=== PATIENT | male | born 1965 | race Caucasian/White ===

== ENCOUNTER 2016-10-04 10:08 | Inpatient (IN) | payer OTHER ==
[2016-10-09] MEDS ORDERED: methylPREDNISolone SOD SUCCI 125 MG/2 ML VIAL IVP ONE (09:00)
[2016-10-09] MEDS ORDERED: diphenhydrAMINE 50 MG/ML 1 ML VIAL IVP ONE (09:00)
[2016-10-09] MEDS ORDERED: riTUXimab 660 MG in SODIUM CHLORIDE 0.9% 500 ML IV ONE (10:00)
[2016-10-09 10:07] LABS: Anisocytosis Slight; Basophils # (A) 0.1 k/uL (0-0.2); Basophils % (A) 1 %; CH 29.9; CHCM 33.5; Eosinophils # (A) 0.2 k/uL (0-0.7); Eosinophils % (A) 3 %; HCT 33.1 % (39.0-53.0); HDW 3.66; HGB 10.9 gm/dL (13.0-17.5); Luc # (Auto) 0.17; Luc % (Auto) 2; Lymphocytes # (A) 0.4 k/uL (1.0-4.8); Lymphocytes % (A) 5 %; MCH 29.6 pg (25.0-35.0); MCHC 32.9 g/dL (31.0-37.0); MCV 89.9 fL (80.0-100.0); Mean Platelet Volume 6.2; Monocytes # (A) 0.5 k/uL (0-1.0); Monocytes % (A) 7 %; Neutrophils # (A) 5.8 k/uL (1.3-7.7); Neutrophils % (A) 82 %; Poikilocytosis Slight; RBC 3.69 m/uL (4.30-5.90); RDW 16.5 % (11.5-15.5); WBC 7.1 k/uL (3.8-10.6); WBC (Perox) 7.65
[2016-10-09] MEDS: ONDANSETRON 16 MG in SODIUM CHLORIDE 0.9% 50 ML IVPB SCH (10:12)
[2016-10-09 10:19] LABS: INR 1.2 (<1.1); Prothrombin Time 11.5 sec (9.0-12.0)
[2016-10-09] MEDS: HYDROmorphone 1 MG/ML 1 ML SYRINGE IVP PRN ×4 (10:19→23:03)
[2016-10-09 10:24] LABS: ALT 26 U/L (21-72); AST 20 U/L (17-59); Alkaline Phosphatase 113 U/L (38-126); Anion Gap 11 mmol/L; Blood Urea Nitrogen 7 mg/dL (9-20); Calcium 9.5 mg/dL (8.4-10.2); Carbon Dioxide 31 mmol/L (22-30); Chloride 99 mmol/L (98-107); Glucose 134 mg/dL (74-99); Non-African American GFR(MDRD) >60 (>60 ml/min/1.73 sqM); Potassium 3.6 mmol/L (3.5-5.1); Sodium 141 mmol/L (137-145); Total Bilirubin 1.4 mg/dL (0.2-1.3); Total Protein 5.9 g/dL (6.3-8.2)
[2016-10-09] MEDS: predniSONE 50 MG TAB PO SCH ×2 (11:18→21:27)
[2016-10-09] MEDS: FAMOTIDINE 20 MG/2 ML VIAL IVP SCH (11:18)
--- NOTE | 2016-10-09 15:15 | P.HPIM ---
History of Present Illness H&P Date: 10/09/16 Chief Complaint: CIVI for recurrent lymphoma Gopal is a very pleasant 51-year-old male patient of Dr. Stacy who is very well-known known to our service. He was initially diagnosed in September 2014 when he presented with multiple enlarged lymph nodes in the right neck, right groin and bilateral axillary area. He had axillary node biopsy on 2013 revealing a low grade B-cell non-Hodgkin's lymphoma, felt to be consistent with follicular lymphoma. PET scan for staging showed stage III disease at that time. Patient was placed in observation. In 2015 he started having increasing back pain and was found to have progressive virgie enlargement with right hydronephrosis. Patient was started on Rituxan and Bendeka and completed 5 cycles in June 2016. After 3 cycles imaging showed he had an excellent response, cycle #6 was omitted to due to treatment toxicities. Less than a month and a half later patient presented with increased pain and swelling in the right groin. Computed tomography scan showed a new large mass occupying the entire right half of the abdomen extending from the groin to the pancreas. 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 Patient was started on systemic treatment with REPOCH. He has had 2 cycles and is admitted for cycle #3. When seen today the patient explained to me that he had been in the ER 2 days ago for significant groin pain. The pain was so bad that it was doubling him over. Pain was in the bilateral groin areas as well as the suprapubic area, persistent, pain meds were not helping, no associated constipation, dysuria, hematuria, diarrhea. Patient was subsequently sent home and he presents today for treatment with similar complaints in the groin area. The right groin has a lump that is warm and tender to the touch. He has a left anterior cervical lymph node swelling that he states also started 2 days ago. He did have a fever over 101 Fahrenheit, no fevers since the weekend. Patient has left shoulder pain that occurs with rotation of the left arm. There is no numbness or tingling in hands, no loss of muscle strength. Patient feels pretty tired, denies oral irritation, difficulty in swallowing, appetite is fair, no current nausea or vomiting, no shortness of breath or cough, he does have some epigastric discomfort if he presses on his abdomen, patient is independently ambulatory. Review of Systems All systems: negative Constitutional: Reports as per HPI Past Medical History Past Medical History: Cancer, Hypertension, Osteoarthritis (OA) Additional Past Medical History / Comment(s): Lymphoma-dx . USING MOUTH RINSE W / SALT & SODA PRN D/T CHEMO SE. CHEMO Q3 WEEKS FOR 6 DAYS. History of Any Multi-Drug Resistant Organisms: None Reported Past Surgical History: Orthopedic Surgery Additional Past Surgical History / Comment(s): SHATTERED RT HEEL-SX TO REPAIR- HAS PLATE, TEETH EXTRACTED , laparoscopy w/ bx. LYMPH NODE BX. Additional Past Anesthesia/Blood Transfusion Reaction / Comment(s): HAS OCC BECOME COMBATIVE AFTER SX, AND YELLING AND SCREAMING Past Psychological History: No Psychological Hx Reported Smoking Status: Former smoker Past Alcohol Use History: None Reported Additional Past Alcohol Use History / Comment(s): SMOKED OFF AND ON WHEN IN 3RD -4TH AND 5TH GRADE THEN MOVED UP [place] AND DID'NT SMOKE AGAIN UNTIL HE WAS 18- SMOKED 1PPD.quit 08-01-16. Past Drug Use History: None Reported - Past Family History Father Family Medical History: Diabetes Mellitus, Myocardial Infarction ([place]) Additional Family Medical History / Comment(s): ORGANIC BRAIN DISEASE Mother Family Medical History: No Reported History Additional Family Medical History / Comment(s): HERNIA SX. MOM IS 83 AND VERY ACTIVE LIVES IN [place] AND STILL MOWS HER OWN GRASS. Medications and Allergies Home Medications Medication Instructions Recorded Confirmed Type Lactose-Reduced Food [Boost] 237 ml PO TID 09/19/16 10/09/16 History Prochlorperazine [Compazine] 10 mg PO Q6H PRN 10/09/16 10/09/16 History Allergies Allergy/AdvReac Type Severity Reaction Status Date / Time No Known Allergies Allergy Verified 10/09/16 09:42 Physical Exam Vitals: Vital Signs Temp Pulse Resp BP Pulse Ox 10/09/16 14:07 72 137/77 10/09/16 13:18 98.0 F 77 18 147/83 10/09/16 12:26 78 152/91 10/09/16 11:46 74 158/89 10/09/16 11:37 74 162/95 10/09/16 09:30 98.2 F 80 23 156/93 96 Intake and Output 10/08/16 10/09/16 10/09/16 22:59 06:59 14:59 Intake Total 120 Balance 120 Intake: Oral 120 Other: Voiding Method Toilet Weight 61.689 kg Patient Weight 10/10/16 06:59 Weight 61.689 kg - Constitutional General appearance: average body habitus, cooperative, mild distress - EENT right upper lip pea sized mass, hard, purple hue of color to it, no drainage or blisters. Eyes: anicteric sclerae, edentulous, EOMI, normal apperance ENT: hearing grossly normal, normal oropharynx - Neck [place] sized hard, fixed LN in the left anterior cervical chain Neck: lymphadenopathy - Respiratory Respiratory: bilateral: CTA - Cardiovascular Heart sounds: normal: S1, S2 Abnormal Heart Sounds: no systolic murmur, no diastolic murmur, no rub, no S3 Gallop, no S4 Gallop, no click, no other leg Peripheral Edema: bilateral: None - Gastrointestinal General gastrointestinal: no absent bowel sounds, no decreased bowel sounds, no distended, no hepatomegaly, no hyperactive bowel sounds, normal bowel sounds, no organomegaly, no rigid, no scaphoid, soft, no splenomegaly, tenderness, no umbilical hernia, no ventral hernia Localized gastrointestinal: tender: epigastric periumbilical - Genitourinary right groin incision is hard and red, left groin irregular 5cm, red, tender mass , soft, superior to this there feels like an egg size mass. Male genitourinary: left inguinal lymphadenopathy - Integumentary Integumentary: pale - Neurologic Neurologic: CNII-XII intact - Musculoskeletal Musculoskeletal: strength equal bilaterally - Psychiatric Psychiatric: A&O x's 3, appropriate affect, intact judgment & insight Results CBC & Chem 7: 10/09/16 09:40 10/09/16 09:40 Labs: Abnormal Lab Results - Last 24 Hours (Table) 10/09/16 10/09/16 Range/Units 09:40 09:40 RBC 3.69 L (4.30-5.90) m/uL Hgb 10.9 L (13.0-17.5) gm/dL Hct 33.1 L (39.0-53.0) % RDW 16.5 H (11.5-15.5) % Lymphocytes # 0.4 L (1.0-4.8) k/uL Carbon Dioxide 31 H (22-30) mmol/L BUN 7 L (9-20) mg/dL Glucose 134 H (74-99) mg/dL Total Bilirubin 1.4 H (0.2-1.3) mg/dL Total Protein 5.9 L (6.3-8.2) g/dL CT scan - abdomen: report reviewed CT scan - chest: report reviewed CT scan - pelvis: report reviewed Thrombosis Risk Factor Assmnt - DVT/VTE Prophylaxis DVT/VTE Prophylaxis: Mechanical Prophylaxis ordered - Choose All That Apply Any of the Below Risk Factors Present?: Yes Each Factor Represents 1 point: Age 41-60 years Other Risk Factors: No Other congenital or acquired thrombophilia - If yes, enter type in comment: No Thrombosis Risk Factor Assessment Total Risk Factor Score: 1 Thrombosis Risk Factor Assessment Level: Low Risk Assessment and Plan (1) Diffuse large B-cell lymphoma of extranodal site Narrative/Plan: Admit for CIVI chemotherapy, orders were reviewed, labs daily, supportive meds available Status: Chronic (2) Testicular/scrotal pain Narrative/Plan: Case discussed with IM, US ordered for evaluation. Status: Acute (3) Left cervical lymphadenopathy Narrative/Plan: Will reevaluate in AM Status: Acute Plan: Case discussed at length with IM. Empiric abx have been ordered and consult to ID. Will await evaluation and recommendations.
--- NOTE | 2016-10-09 15:28 | P.CONS ---
History of Present Illness - Reason for Consult Consult date: 10/09/16 Medical management Requesting physician: Jerrod Stacy - History of Present Illness 51-year-old gentleman who was recently diagnosed with Hodgkin's lymphoma after a biopsy of a right inguinal mass. Is admitted to the hospital for third cycle of his chemotherapy with rituximab and vincristine prednisone, cyclophosphamide and etoposide. Patient was evaluated on the day of chemotherapy. Patient was noted to have a new lump in his neck that is 2 days old. Patient also has a hardened lesion on his upper lip. Patient is complaining of some pain in his groin associated with urinary urgency. Patient noted some tenderness around his urethra and bilaterally around his groin area. He apparently also had a fever 101 prior to admission. Denies having any history of STDs in the past. Patient also started notes a pain in his left shoulder. Patient is unable to move it due to severe pain especially above his shoulder. Review of Systems All systems: negative (Noted in hpi) Past Medical History Past Medical History: Cancer, Hypertension, Osteoarthritis (OA) Additional Past Medical History / Comment(s): Lymphoma-dx . USING MOUTH RINSE W / SALT & SODA PRN D/T CHEMO SE. CHEMO Q3 WEEKS FOR 6 DAYS. History of Any Multi-Drug Resistant Organisms: None Reported Past Surgical History: Orthopedic Surgery Additional Past Surgical History / Comment(s): SHATTERED RT HEEL-SX TO REPAIR- HAS PLATE, TEETH EXTRACTED , laparoscopy w/ bx. LYMPH NODE BX. Additional Past Anesthesia/Blood Transfusion Reaction / Comm: HAS OCC BECOME COMBATIVE AFTER SX, AND YELLING AND SCREAMING Past Psychological History: No Psychological Hx Reported Smoking Status: Former smoker Past Alcohol Use History: None Reported Additional Past Alcohol Use History / Comment(s): SMOKED OFF AND ON WHEN IN 3RD -4TH AND 5TH GRADE THEN MOVED UP [place] AND DID'NT SMOKE AGAIN UNTIL HE WAS 18- SMOKED 1PPD.quit 08-01-16. Past Drug Use History: None Reported - Past Family History Father Family Medical History: Diabetes Mellitus, Myocardial Infarction ([place]) Additional Family Medical History / Comment(s): ORGANIC BRAIN DISEASE Mother Family Medical History: No Reported History Additional Family Medical History / Comment(s): HERNIA SX. MOM IS 83 AND VERY ACTIVE LIVES IN [place] AND STILL MOWS HER OWN GRASS. Medications and Allergies Home Medications Medication Instructions Recorded Confirmed Type Lactose-Reduced Food [Boost] 237 ml PO TID 09/19/16 10/09/16 History Prochlorperazine [Compazine] 10 mg PO Q6H PRN 10/09/16 10/09/16 History Allergies Allergy/AdvReac Type Severity Reaction Status Date / Time No Known Allergies Allergy Verified 10/09/16 09:42 Physical Exam Vitals: Vital Signs Temp Pulse Resp BP Pulse Ox 10/09/16 14:07 72 137/77 10/09/16 13:18 98.0 F 77 18 147/83 10/09/16 12:26 78 152/91 10/09/16 11:46 74 158/89 10/09/16 11:37 74 162/95 10/09/16 09:30 98.2 F 80 23 156/93 96 Intake and Output 10/09/16 10/09/16 10/09/16 06:59 14:59 22:59 Intake Total 120 Balance 120 Intake: Oral 120 Other: Voiding Method Toilet Weight 61.689 kg Patient Weight 10/10/16 06:59 Weight 61.689 kg Appearance alert oriented 3 Upper lip there is a hard indurated lesion on the right upper lip Neck there is a large mass appreciated on the supraclavicular region on the left. No axillary lymph nodes are appreciated Lungs good air entry clear to auscultation Heart regular rate and rhythm no murmurs appreciated Abdomen is soft nontender no organomegaly Inguinal region there is multiple indurated erythematous lesions and diffusely indurated around the base of the urethra into the bilateral inguinal area. There is some tenderness on palpation of the cord. No scrotal swelling is noted cremasteric reflex is intact. Neurologically moves all 4 extremities. Results CBC & Chem 7: 10/09/16 09:40 10/09/16 09:40 Labs: Abnormal Lab Results - Last 24 Hours (Table) 10/09/16 10/09/16 Range/Units 09:40 09:40 RBC 3.69 L (4.30-5.90) m/uL Hgb 10.9 L (13.0-17.5) gm/dL Hct 33.1 L (39.0-53.0) % RDW 16.5 H (11.5-15.5) % Lymphocytes # 0.4 L (1.0-4.8) k/uL Carbon Dioxide 31 H (22-30) mmol/L BUN 7 L (9-20) mg/dL Glucose 134 H (74-99) mg/dL Total Bilirubin 1.4 H (0.2-1.3) mg/dL Total Protein 5.9 L (6.3-8.2) g/dL Assessment and Plan Plan: #1 Hodgkin's lymphoma currently admitted for chemotherapy. #2 fever of unknown origin suspicion for an infectious process however recurrent bulky lymph nodes are also other differential diagnosis Plan We'll obtain a scrotal ultrasound. Patient was started on Zosyn empirically as patient did have a fever 101. There is multiple bulky lymph nodes including in the anterior neck. A computed tomography scan from 07 of October is reviewed. Did not note the large bulky mass on the left side. This is new compared to a scan 2 years ago. A shoulder x-ray will also be done. There is strength remaining. Would like to rule out a bony lesion. Benefit from an MRI later, with suspicion for superspinatus tendon damage. Time with Patient: Greater than 30
--- NOTE | 2016-10-09 16:05 | XR ---
EXAMINATION TYPE: XR shoulder complete LT DATE OF EXAM: 10/09/2016 4:01 PM COMPARISON: NONE HISTORY: Pain The osseous structures are intact. There is no acute fracture or dislocation. The AC joint is narro wed with hypertrophic change. IMPRESSION: 1. AC joint arthropathy correlate with MRI. Possible chronic rotator cuff disease.
[2016-10-09] MEDS: SODIUM CHLORIDE 0.9% IV SCH ×2 (16:27→16:28)
[2016-10-09] MEDS: VINCRISTINE SULFATE IV SCH (16:27)
[2016-10-09] MEDS: ETOPOSIDE 90 MG in SODIUM CHLORIDE 0.9% 250 ML IV SCH (16:27)
[2016-10-09] MEDS: SALT AND SODA MOUTHWASH 1,000 ML PO SCH ×3 (16:28→20:37)
[2016-10-09] MEDS: DOXORUBICIN HCL IV SCH (16:28)
--- NOTE | 2016-10-09 16:42 | US ---
EXAMINATION TYPE: US scrotum with doppler. TECHNIQUE: Multiple sonographic images of the scrotum were obtained. Color Doppler and spectral wavef orm analysis of the testicular arteries and veins. DATE OF EXAM: 10/09/2016 4:18 PM COMPARISON: NONE CLINICAL HISTORY: 51-year-old male. Right testicular pain. Patient has a history of non Hodgkin's ly mphoma. FINDINGS: EXAM MEASUREMENTS: TESTICLES: Right Testicle: 4.6 x 2.9 x 3.1 cm cm for a volume of 21.7 mL. Left Testicle: 4.2 x 2.3 x 2.4 cm cm for a volume of 12.0 mL. The right testicle shows large hypoechoic regions with increased vascularity. One of these areas stefany ures up to 2.6 cm and a second area measures up to 2.3 cm. Satisfactory arterial and venous flow seen on the right. Satisfactory arterial flow seen on the left with some superimposed venous flow. EPIDIDYMIS HEAD: Right Epididymis: 1.3 x 0.8 cm Left Epididymis: 1.0 x 0.9 cm No epididymal hyperemia seen. There is a moderate-sized right hydrocele containing some low-level echoes. IMPRESSION: 1. A couple focal hypoechoic and hyperemic areas within the right testicle measuring up to 2.6 cm. Or chitis and intratesticular masses including lymphomatous involvement are in the differential. 2. Not sonographic evidence for testicular torsion. 3. Moderate sized right-sided hydrocele containing some debris.
[2016-10-09] MEDS: PIPERACILLIN-TAZOBACTAM 3.375 GM in DEXTROSE/WATER 1 50ML.BAG IVPB SCH (18:27)
[2016-10-09] MEDS: SODIUM CHLORIDE 0.9% 1,000 ML IV SCH (18:31)
[2016-10-09] MEDS: ONDANSETRON 4 MG/2 ML VIAL IVP PRN (20:25)
[2016-10-10] MEDS: PIPERACILLIN-TAZOBACTAM 3.375 GM in DEXTROSE/WATER 1 50ML.BAG IVPB SCH ×3 (01:52→18:12)
[2016-10-10] MEDS: HYDROmorphone 1 MG/ML 1 ML SYRINGE IVP PRN ×5 (01:52→21:07)
[2016-10-10] MEDS: ONDANSETRON 4 MG/2 ML VIAL IVP PRN ×2 (01:52→21:07)
[2016-10-10] MEDS: SODIUM CHLORIDE 0.9% 1,000 ML IV SCH ×4 (01:57→21:10)
[2016-10-10 13:00] VITALS: BMI 21.2
--- NOTE | 2016-10-10 13:04 | PN ---
Patient is admitted here for chemotherapy with new lumps in the inguinal are and the left neck area. Patient had started fever probably of cancer itself and chemotherapy itself. Patient presently clinically doing well and patient was evaluated by Infectious Disease as per Oncology's request and they do not recommend any antibiotics but patient does have significant hardness in the inguinal area and pain in the testicle area radiating to the abdomen because of which Infectious Disease consulted Urology. REVIEW OF SYSTEMS: GENERAL: Pain as described in HPI. CARDIOVASCULAR: No chest pain, no orthopnea, no PND, no palpitations. PULMONARY: Denied any shortness of breath. No cough or hemoptysis. GASTROINTESTINAL: No diarrhea, nausea or vomiting. No abdominal pain. Normoactive bowel sounds. NEUROLOGIC: No headaches, no weakness, no numbness. Medications were reviewed. PHYSICAL EXAMINATION: Temperature 97.0, pulse of 80, respiratory rate of 70, blood pressure 140/93. Saturating at 96% on room air. GENERAL: The patient is alert and oriented x3, not in any acute distress. Well developed, well nourished. HEENT: Pupils are round and equally reacting to light. EOMI. No scleral icterus. No conjunctival pallor. Normocephalic, atraumatic. No pharyngeal erythema. No thyromegaly. CARDIOVASCULAR: S1 and S2 present. No murmurs, rubs, or gallops. PULMONARY: Chest is clear to auscultation, no wheezing or crackles. ABDOMEN: Soft, nontender, nondistended, normoactive bowel sounds. No palpable organomegaly. MUSCULOSKELETAL: No joint swelling or deformity. EXTREMITIES: No cyanosis, clubbing, or pedal edema. NEUROLOGICAL: Gross neurological examination did not reveal any focal deficits. SKIN: No rashes. LYMPH NODE EXAM: Patient has significantly enlarged matted lymph nodes in the left cervical area as well as right inguinal area. Patient appears to be have mostly significant diffuse lymphadenopathy from lymphoma. ASSESSMENT AND PLAN: 1. Hodgkin's lymphoma, admitted for chemotherapy. Patient is presently getting chemotherapy. 2. Fever, possible source being chemo. No source was identified. Patient is on empiric antibiotics, which probably will be discontinued if the cultures are negative. 3. Vestibular pain and swelling due to lymphadenopathy. I believe but Urology was consulted regarding that.
--- NOTE | 2016-10-10 16:21 | CONS ---
DATE OF CONSULTATION: 10/10/2016 REASON FOR CONSULTATION: Left groin swelling. HISTORY OF PRESENT ILLNESS: The patient is a 51-year-old male with a past medical history significant for non-Hodgkin lymphoma, B-cell, no grade, for which the patient has been on chemo. The patient has been admitted to hospital with right groin pain and swelling. Apparently his symptoms have been going on for about 3 to 4 weeks now. The patient said he woke up and started having throbbing pain in his right groin area. The patient denies having any history of any trauma. There is no skin breakdown. There is no drainage. The patient denies any high-grade fever or chills. He was evaluated in the ER and was discharged on some pain medication. However, there was worsening swelling, red and pain in the area and he came to the ER. He has admitted to the hospital directly. I was asked to see the patient for further recommendations regarding antibiotic therapy. The patient did have some dull aching pain in the scrotal area; however, denies any history of any trauma. Pain is 1 to 2 out of 10 and no radiation. There is no skin breakdown. No drainage. The patient denies having any chest pain or shortness of breath or cough. No abdominal pain or any diarrhea. REVIEW OF SYSTEMS: CONSTITUTIONAL: Positive for weakness and some fever. EYES: No complaint. ENT: No complaint. RESPIRATORY: No complaint. CARDIOVASCULAR: No complaint. GENITOURINARY: As per HPI. GASTROINTESTINAL: No complaint. MUSCULOSKELETAL: No complaint. INTEGUMENTARY: No complaint. PSYCHOLOGICAL: No complaint. ENDOCRINE: No complaint. NEUROLOGIC: No complaint. PAST MEDICAL HISTORY: 1. Osteoarthritis. 2. Hypertension. 3. History of non-Hodgkin lymphoma. PAST SURGICAL HISTORY: 1. Right heel fracture repair. 2. Laparoscopy with biopsy. 3. Lymph node biopsy. SOCIAL HISTORY: Positive for smoking. The patient recently quit about 2 months ago. No drinking or any drug use. Patient is sexually inactive and did have any sexual partners for the last 5 years. FAMILY HISTORY: Father with history of [place], organic brain disease and diabetes. ALLERGIES: NO KNOWN DRUG ALLERGIES. Medications currently include: 1. Cyclophosphamide. 2. Doxorubicin. 3. Etoposide. 4. Pepcid. 5. Dilaudid. 6. Zofran. 7. Piperacillin tazobactam. 8. Prednisone. 9. Vincristine. On examination, blood pressure is 140/93 with a pulse of 85, temperature 97. No fever has been recorded since he has been here. He is 96% on room air. General description is a middle-aged male lying in bed in no distress. No tachypnea or accessory muscle of respiration use. HEENT EXAMINATION: Pallor. No scleral icterus. Oral mucous membrane dry. NECK: Trachea is central. No thyromegaly. LUNGS: Unlabored breathing. Clear to auscultation anteriorly. No wheeze or crackle. HEART: S1, S2. Regular rate and rhythm. ABDOMEN: Soft. No tenderness. GROIN AREA: The patient did have evidence of lymphadenopathy in the right groin area. It is not significantly inflamed, though. No significant swelling, redness or tenderness was noticed on the testicle examination. EXTREMITIES: No edema of feet. SKIN EXAMINATION: No rash or mass palpable. Neurologically the patient is awake, alert, oriented x3. Mood and affect normal. LABS: Hemoglobin is 10.9. White count is 7.1 with a BUN of 7, creatinine 0.73. Patient did have a scrotal ultrasound which did show focal herpes and hyperemic areas with the right testicle measuring up to 2.6 cm. Orchitis or intratesticular masses. No evidence of testicular torsion. DIAGNOSTIC IMPRESSION AND PLAN: Patient with right inguinal lymphadenopathy likely secondary to abnormality that was seen on his right testicular area with a question of possible infection versus malignancy , infection less likely, as the patient is not running any fever, at least here, did not have an elevated white count, and no significant inflammatory changes were noticed either in the scrotum or in the right groin area. Even if infection is etiology, more likely pathogen would be the Gram-negative pathogen, as the patient has not been sexually active the last 5 years. PLAN: 1. Would recommend evaluation by Urology, since he may need drainage of this testicular as well as groin site, both for culture as well as for histopathology. 2. Continue patient on Zosyn at 3.375 grams IV piggyback q.8 hourly. 3. Will follow up on the clinical condition and cultures to further adjust medication if needed. Thank you for this consultation. Will follow this patient along with you. YAMINI
--- NOTE | 2016-10-10 16:25 | P.PN ---
Subjective Principal diagnosis: Admit for CIVI, diffuse large B cell/follicular lymphoma Pt seen today in follow up. He states good appetite today, no nausea or vomiting, oral irritation or dysphagia. The mass in his left neck to him feels a little softer maybe a little smaller. Denies cough, abd pain or bloating, he had a normal BM this AM, he denies any difficulty with urination, he is ambulating. Objective - Vital Signs Vital signs: Vital Signs Temp 97 F L 10/10/16 06:30 Pulse 85 10/10/16 06:30 Resp 17 10/10/16 06:30 BP 140/93 10/10/16 06:30 Pulse Ox 96 10/10/16 06:30 Intake & Output 10/09/16 10/10/16 10/10/16 18:59 06:59 18:59 Intake Total 1442.8 2066.12 Output Total 1250 Balance 1442.8 816.12 Weight 61.689 kg 61.689 kg Intake: IV 722.8 2066.12 DOXOrubicin HCL 18 mg In 18 54 Sodium Chloride 0.9% 100 ml @ 4.542 mls/hr IV DAILY@1400 [facility] Rx#: [id number] Etoposide 90 mg In Sodium 45.6 136.8 Chloride 0.9% 250 ml @ 10.604 mls/hr IV DAILY@ 1400 [facility] Rx#:[id number] Piperacillin-Tazobactam 3 50 50 .375 gm In Dextrose/Water 1 50ml.bag @ 12.5 mls/hr IVPB Q8HR [facility] Rx#: [id number] Sodium Chloride 0.9% 1, 600 1800 000 ml @ 150 mls/hr IV . Q6H40M [facility] Rx#:[id number] vinCRIStine SULFATE 0.7 9.2 25.32 mg In Sodium Chloride 0.9 % 50 ml @ 2.113 mls/hr IV DAILY@1400 [facility] Rx#: [id number] Oral 720 Output: Urine 1250 Other: Voiding Method Toilet Toilet Toilet # Voids 1 2 - Constitutional General appearance: Present: average body habitus, cooperative, no acute distress - EENT Eyes: Present: anicteric sclerae, edentulous, normal apperance ENT: Present: hearing grossly normal, normal oropharynx - Neck Details: left neck mass, anterior cervical area, fixed, slightly softer and maybe a bit smaller then yesterday, painless Neck: Present: lymphadenopathy. Absent: normal ROM, other, rigidity, stridor, thyromegaly - Respiratory Respiratory: bilateral: CTA - Cardiovascular Heart sounds: normal: S1, S2 - Peripheral edema leg Peripheral Edema: bilateral: None - Gastrointestinal General gastrointestinal: Present: normal bowel sounds, soft. Absent: absent bowel sounds, decreased bowel sounds, distended, hepatomegaly, hyperactive bowel sounds, organomegaly, rigid, scaphoid, splenomegaly, tenderness, umbilical hernia, ventral hernia - Genitourinary Genitourinary Comment(s): left, lateral to base of penis, irregular tender mass, red but less red then yesterday, right inguinal mass, less red. - Integumentary Integumentary: Present: normal - Neurologic Neurologic: Present: CNII-XII intact - Musculoskeletal Musculoskeletal: Present: strength equal bilaterally - Psychiatric Psychiatric: Present: A&O x's 3, appropriate affect, intact judgment & insight - Labs CBC & Chem 7: 10/09/16 09:40 10/09/16 09:40 - Imaging and Cardiology shoulder x ray report reviewed Assessment and Plan (1) Diffuse large B-cell lymphoma of extranodal site Narrative/Plan: Cont CIVI chemotherapy, labs daily, supportive meds available Status: Chronic (2) Testicular/scrotal pain Narrative/Plan: Urology consulted, did review CT from 10/07 with Radiologist, the inguinal region is swollen, cellulitis like presentation, there is a vascular mass in the right testicle. Pt is not having any trouble urinating. Await Urology evaluation Status: Acute (3) Left cervical lymphadenopathy Narrative/Plan: US has been ordered of the left neck mass. Possible core biopsy with IR, will look at report in AM Status: Acute Plan: ID evaluated pt, abx ordered IM following pt as well GI prophylaxis DVT prophylaxis with SCDs and early ambulation at this time as pt may need procedures.
[2016-10-10] MEDS: ONDANSETRON 16 MG in SODIUM CHLORIDE 0.9% 50 ML IVPB SCH (17:10)
[2016-10-10] MEDS: FAMOTIDINE 20 MG/2 ML VIAL IVP SCH (17:10)
[2016-10-10] MEDS: predniSONE 50 MG TAB PO SCH ×2 (17:10→21:06)
--- NOTE | 2016-10-10 17:13 | P.GSCN ---
History of Present Illness Consult date: 10/10/16 History of present illness: The patient is a pleasant 51-year-old gentleman in the hospital for progression of his lymphoma. His he has a non-Hodgkin's lymphoma dating to 2013. Most recently had a biopsy by Dr. Marin in his right groin. Apparently foam is growing rapidly. I was asked to see the patient for both testicular swelling as well as a swelling in the penile region. This is gone on for a few days. Review of Systems - Respiratory Respiratory Comment(s): Denies shortness of breath - Genitourinary Reports as per HPI, Reports testicular lump Past Medical History Past Medical History: Cancer, Hypertension, Osteoarthritis (OA) Additional Past Medical History / Comment(s): Lymphoma-dx . USING MOUTH RINSE W / SALT & SODA PRN D/T CHEMO SE. CHEMO Q3 WEEKS FOR 6 DAYS. History of Any Multi-Drug Resistant Organisms: None Reported Past Surgical History: Orthopedic Surgery Additional Past Surgical History / Comment(s): SHATTERED RT HEEL-SX TO REPAIR- HAS PLATE, TEETH EXTRACTED , laparoscopy w/ bx. LYMPH NODE BX. Additional Past Anesthesia/Blood Transfusion Reaction / Comm: HAS OCC BECOME COMBATIVE AFTER SX, AND YELLING AND SCREAMING Past Psychological History: No Psychological Hx Reported Smoking Status: Former smoker Past Alcohol Use History: None Reported Additional Past Alcohol Use History / Comment(s): SMOKED OFF AND ON WHEN IN 3RD -4TH AND 5TH GRADE THEN [place] AND DID'NT SMOKE AGAIN UNTIL HE WAS 18- SMOKED 1PPD.quit 08-01-16. Past Drug Use History: None Reported - Past Family History Father Family Medical History: Diabetes Mellitus, Myocardial Infarction (HI) Additional Family Medical History / Comment(s): ORGANIC BRAIN DISEASE Mother Family Medical History: No Reported History Additional Family Medical History / Comment(s): HERNIA SX. MOM IS 83 AND VERY ACTIVE LIVES IN [place] AND STILL MOWS HER OWN GRASS. Medications and Allergies Home Medications Medication Instructions Recorded Confirmed Type Lactose-Reduced Food [Boost] 237 ml PO TID 09/19/16 10/09/16 History Prochlorperazine [Compazine] 10 mg PO Q6H PRN 10/09/16 10/09/16 History Allergies Allergy/AdvReac Type Severity Reaction Status Date / Time No Known Allergies Allergy Verified 10/09/16 09:42 Surgical - Exam Vital Signs Temp Pulse Resp BP Pulse Ox 98.2 F 80 23 156/93 96 10/09/16 09:30 10/09/16 09:30 10/09/16 09:30 10/09/16 09:30 10/09/16 09:30 - General well developed, well nourished - Eyes PERRL - ENT Dentures no hearing loss - Neck trachea midline - Respiratory normal expansion, normal respiratory effort - Cardiovascular Rhythm: regular - Abdomen Abdomen: soft, non tender - Genitourinary There is folliculitis in the mons pubis. There is swelling at the base of the penis. This appears to be lymphangitis. The right testicle is small but firm worrisome for lymphoma. There are several deep peroneal Results - Labs 10/09/16 09:40 10/09/16 09:40 Assessment and Plan Plan: Impression: Probable recurrent non-Hodgkin's lymphoma. Probable lymphoma and the right testicle. Folliculitis of the mons pubis. Recommendations: I would continue with local care and antibiotics for the folliculitis. He is to have a biopsy of the node in his neck does not lead to tissue diagnosis and orchiectomy would be required. I'll follow this patient with you
[2016-10-10] MEDS: SALT AND SODA MOUTHWASH 1,000 ML PO SCH ×4 (17:29→21:08)
[2016-10-10] MEDS: ETOPOSIDE 90 MG in SODIUM CHLORIDE 0.9% 250 ML IV SCH (18:55)
[2016-10-10] MEDS: SODIUM CHLORIDE 0.9% IV SCH ×2 (18:55→18:56)
[2016-10-10] MEDS: DOXORUBICIN HCL IV SCH (18:55)
[2016-10-10] MEDS: VINCRISTINE SULFATE IV SCH (18:56)
--- NOTE | 2016-10-10 20:09 | US ---
EXAMINATION TYPE: US thyroid st tissue head/neck DATE OF EXAM: 10/10/2016 7:57 PM COMPARISON: EXAMINATION TYPE: US thyroid st tissue head/neck DATE OF EXAM: 10/10/2016 7:57 PM COMPARISON: NONE CLINICAL HISTORY: US. Non-Hodgkin Lymphoma. Left neck mass. Chemotherapy. TECHNOLOGIST IMPRESSION: Area of palpable lump scanned. Complex vascular mass= 4.7 x 4.4 x 3.1 cm. IMPRESSION: In the area of concern there is a mass with internal vascularity that measures 4.7 x 3.1 cm. This is consistent with an enlarged lymph node.
[2016-10-11] MEDS: PIPERACILLIN-TAZOBACTAM 3.375 GM in DEXTROSE/WATER 1 50ML.BAG IVPB SCH ×4 (00:06→23:54)
[2016-10-11] MEDS: HYDROmorphone 1 MG/ML 1 ML SYRINGE IVP PRN ×7 (00:07→23:59)
[2016-10-11] MEDS: SODIUM CHLORIDE 0.9% 1,000 ML IV SCH ×3 (04:06→20:14)
[2016-10-11 06:15] LABS: Anisocytosis Slight; Basophils % (A) 0 %; CH 29.8; CHCM 32.8; Eosinophils % (A) 0 %; HCT 28.6 % (39.0-53.0); HDW 3.58; Hypochromasia Slight; Luc # (Auto) 0.04; Luc % (Auto) 0; Lymphocytes # (A) 0.2 k/uL (1.0-4.8); Lymphocytes % (A) 2 %; MCH 30.2 pg (25.0-35.0); MCHC 32.9 g/dL (31.0-37.0); MCV 91.8 fL (80.0-100.0); Mean Platelet Volume 7.1; Monocytes # (A) 0.3 k/uL (0-1.0); Monocytes % (A) 2 %; Neutrophils # (A) 11.7 k/uL (1.3-7.7); Neutrophils % (A) 96 %; Poikilocytosis Slight; RBC 3.12 m/uL (4.30-5.90); RDW 16.7 % (11.5-15.5); WBC 12.2 k/uL (3.8-10.6)
[2016-10-11 06:25] LABS: ALT 35 U/L (21-72); AST 23 U/L (17-59); Alkaline Phosphatase 85 U/L (38-126); Anion Gap 8 mmol/L; Blood Urea Nitrogen 17 mg/dL (9-20); Calcium 8.5 mg/dL (8.4-10.2); Carbon Dioxide 30 mmol/L (22-30); Chloride 105 mmol/L (98-107); Glucose 140 mg/dL (74-99); Non-African American GFR(MDRD) >60 (>60 ml/min/1.73 sqM); Potassium 4.3 mmol/L (3.5-5.1); Sodium 143 mmol/L (137-145); Total Bilirubin 0.7 mg/dL (0.2-1.3); Total Protein 5.3 g/dL (6.3-8.2)
[2016-10-11] MEDS ORDERED: BENZOCAINE/MENTHOL LOZENG 1 EACH LOZENGE MUCOUS MEM PRN (06:38)
[2016-10-11 06:59] LABS: HGB 9.4 gm/dL (13.0-17.5)
--- NOTE | 2016-10-11 10:53 | US ---
Ultrasound-guided core biopsy left neck soft tissue mass CLINICAL HISTORY: Lymphoma with left neck mass FINDINGS: The procedure was explained to the patient. The risks, complications, benefits and alternatives were discussed and any questions were answered. Informed consent was obtained. Patient was placed supin e on the ultrasound table and prepped and draped in the usual sterile fashion. Utilizing a 18-gauge needle, multiple passes were made into the requested mass. Patient was stable throughout the procedure. Pathology is pending. All elements of maximal barrier and sterile technique were utilized. IMPRESSION: 1. Successful ultrasound guided core biopsy soft tissue mass left neck.
[2016-10-11] MEDS: SALT AND SODA MOUTHWASH 1,000 ML PO SCH ×4 (11:21→20:21)
[2016-10-11] MEDS: predniSONE 50 MG TAB PO SCH ×2 (11:21→20:20)
--- NOTE | 2016-10-11 15:33 | P.PN ---
Subjective Principal diagnosis: Admit for CIVI, diffuse large B cell/follicular lymphoma Pt seen in followup, he had left neck mass biopsy, minimal discomfort at the site, he denies fevers, oral irritation, nausea, vomiting, appetite is decent, no reflux, abd pain or bloating, suprapubic and bilateral groin pain persists but he feels it is a little better, less red and tender to touch, he is ambulating frequently. Objective - Vital Signs Vital signs: Vital Signs Temp 98 F 10/11/16 11:25 Pulse 65 10/11/16 11:27 Resp 16 10/11/16 11:27 BP 156/86 10/11/16 11:27 Pulse Ox 97 10/11/16 11:27 Intake & Output 10/10/16 10/11/16 10/11/16 18:59 06:59 18:59 Intake Total 2816.12 Output Total 2200 Balance 616.12 Weight 61.689 kg Intake: IV 2016.12 DOXOrubicin HCL 18 mg In 54 Sodium Chloride 0.9% 100 ml @ 4.542 mls/hr IV DAILY@1400 [facility] Rx#: [id number] Etoposide 90 mg In Sodium 136.8 Chloride 0.9% 250 ml @ 10.604 mls/hr IV DAILY@ 1400 [facility] Rx#:[id number] Sodium Chloride 0.9% 1, 1800 000 ml @ 150 mls/hr IV . Q6H40M [facility] Rx#:[id number] vinCRIStine SULFATE 0.7 25.32 mg In Sodium Chloride 0.9 % 50 ml @ 2.113 mls/hr IV DAILY@1400 [facility] Rx#: [id number] Oral 800 Output: Urine 2200 Other: Voiding Method Toilet Toilet Toilet # Voids 2 2 - Constitutional General appearance: Present: average body habitus, cooperative, no acute distress - EENT Eyes: Present: anicteric sclerae, normal apperance ENT: Present: normal oropharynx - Neck Neck: Present: lymphadenopathy - Respiratory Respiratory: bilateral: CTA - Cardiovascular Rhythm: regular Heart sounds: normal: S1, S2 Abnormal Heart Sounds: Absent: systolic murmur, diastolic murmur, rub, S3 Gallop , S4 Gallop, click, other - Peripheral edema leg Peripheral Edema: bilateral: None - Gastrointestinal General gastrointestinal: Present: normal bowel sounds, soft. Absent: absent bowel sounds, decreased bowel sounds, distended, hepatomegaly, hyperactive bowel sounds, organomegaly, rigid, scaphoid, splenomegaly, tenderness, umbilical hernia, ventral hernia - Genitourinary Genitourinary Comment(s): left lateral penile/groin mass is less red, not as tender to touch and firmness is decreased, he continues to have multiple masses/lymph nodes in suprapubic area and right inguinal area, much smaller then previously - Integumentary Integumentary: Present: pale - Neurologic Neurologic: Present: CNII-XII intact - Musculoskeletal Musculoskeletal: Present: strength equal bilaterally - Psychiatric Psychiatric: Present: A&O x's 3, appropriate affect, intact judgment & insight - Labs CBC & Chem 7: 10/11/16 06:05 10/11/16 06:05 Labs: Abnormal Lab Results - Last 24 Hours (Table) 10/11/16 10/11/16 Range/Units 06:05 06:05 WBC 12.2 H (3.8-10.6) k/uL RBC 3.12 L (4.30-5.90) m/uL Hgb 9.4 L D (13.0-17.5) gm/dL Hct 28.6 L (39.0-53.0) % RDW 16.7 H (11.5-15.5) % Neutrophils # 11.7 H (1.3-7.7) k/uL Lymphocytes # 0.2 L (1.0-4.8) k/uL Glucose 140 H (74-99) mg/dL Total Protein 5.3 L (6.3-8.2) g/dL Albumin 3.2 L (3.5-5.0) g/dL Assessment and Plan (1) Diffuse large B-cell lymphoma of extranodal site Narrative/Plan: case was discussed with Dr. Stacy, continue chemo as ordered, labs daily, supportive meds available Status: Chronic (2) Testicular/scrotal pain Narrative/Plan: Pain meds are available, he has been seen by Urology and I spoke with Radiology re: images and impression. There is felt to be a component of folliculitis/ cellulitis with underlying lymphoma. Infectious Disease following, abx ongoing. Status: Acute (3) Left cervical lymphadenopathy Narrative/Plan: S/P biopsy, pending pathology Status: Acute Plan: ID evaluated pt, abx ordered IM following pt Urology following GI prophylaxis DVT prophylaxis with SCDs and early ambulation at this time as pt may need procedures.
--- NOTE | 2016-10-11 15:40 | P.PN ---
Subjective The foliiculitis appears less red today There is no fluctuance or crepititce. Theperineal nodules are the same. Alot of this is lymphatic obstruction He will c/w the ab and chemotherapy I will follow Objective - Vital Signs Vital signs: Vital Signs Temp 98 F 10/11/16 11:25 Pulse 65 10/11/16 11:27 Resp 16 10/11/16 11:27 BP 156/86 10/11/16 11:27 Pulse Ox 97 10/11/16 11:27 Intake & Output 10/10/16 10/11/16 10/11/16 18:59 06:59 18:59 Intake Total 2816.12 Output Total 2200 Balance 616.12 Weight 61.689 kg Intake: IV 2015. DOXOrubicin HCL 18 mg In 54 Sodium Chloride 0.9% 100 ml @ 4.542 mls/hr IV DAILY@1400 [facility] Rx#: [id number] Etoposide 90 mg In Sodium 136.8 Chloride 0.9% 250 ml @ 10.604 mls/hr IV DAILY@ 1400 [facility] Rx#:[id number] Sodium Chloride 0.9% 1, 1800 000 ml @ 150 mls/hr IV . Q6H40M [facility] Rx#:[id number] vinCRIStine SULFATE 0.7 25.32 mg In Sodium Chloride 0.9 % 50 ml @ 2.113 mls/hr IV DAILY@1400 [facility] Rx#: [id number] Oral 800 Output: Urine 2200 Other: Voiding Method Toilet Toilet Toilet # Voids 2 2 - Labs CBC & Chem 7: 10/11/16 06:05 10/11/16 06:05 Labs: Abnormal Lab Results - Last 24 Hours (Table) 10/11/16 10/11/16 Range/Units 06:05 06:05 WBC 12.2 H (3.8-10.6) k/uL RBC 3.12 L (4.30-5.90) m/uL Hgb 9.4 L D (13.0-17.5) gm/dL Hct 28.6 L (39.0-53.0) % RDW 16.7 H (11.5-15.5) % Neutrophils # 11.7 H (1.3-7.7) k/uL Lymphocytes # 0.2 L (1.0-4.8) k/uL Glucose 140 H (74-99) mg/dL Total Protein 5.3 L (6.3-8.2) g/dL Albumin 3.2 L (3.5-5.0) g/dL
[2016-10-11] MEDS: ONDANSETRON 16 MG in SODIUM CHLORIDE 0.9% 50 ML IVPB SCH (17:51)
[2016-10-11] MEDS: FAMOTIDINE 20 MG/2 ML VIAL IVP SCH (17:51)
[2016-10-11] MEDS: DOXORUBICIN HCL IV SCH (19:55)
[2016-10-11] MEDS: VINCRISTINE SULFATE IV SCH (19:55)
[2016-10-11] MEDS: SODIUM CHLORIDE 0.9% IV SCH ×2 (19:55)
[2016-10-11] MEDS: ETOPOSIDE 90 MG in SODIUM CHLORIDE 0.9% 250 ML IV SCH (19:55)
[2016-10-11 22:38] LABS: Appearance,Urine Clear (Clear); Bilirubin,Urine Negative (Negative); Glucose,Urine (UA) 1+ (Negative); Ketones,Urine Negative (Negative); Leukocyte Esterase,Urine Negative (Negative); Nitrite,Urine Negative (Negative); PH, Urine 5.5 (5.0-8.0); Protein,Urine Negative (Negative); Specific Gravity,Urine 1.012 (1.001-1.035); UA Billing (MACRO vs. MICRO) CHEM; Urobilinogen,Urine <2.0 mg/dL (<2.0)
[2016-10-12] MEDS: SODIUM CHLORIDE 0.9% 1,000 ML IV SCH ×4 (06:03→19:41)
[2016-10-12 06:21] LABS: Anisocytosis Slight; Basophils % (A) 0 %; CH 29.8; CHCM 32.8; Eosinophils % (A) 0 %; HCT 27.9 % (39.0-53.0); HDW 3.45; HGB 9.2 gm/dL (13.0-17.5); Hypochromasia Slight; Luc # (Auto) 0.02; Luc % (Auto) 0; Lymphocytes # (A) 0.1 k/uL (1.0-4.8); Lymphocytes % (A) 2 %; MCH 30.2 pg (25.0-35.0); MCHC 33.1 g/dL (31.0-37.0); MCV 91.4 fL (80.0-100.0); Mean Platelet Volume 6.9; Monocytes # (A) 0.2 k/uL (0-1.0); Monocytes % (A) 3 %; Neutrophils % (A) 95 %; Poikilocytosis Slight; RBC 3.05 m/uL (4.30-5.90); RDW 16.3 % (11.5-15.5); WBC 7.3 k/uL (3.8-10.6)
[2016-10-12 06:34] LABS: ALT 58 U/L (21-72); AST 42 U/L (17-59); Alkaline Phosphatase 89 U/L (38-126); Anion Gap 6 mmol/L; Blood Urea Nitrogen 16 mg/dL (9-20); Calcium 8.7 mg/dL (8.4-10.2); Carbon Dioxide 31 mmol/L (22-30); Chloride 103 mmol/L (98-107); Glucose 139 mg/dL (74-99); Non-African American GFR(MDRD) >60 (>60 ml/min/1.73 sqM); Potassium 4.2 mmol/L (3.5-5.1); Sodium 140 mmol/L (137-145); Total Bilirubin 0.9 mg/dL (0.2-1.3); Total Protein 5.1 g/dL (6.3-8.2)
[2016-10-12] MEDS: ONDANSETRON 4 MG/2 ML VIAL IVP PRN (08:08)
[2016-10-12] MEDS: predniSONE 50 MG TAB PO SCH ×2 (08:08→19:43)
[2016-10-12] MEDS: HYDROmorphone 1 MG/ML 1 ML SYRINGE IVP PRN ×5 (08:09→22:44)
[2016-10-12] MEDS: PIPERACILLIN-TAZOBACTAM 3.375 GM in DEXTROSE/WATER 1 50ML.BAG IVPB SCH ×2 (08:11→15:52)
--- NOTE | 2016-10-12 08:31 | PN ---
DATE OF SERVICE: 10/11/2016 REASON FOR FOLLOWUP: Left groin lymphadenopathy and orchitis. INTERVAL HISTORY: The patient is afebrile. Pain to the left groin as well as ( ) has slightly improved. The patient denies having any chest pain or shortness of breath or cough. No abdominal pain or any diarrhea. On examination, blood pressure is 158/81 with a pulse of 66, temperature is 97.1. He is 98% on room air. General description is a middle-age male lying in bed in no distress. RESPIRATORY SYSTEM: Unlabored breathing. Clear to auscultation anteriorly. HEART: S1, S2. Regular rate and rhythm. ABDOMEN: Soft. No tenderness. Left groin still has some lymphadenopathy. Testicle remains to be slightly swollen. DIAGNOSTIC IMPRESSION AND PLAN: Patient with left groin cellulitis with underlying lymphadenopathy more likely due to diffuse abnormality in the right testicular area with a question of possible malignancy. Clinically not behaving as an abscess as the patient is not running any high grade fever and no significantly elevated white count. Culture has been ordered. The patient will continue on Zosyn and will continue monitoring closely. MTDD
[2016-10-12] MEDS: SALT AND SODA MOUTHWASH 1,000 ML PO SCH ×4 (10:35→21:20)
--- NOTE | 2016-10-12 12:30 | PN ---
The patient is undergoing chemotherapy with significantly decreased lumps in his neck area and inguinal area. My suspicion is low for an infectious process at this point of time and patient is on IV fluids and patient is on inpatient chemotherapy medications. REVIEW OF SYSTEMS: CARDIOVASCULAR: No chest pain, no orthopnea, no PND, no palpitations. PULMONARY: Denied any shortness of breath. No cough or hemoptysis. GASTROINTESTINAL: No diarrhea, nausea or vomiting. No abdominal pain. Normoactive bowel sounds. NEUROLOGIC: No headaches, no weakness, no numbness. Medications were reviewed. PHYSICAL EXAMINATION: Temperature is 96.9, pulse of 57, respiratory rate of 18, blood pressure is 156/93, saturating at 99% on room air. GENERAL: The patient is alert and oriented x3, not in any acute distress. Well developed, well nourished. HEENT: Pupils are round and equally reacting to light. EOMI. No scleral icterus. No conjunctival pallor. Normocephalic, atraumatic. No pharyngeal erythema. No thyromegaly. CARDIOVASCULAR: S1 and S2 present. No murmurs, rubs, or gallops. PULMONARY: Chest is clear to auscultation, no wheezing or crackles. ABDOMEN: Soft, nontender, nondistended, normoactive bowel sounds. No palpable organomegaly. MUSCULOSKELETAL: No joint swelling or deformity. EXTREMITIES: No cyanosis, clubbing, or pedal edema. NEUROLOGICAL: Gross neurological examination did not reveal any focal deficits. SKIN: No rashes. LYMPH NODE EXAM: Decreased size of matted lymph nodes in the left cervical area as well as right inguinal area. ASSESSMENT AND PLAN: 1. Hodgkin's lymphoma with significant lymphadenopathy immediately after discontinuation of chemotherapy last time and patient is undergoing chemotherapy again. 2. Fever, probably secondary to chemo. 3. Right ( ) swelling secondary to lymphadenopathy again. Plan is to continue with the chemotherapy, IV fluids. We will continue to follow patient with you. Patient's blood pressure is minimally elevated. I do not recommend any medications. Patient's blood pressure is definitely fluctuating and as a result of pain. I do not recommend any medications for fluctuations in blood pressure. I do not recommend any p.r.n. antihypertensives either.
--- NOTE | 2016-10-12 15:51 | P.PN ---
Subjective Principal diagnosis: Admit for CIVI, diffuse large B cell/follicular lymphoma Pt seen in followup, continues to tolerate treatment well, no fevers, oral irritation, nausea, vomiting, abd pain or bloating, suprapubic and bilateral groin pain persists, pain meds are not always adequate, continues to ambulate frequently. Objective - Vital Signs Vital signs: Vital Signs Temp 97.6 F 10/12/16 13:49 Pulse 62 10/12/16 13:49 Resp 16 10/12/16 13:49 BP 157/93 10/12/16 13:49 Pulse Ox 98 10/12/16 13:49 Intake & Output 10/11/16 10/12/16 10/12/16 18:59 06:59 18:59 Intake Total 1585.6 Output Total 1100 1200 Balance 485.6 -1200 Intake: IV 995.6 DOXOrubicin HCL 18 mg In 36 Sodium Chloride 0.9% 100 ml @ 4.542 mls/hr IV DAILY@1400 [facility] Rx#: [id number] Etoposide 90 mg In Sodium 91.2 Chloride 0.9% 250 ml @ 10.604 mls/hr IV DAILY@ 1400 [facility] Rx#:[id number] Piperacillin-Tazobactam 3 50 .375 gm In Dextrose/Water 1 50ml.bag @ 12.5 mls/hr IVPB Q8HR [facility] Rx#: [id number] Sodium Chloride 0.9% 1, 800 000 ml @ 150 mls/hr IV . Q6H40M [facility] Rx#:[id number] vinCRIStine SULFATE 0.7 18.4 mg In Sodium Chloride 0.9 % 50 ml @ 2.113 mls/hr IV DAILY@1400 [facility] Rx#: [id number] Oral 590 Output: Urine 1100 1200 Other: Voiding Method Toilet Toilet Toilet Urinal Urinal # Voids 5 2 - Constitutional General appearance: Present: average body habitus, cooperative, no acute distress - EENT Eyes: Present: edentulous, PERRLA, normal appearance ENT: Present: normal oropharynx - Neck Details: left neck mass is barely palpable - Respiratory Respiratory: bilateral: CTA - Cardiovascular Heart sounds: normal: S1, S2 Abnormal Heart Sounds: Present: systolic murmur (>at LSB 3ICS) - Peripheral edema leg Peripheral Edema: bilateral: None - Gastrointestinal General gastrointestinal: Present: normal bowel sounds, soft - Integumentary Integumentary: Present: normal - Neurologic Neurologic: Present: CNII-XII intact - Musculoskeletal Musculoskeletal: Present: strength equal bilaterally - Psychiatric Psychiatric: Present: A&O x's 3, appropriate affect, intact judgment & insight - Labs CBC & Chem 7: 10/12/16 06:10 10/12/16 06:10 Labs: Abnormal Lab Results - Last 24 Hours (Table) 10/11/16 10/12/16 10/12/16 Range/Units 22:30 06:10 06:10 RBC 3.05 L (4.30-5.90) m/uL Hgb 9.2 L (13.0-17.5) gm/dL Hct 27.9 L (39.0-53.0) % RDW 16.3 H (11.5-15.5) % Lymphocytes # 0.1 L (1.0-4.8) k/uL Carbon Dioxide 31 H (22-30) mmol/L Creatinine 0.60 L (0.66-1.25) mg/dL Glucose 139 H (74-99) mg/dL Total Protein 5.1 L (6.3-8.2) g/dL Albumin 3.2 L (3.5-5.0) g/dL Urine Glucose (UA) 1+ H (Negative) Assessment and Plan (1) Diffuse large B-cell lymphoma of extranodal site Narrative/Plan: Continue chemo as ordered, labs daily, supportive meds available. Status: Chronic (2) Testicular/scrotal pain Narrative/Plan: Urology and ID continue to follow Status: Acute (3) Left cervical lymphadenopathy Narrative/Plan: Smaller, softer, biopsy pending Status: Acute Plan: GI prophylaxis DVT prophylaxis with SCDs and early ambulation
[2016-10-12 16:41] LABS: Mis test requested (Non-blood) B Cell Flow Cyto
[2016-10-12] MEDS: ETOPOSIDE 90 MG in SODIUM CHLORIDE 0.9% 250 ML IV SCH ×2 (19:42→19:50)
[2016-10-12] MEDS: VINCRISTINE SULFATE IV SCH ×2 (19:42→19:50)
[2016-10-12] MEDS: SODIUM CHLORIDE 0.9% IV SCH ×4 (19:42→19:50)
[2016-10-12] MEDS: DOXORUBICIN HCL IV SCH ×2 (19:42→19:50)
[2016-10-12] MEDS: FAMOTIDINE 20 MG/2 ML VIAL IVP SCH (19:43)
[2016-10-12] MEDS: ONDANSETRON 16 MG in SODIUM CHLORIDE 0.9% 50 ML IVPB SCH (19:48)
[2016-10-13] MEDS: PIPERACILLIN-TAZOBACTAM 3.375 GM in DEXTROSE/WATER 1 50ML.BAG IVPB SCH ×3 (00:01→16:49)
[2016-10-13] MEDS: SODIUM CHLORIDE 0.9% 1,000 ML IV SCH ×4 (02:52→22:35)
[2016-10-13] MEDS: HYDROmorphone 1 MG/ML 1 ML SYRINGE IVP PRN ×7 (04:39→22:26)
[2016-10-13 07:03] LABS: Basophils % (A) 0 %; Eosinophils % (A) 0 %; HCT 28.5 % (39.0-53.0); HDW 3.33; Luc # (Auto) 0.01; Luc % (Auto) 0; Lymphocytes # (A) 0.1 k/uL (1.0-4.8); Lymphocytes % (A) 1 %; MCH 28.8 pg (25.0-35.0); MCHC 31.5 g/dL (31.0-37.0); MCV 91.5 fL (80.0-100.0); Mean Platelet Volume 6.8; Monocytes # (A) 0.2 k/uL (0-1.0); Monocytes % (A) 3 %; Neutrophils # (A) 6.2 k/uL (1.3-7.7); Neutrophils % (A) 96 %; RBC 3.12 m/uL (4.30-5.90); RDW 15.9 % (11.5-15.5); WBC 6.4 k/uL (3.8-10.6); WBC (Perox) 6.93
[2016-10-13] MEDS: predniSONE 50 MG TAB PO SCH ×2 (07:11→22:28)
[2016-10-13 07:25] LABS: ALT 196 U/L (21-72); AST 91 U/L (17-59); Alkaline Phosphatase 94 U/L (38-126); Anion Gap 10 mmol/L; Blood Urea Nitrogen 18 mg/dL (9-20); Calcium 8.5 mg/dL (8.4-10.2); Carbon Dioxide 31 mmol/L (22-30); Chloride 102 mmol/L (98-107); Glucose 145 mg/dL (74-99); Non-African American GFR(MDRD) >60 (>60 ml/min/1.73 sqM); Potassium 4.1 mmol/L (3.5-5.1); Sodium 143 mmol/L (137-145); Total Bilirubin 1.7 mg/dL (0.2-1.3); Total Protein 5.2 g/dL (6.3-8.2)
[2016-10-13] MEDS: SALT AND SODA MOUTHWASH 1,000 ML PO SCH ×4 (07:25→22:28)
--- NOTE | 2016-10-13 07:45 | P.PN ---
Subjective The patient continues to improve with both antibiotic and anti-neoplastic agents. Folliculitis is much improved. The mass in the testicle is also disappeared. The perineal nodules have diminished also. I will continue to follow Objective - Vital Signs Vital signs: Vital Signs Temp 97.4 F L 10/13/16 07:00 Pulse 52 L 10/13/16 07:00 Resp 20 10/13/16 07:00 BP 155/83 10/13/16 07:00 Pulse Ox 97 10/13/16 07:00 Intake & Output 10/12/16 10/13/16 10/13/16 18:59 06:59 18:59 Intake Total 2758.4 Output Total 1200 600 Balance -1200 2158.4 Intake: IV 2168.4 DOXOrubicin HCL 18 mg In 54 Sodium Chloride 0.9% 100 ml @ 4.542 mls/hr IV DAILY@1400 [facility] Rx#: [id number] Etoposide 90 mg In Sodium 136.8 Chloride 0.9% 250 ml @ 10.604 mls/hr IV DAILY@ 1400 [facility] Rx#:[id number] Ondansetron 16 mg In 50 Sodium Chloride 0.9% 50 ml @ 100 mls/hr IVPB DAILY [facility] Rx#:[id number] Piperacillin-Tazobactam 3 100 .375 gm In Dextrose/Water 1 50ml.bag @ 12.5 mls/hr IVPB Q8HR [facility] Rx#: [id number] Sodium Chloride 0.9% 1, 1800 000 ml @ 150 mls/hr IV . Q6H40M [facility] Rx#:[id number] vinCRIStine SULFATE 0.7 27.6 mg In Sodium Chloride 0.9 % 50 ml @ 2.113 mls/hr IV DAILY@1400 [facility] Rx#: [id number] Oral 590 Output: Urine 1200 600 Other: Voiding Method Toilet Toilet Toilet Urinal Urinal Urinal - Labs CBC & Chem 7: 10/13/16 06:10 10/13/16 06:10 Labs: Abnormal Lab Results - Last 24 Hours (Table) 10/13/16 10/13/16 Range/Units 06:10 06:10 RBC 3.12 L (4.30-5.90) m/uL Hgb 9.0 L (13.0-17.5) gm/dL Hct 28.5 L (39.0-53.0) % RDW 15.9 H (11.5-15.5) % Lymphocytes # 0.1 L (1.0-4.8) k/uL Carbon Dioxide 31 H (22-30) mmol/L Glucose 145 H (74-99) mg/dL Total Bilirubin 1.7 H (0.2-1.3) mg/dL AST 91 H (17-59) U/L ALT 196 H (21-72) U/L Total Protein 5.2 L (6.3-8.2) g/dL Albumin 3.1 L (3.5-5.0) g/dL Microbiology - Last 24 Hours (Table) 10/11/16 22:30 Blood Culture - Preliminary Blood No Growth after 24 hours
--- NOTE | 2016-10-13 09:10 | PN ---
DATE OF SERVICE: 10/12/2016 Reason for followup is left groin lymphadenopathy and abnormal right testicle with question of related to malignancy versus infection. INTERVAL HISTORY: The patient is afebrile. He is not having any pain in the right groin area though. There is no skin breakdown. There is no drainage. The patient denies having any chest pain or shortness of breath. No cough. No abdominal pain. On examination, blood pressure 151/97 with a pulse of 62, temperature 98. He is 97% on room air. General description is a middle-age male up in the bed in no distress. RESPIRATORY SYSTEM: Unlabored breathing. Clear to auscultation, anteriorly. HEART: S1, S2. Regular rate and rhythm. ABDOMEN: Soft, no tenderness. LABS: Hemoglobin 9.2, white count 7.3 with BUN of 16, creatinine 0.60. UA has been negative. DIAGNOSTIC IMPRESSION AND PLAN: Patient with right inguinal lymphadenopathy with abnormality seen on the right testicle on the ultrasound with question of malignancy versus infection. Clinically the patient is not having any high grade fever especially in the hospital. His white count was slightly elevated yesterday, though it is normal now and his culture remains to be negative. He is currently on empiric Zosyn that will be continued for now. However, if all the cultures are negative, we will switch antibiotics to an oral for the next 24 to 48 hours. Continue supportive care. YAMINI
--- NOTE | 2016-10-13 10:13 | P.PN ---
Subjective Principal diagnosis: Admit for CIVI, diffuse large B cell/follicular lymphoma Pt continues to tolerate treatment well, no fevers, BP is noted to be elevated especially when pain is not well controlled, denies oral irritation, nausea, vomiting, abd pain or bloating, suprapubic and bilateral groin pain persists, worse after ambulation. Denies bowel or bladder changes, dark urine or jaundice. Objective - Vital Signs Vital signs: Vital Signs Temp 97.4 F L 10/13/16 07:00 Pulse 52 L 10/13/16 07:00 Resp 20 10/13/16 07:00 BP 155/83 10/13/16 07:00 Pulse Ox 97 10/13/16 07:00 Intake & Output 10/12/16 10/13/16 10/13/16 18:59 06:59 18:59 Intake Total 2758.4 Output Total 1200 600 Balance -1200 2158.4 Intake: IV 2168.4 DOXOrubicin HCL 18 mg In 54 Sodium Chloride 0.9% 100 ml @ 4.542 mls/hr IV DAILY@1400 [facility] Rx#: [id number] Etoposide 90 mg In Sodium 136.8 Chloride 0.9% 250 ml @ 10.604 mls/hr IV DAILY@ 1400 [facility] Rx#:[id number] Ondansetron 16 mg In 50 Sodium Chloride 0.9% 50 ml @ 100 mls/hr IVPB DAILY [facility] Rx#:[id number] Piperacillin-Tazobactam 3 100 .375 gm In Dextrose/Water 1 50ml.bag @ 12.5 mls/hr IVPB Q8HR [facility] Rx#: [id number] Sodium Chloride 0.9% 1, 1800 000 ml @ 150 mls/hr IV . Q6H40M [facility] Rx#:[id number] vinCRIStine SULFATE 0.7 27.6 mg In Sodium Chloride 0.9 % 50 ml @ 2.113 mls/hr IV DAILY@1400 [facility] Rx#: [id number] Oral 590 Output: Urine 1200 600 Other: Voiding Method Toilet Toilet Toilet Urinal Urinal Urinal - Constitutional General appearance: Present: average body habitus, cooperative, no acute distress - EENT ENT: Present: normal oropharynx - Neck Details: left anterior cervical lymph node is not palpable today - Respiratory Respiratory: bilateral: CTA - Cardiovascular Heart sounds: normal: S1, S2 - Peripheral edema leg Peripheral Edema: bilateral: None - Gastrointestinal General gastrointestinal: Present: normal bowel sounds, soft. Absent: absent bowel sounds, decreased bowel sounds, distended, hepatomegaly, hyperactive bowel sounds, organomegaly, rigid, scaphoid, splenomegaly, tenderness, umbilical hernia, ventral hernia - Neurologic Neurologic: Present: CNII-XII intact - Musculoskeletal Musculoskeletal: Present: strength equal bilaterally - Psychiatric Psychiatric: Present: A&O x's 3, appropriate affect, intact judgment & insight - Labs CBC & Chem 7: 10/13/16 06:10 10/13/16 10:00 Labs: Abnormal Lab Results - Last 24 Hours (Table) 10/13/16 10/13/16 Range/Units 06:10 06:10 RBC 3.12 L (4.30-5.90) m/uL Hgb 9.0 L (13.0-17.5) gm/dL Hct 28.5 L (39.0-53.0) % RDW 15.9 H (11.5-15.5) % Lymphocytes # 0.1 L (1.0-4.8) k/uL Carbon Dioxide 31 H (22-30) mmol/L Glucose 145 H (74-99) mg/dL Total Bilirubin 1.7 H (0.2-1.3) mg/dL AST 91 H (17-59) U/L ALT 196 H (21-72) U/L Total Protein 5.2 L (6.3-8.2) g/dL Albumin 3.1 L (3.5-5.0) g/dL Microbiology - Last 24 Hours (Table) 10/11/16 22:30 Blood Culture - Preliminary Blood No Growth after 24 hours Assessment and Plan (1) Diffuse large B-cell lymphoma of extranodal site Narrative/Plan: Cont chemotherapy without adjustment. He will be completing cycle 3 tonight sometime, discharge in AM after labs reviewed and pt examined. We went over the results from lymph node biopsy. There is nothing new to report at this time. Status: Chronic (2) Testicular/scrotal pain Narrative/Plan: Urology and ID continue to follow, pain is better but not resolved Status: Acute (3) Left cervical lymphadenopathy Narrative/Plan: The lymph node is not palpable today Status: Acute (4) Elevated LFTs Narrative/Plan: Lab has been redrawn, will look for results and order further testing/treatment as indicated Status: Acute Plan: GI prophylaxis DVT prophylaxis with SCDs and early ambulation
[2016-10-13 10:31] LABS: Anion Gap 7 mmol/L; Blood Urea Nitrogen 19 mg/dL (9-20); Calcium 8.8 mg/dL (8.4-10.2); Carbon Dioxide 32 mmol/L (22-30); Chloride 102 mmol/L (98-107); Glucose 156 mg/dL (74-99); Non-African American GFR(MDRD) >60 (>60 ml/min/1.73 sqM); Potassium 3.9 mmol/L (3.5-5.1); Sodium 141 mmol/L (137-145)
[2016-10-13 10:52] LABS: ALT 279 U/L (21-72); AST 211 U/L (17-59); Alkaline Phosphatase 99 U/L (38-126); Total Bilirubin 2.4 mg/dL (0.2-1.3); Total Protein 5.6 g/dL (6.3-8.2)
[2016-10-13] MEDS ORDERED: SODIUM CHLORIDE 0.9% IV ONE ×2 (14:00→17:00)
[2016-10-13] MEDS ORDERED: CYCLOPHOSPHAMIDE IV ONE ×2 (14:00→17:00)
--- NOTE | 2016-10-13 15:48 | US ---
EXAMINATION TYPE: US liver DATE OF EXAM: 10/13/2016 3:31 PM COMPARISON: 08/14/2016 CLINICAL HISTORY: elevated LFTs; h/o lymphoma, on chemo. EXAM MEASUREMENTS: Liver Length: 15.9 cm Gallbladder Wall: 0.5 cm CBD: 0.6 cm Right Kidney: 11.7 x 6.0 x 5.9 cm TECHNOLOGIST IMPRESSION: Pancreas: Pancreas limited by overlying bowel gas. Liver: no gross abnormality Gallbladder: contracted, thick walled gb, could not assess for stones. Evidence for sonographic Etienne's sign: yes CBD: upper limits of normal Right Kidney: no cyst/solid mass, no hydronpehrosis IMPRESSION: 1. Gallbladder is contracted which limits evaluation. Wall thickening may be secondary to gallbladder contraction. 2. Limited pancreas due to overlying bowel gas. Normal Values: Liver Length: < 16cm wnl, 17-18cm upper limits, >18cm enlarged Renal Length = 9 - 12cm GB Wall: < 0.3cm CBD: < 0.6cm or < 1.0cm post cholecystectomy
--- NOTE | 2016-10-13 18:58 | PN ---
DATE OF SERVICE: 10/13/2016 This 51-year-old gentleman who was admitted for chemotherapy for lymphoma is being closely monitored at this time. No chest pain. No palpitation. No fever. The patient had elevated LFTs today. The patient was suspected to have hepatic involvement previously. He also had a fever, present on admission. There is no history of headache, loss of consciousness, seizures. PAST MEDICAL HISTORY: 1. History of lymphoma. 2. History of hypertension. 3. History of DJD. REVIEW OF SYSTEMS: CARDIOVASCULAR SYSTEM: No angina, palpitations. RESPIRATORY SYSTEM: As mentioned earlier. GI: As mentioned earlier. : No dysuria. NERVOUS SYSTEM: No numbness or weakness. Current medications are reviewed and include: 1. Cepacol p.r.n. 2. Cyclophosphamide 250 mL once. 3. Dilaudid 1 mg q.3 hours p.r.n. 4. Zofran 4 mg q.6 p.r.n. 5. Zosyn 3.375 IV q.6 p.r.n. 6. Prednisone 100 p.o. p.o. b.i.d. 7. Sodium bicarbonate 5 mL p.o. q.i.d. PHYSICAL EXAMINATION: Patient is alert and oriented x3. Pulse is 58, blood pressure 150/70, respiration 20, temperature 98.2, pulse ox 92% on room air. HEENT: Conjunctivae normal. NECK: Lymphadenopathy present. CARDIOVASCULAR SYSTEM: S1, S2 muffled. No S3. No S4. Ejection systolic murmur. RESPIRATORY SYSTEM: Breath sounds diminished at the bases. Scattered rhonchi and crackles. ABDOMEN: Soft. Non-tender. No mass palpable. LEGS: No edema. No swelling. NERVOUS SYSTEM: No focal deficit. Labs at this time show WBC 6.2, hemoglobin 9. Total bilirubin is 2.4. AST is 211. ALT is 279. Albumin is 3.4. ASSESSMENT: 1. Diffuse large B-cell lymphoma, extranodal site, with non-Hodgkin's lymphoma, on chemotherapy, scrotal pain. 2. Right inguinal pain and lymphadenopathy. 3. Left cervical lymphadenopathy. 4. Elevated bilirubin, AST, ALT; possible hepatitis. 5. Mild hypoalbuminemia. 6. Increased carbon dioxide. 7. Anemia, normocytic; anemia of chronic disease secondary to lymphoma. 8. History of hypertension. 9. History of degenerative joint disease. 10. History of recurrent lymphoma. 11. Remote history of nicotine dependence. RECOMMENDATIONS AND DISCUSSION: In this 51-year-old gentleman who presented with multiple complex medical issues, we will monitor the patient closely, continue with the current medications, continue with symptomatic treatment. Otherwise, continue with pain medications. Follow-up labs, especially regarding LFT. Avoid nephrotoxic medication, including Tylenol. Guarded prognosis. Continue with the chemotherapy. Further recommendations to follow. MTDD
[2016-10-13] MEDS: FAMOTIDINE 20 MG/2 ML VIAL IVP SCH (19:25)
[2016-10-13] MEDS: ONDANSETRON 16 MG in SODIUM CHLORIDE 0.9% 50 ML IVPB SCH (19:25)
[2016-10-14] MEDS: PIPERACILLIN-TAZOBACTAM 3.375 GM in DEXTROSE/WATER 1 50ML.BAG IVPB SCH ×4 (00:18→23:24)
[2016-10-14] MEDS: HYDROmorphone 1 MG/ML 1 ML SYRINGE IVP PRN ×4 (00:55→09:15)
[2016-10-14] MEDS: SODIUM CHLORIDE 0.9% 1,000 ML IV SCH ×3 (05:48→18:07)
[2016-10-14 06:24] LABS: Basophils % (A) 0 %; CH 29.8; Eosinophils % (A) 0 %; HCT 27.9 % (39.0-53.0); HDW 3.29; HGB 9.2 gm/dL (13.0-17.5); Luc # (Auto) 0.01; Luc % (Auto) 0; Lymphocytes # (A) 0.1 k/uL (1.0-4.8); Lymphocytes % (A) 1 %; MCH 29.9 pg (25.0-35.0); MCHC 32.9 g/dL (31.0-37.0); MCV 90.8 fL (80.0-100.0); Mean Platelet Volume 6.3; Monocytes # (A) 0.1 k/uL (0-1.0); Monocytes % (A) 1 %; Neutrophils # (A) 4.5 k/uL (1.3-7.7); Neutrophils % (A) 97 %; RBC 3.07 m/uL (4.30-5.90); RDW 15.5 % (11.5-15.5); WBC 4.6 k/uL (3.8-10.6); WBC (Perox) 5.01
[2016-10-14 06:50] LABS: ALT 254 U/L (21-72); AST 85 U/L (17-59); Alkaline Phosphatase 107 U/L (38-126); Anion Gap 6 mmol/L; Blood Urea Nitrogen 15 mg/dL (9-20); Calcium 8.3 mg/dL (8.4-10.2); Carbon Dioxide 30 mmol/L (22-30); Chloride 102 mmol/L (98-107); Glucose 173 mg/dL (74-99); Non-African American GFR(MDRD) >60 (>60 ml/min/1.73 sqM); Potassium 3.8 mmol/L (3.5-5.1); Sodium 138 mmol/L (137-145); Total Bilirubin 1.2 mg/dL (0.2-1.3); Total Protein 4.7 g/dL (6.3-8.2)
[2016-10-14] MEDS: SALT AND SODA MOUTHWASH 1,000 ML PO SCH ×4 (07:37→21:16)
--- NOTE | 2016-10-14 10:20 | PN ---
DATE OF SERVICE: 10/13/2016 Reason for follow-up is: Right inguinal lymphadenopathy with question of malignancy less likely an abscess. INTERVAL HISTORY: The patient is afebrile. Overall the pain to the groin is currently controlled with pain medication. Denies having any chest pain or shortness of breath, no cough. No abdominal pain or any diarrhea. On examination, blood pressure is 149/84 with a pulse of 52, temperature 98.2. He is 97% on room air. General description is a middle-age male lying in bed in no distress. RESPIRATORY SYSTEM: Unlabored breathing. Clear to auscultation anteriorly. HEART: S1, S2. Regular rate and rhythm. ABDOMEN: Soft, no tenderness. Right groin the swelling has slightly decreased. No redness. The testicular swelling about the same. No redness. LABS: Hemoglobin is 9.5, white count 6.4. BUN of 19, creatinine 0.70. Blood culture negative. Urine was negative. DIAGNOSTIC IMPRESSION AND PLAN: Patient with right inguinal lymphadenopathy with abnormality seen on the testicular ultrasound with question secondery to his underlying Hodgkin's lymphoma or an abscess, clinically not behaving as an abscess but cannot be entirely excluded. Urology is following the patient and not recommending surgical intervention at this point. His cultures are negative for any resistant pathogen, currently on Zosyn. The patient is stable for discharge tomorrow from the oncology can be given a Cipro 500 mg twice a day for another 10 days with close outpatient follow-up. MTDD
--- NOTE | 2016-10-14 10:36 | P.PN ---
Subjective Principal diagnosis: Diffuse large B-cell non-Hodgkin's lymphoma, admitted for high dose infusional chemotherapy The patient has completed chemotherapy last night. He overall tolerated treatment well. He continues to have pain in the right lower quadrant and right inguinal region, requiring Dilaudid on a fairly regular basis. Objective - Vital Signs Vital signs: Vital Signs Temp 97.2 F L 10/14/16 08:27 Pulse 61 10/14/16 08:27 Resp 20 10/14/16 08:27 BP 143/86 10/14/16 08:27 Pulse Ox 99 10/14/16 08:27 Intake & Output 10/13/16 10/14/16 10/14/16 18:59 06:59 18:59 Intake Total 1395.6 480 240 Output Total 550 1400 Balance 845.6 -920 240 Intake: IV 1395.6 DOXOrubicin HCL 18 mg In 36 Sodium Chloride 0.9% 100 ml @ 4.542 mls/hr IV DAILY@1400 [facility] Rx#: [id number] Etoposide 90 mg In Sodium 91.2 Chloride 0.9% 250 ml @ 10.604 mls/hr IV DAILY@ 1400 [facility] Rx#:[id number] Piperacillin-Tazobactam 3 50 .375 gm In Dextrose/Water 1 50ml.bag @ 12.5 mls/hr IVPB Q8HR [facility] Rx#: [id number] Sodium Chloride 0.9% 1, 1200 000 ml @ 150 mls/hr IV . Q6H40M [facility] Rx#:[id number] vinCRIStine SULFATE 0.7 18.4 mg In Sodium Chloride 0.9 % 50 ml @ 2.113 mls/hr IV DAILY@1400 [facility] Rx#: [id number] Oral 480 240 Output: Urine 550 1400 Other: Voiding Method Toilet Toilet Urinal Urinal - Constitutional General appearance: Present: no acute distress - EENT Eyes: Present: EOMI, PERRLA ENT: Present: hearing grossly normal, normal oropharynx - Respiratory Respiratory: bilateral: CTA - Cardiovascular Rhythm: regular Heart sounds: normal: S1, S2 - Gastrointestinal General gastrointestinal: Present: normal bowel sounds, soft - Genitourinary Genitourinary Comment(s): Bilateral scattered inguinal nodes, none larger than 1 cm. Firm nodule, between 5 mm to 1 cm noted in the right epididymal region. Small, 3-4 mm nodule in the left perineal region posterior to left testicle Male genitourinary: right inguinal lymphadenopathy - Integumentary Integumentary: Present: normal - Neurologic Neurologic: Present: CNII-XII intact - Musculoskeletal Musculoskeletal: Present: strength equal bilaterally - Psychiatric Psychiatric: Present: A&O x's 3, appropriate affect - Labs CBC & Chem 7: 10/14/16 05:53 10/14/16 05:53 Labs: Abnormal Lab Results - Last 24 Hours (Table) 10/13/16 10/14/16 10/14/16 Range/Units 10:00 05:53 05:53 RBC 3.07 L (4.30-5.90) m/uL Hgb 9.2 L (13.0-17.5) gm/dL Hct 27.9 L (39.0-53.0) % Lymphocytes # 0.1 L (1.0-4.8) k/uL Carbon Dioxide 32 H (22-30) mmol/L Creatinine 0.60 L (0.66-1.25) mg/dL Glucose 156 H 173 H (74-99) mg/dL Calcium 8.3 L (8.4-10.2) mg/dL Total Bilirubin 2.4 H (0.2-1.3) mg/dL AST 211 H 85 H (17-59) U/L ALT 279 H 254 H (21-72) U/L Total Protein 5.6 L 4.7 L (6.3-8.2) g/dL Albumin 3.4 L 2.9 L (3.5-5.0) g/dL Microbiology - Last 24 Hours (Table) 10/11/16 22:30 Blood Culture - Preliminary Blood No Growth after 48 hours Assessment and Plan (1) Diffuse large B-cell lymphoma of lymph nodes of multiple regions Narrative/Plan: The patient has completed 3 cycles of R- EPOCH. He has tolerated chemotherapy itself quite well. Labs were reviewed. Hemoglobin is in the 9 range, which is acceptable. White cells and platelets are normal. CT scans after cycle 2 showed a marked response. The patient did develop new left cervical lymph node, after cycle 2 with biopsy showing persistent diffuse large B-cell lymphoma. That node has interestingly, disappeared. This presentation this time, also included erythema and swelling in the bilateral inguinal regions, and increased right lower quadrant and right inguinal pain. At this point, based on his clinical presentation, and review of his imaging including testicular ultrasound, I believe that this presentation related to early progression of his lymphoma at these sites. This could have occurred, because of delay between cycles 2 and 3 which was at the patient's own request. He has had marked improvement of his symptoms as he has progressed through chemotherapy during this cycle. I will therefore do a PET scan as an outpatient after this cycle, to assess response more accurately. Status: Acute (2) Elevated LFTs Narrative/Plan: The liver ultrasound did not show any significant findings. Liver enzymes are showing a downward trend. This is most likely due to chemotherapy effect on the liver and a similar phenomenon was seen during his previous cycle. No acute intervention is required. We will follow as an outpatient. Status: Acute (3) Right lower quadrant pain Narrative/Plan: This is still fairly significant, and the patient is requiring Dilaudid regularly. He was taking Percocet at home. Since my clinical impression is that his pain is related to lymphoma progression, I expect improvement, given clinical improvement in his symptoms with chemotherapy and antibiotics. I will therefore start him on OxyContin, and switch him back to Percocet when necessary. Dilaudid will be discontinued. If the patient responds well to this regimen, we can plan on discharging him home. Status: Acute (4) Folliculitis Narrative/Plan: The patient's bilateral inguinal, and perineal symptoms were felt, at least partially be due to folliculitis/cellulitis. This could've been due to recurrent lymphatic obstruction from flareup of his lymphoma. As noted above, the patient is clinically much improved on exam, with the chemotherapy and antibiotics. He is currently on IV Zosyn. I will discuss with Dr. Perdomo about changing him over to by mouth antibiotics. Status: Acute
[2016-10-14] MEDS ORDERED: DOCUSATE 100 MG CAP PO SCH (10:45)
[2016-10-14] MEDS: oxyCODONE ER 20 MG TAB.ER.12H PO SCH ×2 (11:10→21:15)
[2016-10-14] MEDS: oxyCODONE-APAP 10-325MG 1 EACH TAB PO PRN ×3 (11:11→22:39)
--- NOTE | 2016-10-14 19:34 | PN ---
This 51-year-old gentleman who was admitted with chemotherapy for lymphoma is being closely monitored. No chest pain, no palpitation, no fever. The pain control is being managed. PHYSICAL EXAMINATION: Alert and oriented x3. Pulse is 60, blood pressure is 146/77, respirations 16, temperature 98.4, pulse ox 98% on room air. HEENT: Conjunctivae normal. NECK: Lymphadenopathy present. CARDIOVASCULAR SYSTEM: S1, S2 muffled. No S3. No S4. Ejection systolic murmur. RESPIRATORY SYSTEM: Breath sounds diminished at the bases. Scattered rhonchi, no crackles. ABDOMEN: Soft. Mild diffuse tenderness in the right lower quadrant. LEGS: No edema. No swelling. NERVOUS SYSTEM: No focal deficit. Labs show WBC 4.2, hemoglobin 9.2 LFTs are noted and stable at this time. ASSESSMENT: 1. Diffuse large B-cell lymphoma, extranodal site, with non-Hodgkin's lymphoma, on chemotherapy, and right inguinal area and scrotal pain. 2. Right inguinal pain and lymphadenopathy. 3. Left cervical lymphadenopathy. 4. Elevated bilirubin, AST, ALT; possible hepatitis. 5. Mild hypoalbuminemia. 6. Increased CO2. 7. Anemia, normocytic; anemia of chronic disease secondary to lymphoma. 8. History of hypertension. 9. History of DJD. 10. History of recurrent lymphoma. 11. Remote history of nicotine dependence. RECOMMENDATIONS AND DISCUSSION: Continue the patient on symptomatic treatment, repeat labs, pain medications, pain management. Guarded prognosis. Further recommendations to follow.
[2016-10-15] MEDS: oxyCODONE-APAP 10-325MG 1 EACH TAB PO PRN ×2 (03:51→10:28)
[2016-10-15] MEDS: SODIUM CHLORIDE 0.9% 1,000 ML IV SCH ×2 (03:51→09:25)
[2016-10-15] MEDS: ONDANSETRON 4 MG/2 ML VIAL IVP PRN (05:44)
[2016-10-15 06:42] LABS: Basophils % (A) 0 %; CH 29.8; CHCM 32.7; Eosinophils # (A) 0.1 k/uL (0-0.7); Eosinophils % (A) 2 %; HCT 26.7 % (39.0-53.0); HDW 3.25; HGB 8.7 gm/dL (13.0-17.5); Hypochromasia Slight; Luc # (Auto) 0.02; Luc % (Auto) 1; Lymphocytes # (A) 0.2 k/uL (1.0-4.8); Lymphocytes % (A) 4 %; MCH 29.9 pg (25.0-35.0); MCHC 32.6 g/dL (31.0-37.0); MCV 91.6 fL (80.0-100.0); Mean Platelet Volume 6.7; Monocytes % (A) 1 %; Neutrophils % (A) 93 %; RBC 2.91 m/uL (4.30-5.90); RDW 15.6 % (11.5-15.5); WBC 5.4 k/uL (3.8-10.6); WBC (Perox) 5.67
[2016-10-15 06:50] LABS: ALT 210 U/L (21-72); AST 66 U/L (17-59); Alkaline Phosphatase 80 U/L (38-126); Anion Gap 5 mmol/L; Blood Urea Nitrogen 14 mg/dL (9-20); Carbon Dioxide 29 mmol/L (22-30); Chloride 105 mmol/L (98-107); Glucose 99 mg/dL (74-99); Non-African American GFR(MDRD) >60 (>60 ml/min/1.73 sqM); Potassium 3.4 mmol/L (3.5-5.1); Sodium 139 mmol/L (137-145); Total Bilirubin 1.7 mg/dL (0.2-1.3); Total Protein 4.3 g/dL (6.3-8.2)
[2016-10-15 07:45] VITALS: BP 144/74; PULSE 60; RESP 16; TEMP 97.6
[2016-10-15] MEDS: SALT AND SODA MOUTHWASH 1,000 ML PO SCH ×2 (08:05→11:32)
[2016-10-15] MEDS: oxyCODONE ER 20 MG TAB.ER.12H PO SCH (08:05)
[2016-10-15] MEDS: PIPERACILLIN-TAZOBACTAM 3.375 GM in DEXTROSE/WATER 1 50ML.BAG IVPB SCH (08:06)
[2016-10-15] MEDS ORDERED: POTASSIUM CHLORIDE ER 20 MEQ TAB.ER PO STA (10:56)
[2016-10-15] MEDS ORDERED: oxyCODONE-APAP 10-325MG 1 EACH TAB PO PRN (12:22)
[2016-10-15] MEDS ORDERED: POLYETHYLENE GLYCOL 3350 17 GM POWD.PACK PO PRN (12:22)
[2016-10-15] MEDS ORDERED: PROCHLORPERAZINE 10 MG TAB PO PRN (12:22)
[2016-10-15] MEDS ORDERED: NON-FORMULARY DRUG (Lactose-Reduced Food [Boost] 237 ML) PO SCH (12:30)
--- NOTE | 2016-10-15 12:40 | P.DS ---
Providers Date of admission: 10/09/16 08:46 Expected date of discharge: 10/15/16 Attending physician: Jerrod Stacy Consults: 10/09/16 14:50 Consult Physician Routine Consulting Provider: Paco Darling Consult Reason/Comments: medical management Do you want consulting provider notified?: Already Contacted 10/09/16 15:15 Consult Physician Urgent Consulting Provider: Claude Perdomo Consult Reason/Comments: left groin redness, tenderness Do you want consulting provider notified?: Already Contacted 10/10/16 11:06 Consult Physician Routine Consulting Provider: Anton Good Consult Reason/Comments: right testicle mass Do you want consulting provider notified?: Already Contacted Primary care physician: Stated None - Discharge Diagnosis(es) (1) Diffuse large B-cell lymphoma of lymph nodes of multiple regions Current Visit: Yes Status: Acute (2) Elevated LFTs Current Visit: Yes Status: Acute Priority: High (3) Right lower quadrant pain Current Visit: No Status: Acute (4) Folliculitis Current Visit: Yes Status: Acute Hospital Course: The patient is a 51-year-old gentleman well known to our service. He had initially presented in 2013 with diagnosis of a low-grade B-cell lymphoma. He was on observation until the spring when he developed progression. At that time was started on bendamustine and Rituxan, with a good response. He subsequently presented in 06/30, with a massive right-sided abdominal mass and scrotal swelling. Biopsy was positive now for diffuse large B-cell lymphoma. He status post 2 cycles of infusional chemotherapy with R- EPOCH. CT scans done after 2 cycles showed an excellent partial response, in association with symptomatic improvement. Cycle 3 was did invade, and the patient's own request, because of the holidays. On admission at this time, he complained of recurrent swelling in both inguinal regions, as well as a new left neck node. He had a core biopsy of the left neck node revealing diffuse large B-cell lymphoma. Imaging, appear to indicate lesions in the testes and epididymis. He was also noted to have nodules in the perineum. He was seen by urology and infectious disease and is started on antibiotics. Chemotherapy was also started per protocol. The patient had to be placed on Dilaudid, because of severe pain in the right groin area. The patient tolerated the chemotherapy itself quite well. Liver enzyme elevations were noted, as had been seen with cycle #2. Repeat ultrasound of the liver was negative and the enzymes did start showing a downward trend once chemotherapy was completed. He experienced marked improvement in the groin and scrotal swelling as he progressed through chemotherapy, along with the antibiotic. The left neck node also resolved. It was felt that his clinical presentation regarding the left neck node, as well as the groin and scrotal symptoms, would due to progression of the lymphoma at these sites, possibly related to the delay in cycle #3. After completion of chemotherapy, given improvement in his other symptoms, as noted above, consider discharging patient home. Prior to discharge, Dilaudid was stopped and he was started on OxyContin ER, and placed back on Percocet 10-325 when necessary. Post discharge, he is to come to the office on 10/16/16 for Neulasta. A PET scan will be scheduled for the coming week and, followed by an office visit subsequently Pertinent Studies: Computed tomography scan of the abdomen and pelvis Ultrasound of the scrotum Procedures: High dose infusional chemotherapy Core biopsy of left neck node Patient Condition at Discharge: Fair Plan - Discharge Summary New Discharge Prescriptions: Levofloxacin [Levaquin] 500 mg PO DAILY #7 tab oxyCODONE ER [OxyCONTIN] 20 mg PO Q12HR #60 tab oxyCODONE-APAP 10-325MG [Percocet 10-325 mg] 1 tab PO Q6HR PRN #60 tab PRN Reason: Moderate To Severe Pain Discharge Medication List Polyethylene Glycol 3350 [Miralax] 17 gm PO DAILY PRN #0 powd.pack 08/21/16 [Rx] Docusate [Colace] 100 mg PO BID #100 capsule 09/13/16 [Rx] Lactose-Reduced Food [Boost] 237 ml PO TID 09/19/16 [History] oxyCODONE-APAP 10-325MG [Percocet 10-325 mg] 1 tab PO Q6HR PRN #20 tab 10/07/16 [Rx] Prochlorperazine [Compazine] 10 mg PO Q6H PRN 10/09/16 [History] Levofloxacin [Levaquin] 500 mg PO DAILY #7 tab 10/15/16 [Rx] oxyCODONE ER [OxyCONTIN] 20 mg PO Q12HR #60 tab 10/15/16 [Rx] oxyCODONE-APAP 10-325MG [Percocet 10-325 mg] 1 tab PO Q6HR PRN #60 tab 10/15/16 [Rx] Follow up Appointment(s)/Referral(s): Jerrod Stacy MD [STAFF PHYSICIAN] - As Needed (Patient to come to office on 10/16/16 for Neulasta. Garcia follow-up will be scheduled for the week after as an outpatient) Discharge Disposition: HOME SELF-CARE
[2016-10-15] MEDS ORDERED: DOCUSATE 100 MG CAP PO SCH (21:00)
--- NOTE | 2016-10-16 18:46 | PN ---
DATE OF SERVICE: 10/15/2016 This 51-year-old gentleman who was admitted after chemotherapy for lymphoma, has been closely monitored. No chest pain, no palpitations. No fever. On exam, alert and oriented x3. Pulse is 60, blood pressure 145/75, respirations 16, temperature 97.3, pulse ox 99% on room air. HEENT: Conjunctivae normal. NECK: No jugular venous distention. CARDIOVASCULAR: S1 and S2, muffled. RESPIRATORY: Breath sounds diminished at the bases. No rhonchi, no crackles. ABDOMEN: Soft, nontender. LEGS: No edema, no swelling. NERVOUS SYSTEM: No focal deficits. LABS: Hemoglobin 8.7, other labs are noted. ASSESSMENT: 1. Diffuse large B cell lymphoma extranodal site with a non-Hodgkin's lymphoma on chemotherapy. 2. Right inguinal and scrotal pain. 3. Right inguinal lymphadenopathy. 4. Left cervical lymphadenopathy. 5. Elevated bilirubin, AST, ALT; possible hepatitis. 6. Mild hypoalbuminemia. 7. Increased carbon dioxide. 8. Anemia, normocytic, anemia of chronic disease secondary to lymphoma. 9. History of hypertension. 10. History of degenerative joint disease. 11. History of recurrent lymphoma. 12. Remote history of nicotine dependence. 13. FULL CODE. RECOMMENDATIONS AND DISCUSSION: I recommend to continue the current medications, continue monitoring and symptomatic treatment. Otherwise at this time resume the home medications. follow with primary physician. The rest of the recommendations per Dr. Stacy. Further recommendations to follow.
== END 2016-10-15 13:45 | disposition home or self-care (01) | DRG 847 ==
LOC: 5ONC 10-09 08:46
PROVIDERS: ADMIT Internal Medicine Hematology & Oncology; ATTEND Internal Medicine Hematology & Oncology
DX: Z51.11 Encounter for antineoplastic chemotherapy (principal); C82.98 Follicular lymphoma, unspecified, lymph nodes of multiple sites; L03.314 Cellulitis of groin; I10 Essential (primary) hypertension; E88.09 Other disorders of plasma-protein metabolism, not elsewhere classified; D63.0 Anemia in neoplastic disease; L73.9 Follicular disorder, unspecified; M19.90 Unspecified osteoarthritis, unspecified site; N45.2 Orchitis; R50.2 Drug induced fever; T45.1X5A Adverse effect of antineoplastic and immunosuppressive drugs, initial encounter; R79.89 Other specified abnormal findings of blood chemistry; Z87.891 Personal history of nicotine dependence; Z82.49 Family history of ischemic heart disease and other diseases of the circulatory system
CPT/HCPCS: 21550; 76536; 76705; 76870; 76942; 80053; 81003; 85025; 85610; 87040; 88184; 88185; 88305; 88341; 88342; 93975

== ENCOUNTER → 2016-10-21 | Outpatient (CLI) | payer OTHER ==
--- NOTE | 2016-10-21 11:54 | PE ---
EXAMINATION TYPE: PET CT fusion skull to thigh DATE OF EXAM: 10/21/2016 10:42 AM CLINICAL HISTORY: Lymphoma progress study. Completed chemotherapy October 14. Initially diagnosed bi lateral neck and right groin per patient. TECHNIQUE: Following the intravenous administration of 13.4 mCi of F-18 FDG, whole body images are performed from the skull base to the midthigh. Images are reviewed on the computer in the coronal, a xial, and sagittal planes. Reconstructed rotating images are created on independent workstation and reviewed on the computer. A non-contrast CT is performed in conjunction with the PET scan. COMPARISON: CT CAP September 29, 2016. FINDINGS: SKULL BASE AND NECK: No suspicious hypermetabolic uptake is identified to suggest persistent neck ad enopathy. CHEST, MEDIASTINUM, AND HILAR REGION: No suspicious hypermetabolic uptake is identified suggest new t horacic adenopathy. ABDOMEN AND PELVIS: No suspicious hypermetabolic uptake is seen to suggest abdominal or pelvic adenop athy. Bilateral subcentimeter groin lymph nodes do not show abnormal hypermetabolic uptake on current study. OSSEOUS STRUCTURES: Mild diffuse uptake throughout osseous structures is felt to reflect product of t reatment change. OTHER CT: There is redemonstration of right internal jugular Mediport catheter with tip in SVC. Prominent left sided neck lymph nodes are felt present but no abnormal hypermetabolic uptake is seen, they're difficult to accurately measure without IV contrast. There is persistent prominent superior mediastinal measuring 1.8 x 0.9 cm on axial image 62 without a bnormal hypermetabolic uptake. There are additional scattered subcentimeter thoracic lymph nodes. There is background of mild emphysematous change with bilateral linear scarring and/or atelectasis in the bases. Multilevel spurring in the visualized spine is noted. There are left-sided pelvic phleboliths. IMPRESSION: No suspicious hypermetabolic uptake is identified to suggest active neoplasm or lymphoma. Persistent prominent left-sided neck and upper thoracic lymph nodes remain present. Findings are con sistent with positive or complete metabolic response.
== END | disposition home or self-care (01) ==
LOC: RADPETMAIN 08:02
PROVIDERS: ATTEND Internal Medicine Hematology & Oncology
DX: C85.90 Non-Hodgkin lymphoma, unspecified, unspecified site (principal)
CPT/HCPCS: 78815; A9552

== ENCOUNTER 2016-10-31 12:22 | Inpatient (IN) | payer OTHER ==
[~2016-10-31 12:22] MED LIST: DOXORUBICIN HCL IV SCH; ETOPOSIDE IV SCH; ONDANSETRON 16 MG in SODIUM CHLORIDE 0.9% 50 ML IVPB SCH; ONDANSETRON 4 MG/2 ML VIAL IVP PRN; RITUXIMAB IV ONE; SODIUM CHLORIDE 0.9% IV ONE; SODIUM CHLORIDE 0.9% IV SCH; VINCRISTINE SULFATE IV SCH; diphenhydrAMINE 50 MG/ML 1 ML VIAL IVP ONE; methylPREDNISolone SOD SUCCI 125 MG/2 ML VIAL IVP ONE
[2016-10-31 14:00] LABS: Basophils % (A) 1 %; CH 29.1; CHCM 32.3; Eosinophils % (A) 0 %; HCT 29.7 % (39.0-53.0); HDW 3.75; HGB 9.6 gm/dL (13.0-17.5); Hypochromasia Slight; Luc # (Auto) 0.15; Luc % (Auto) 4; Lymphocytes # (A) 0.2 k/uL (1.0-4.8); Lymphocytes % (A) 6 %; MCH 29.2 pg (25.0-35.0); MCHC 32.2 g/dL (31.0-37.0); MCV 90.5 fL (80.0-100.0); Mean Platelet Volume 6.7; Monocytes # (A) 0.4 k/uL (0-1.0); Monocytes % (A) 8 %; Neutrophils # (A) 3.5 k/uL (1.3-7.7); Neutrophils % (A) 82 %; Poikilocytosis Slight; RBC 3.28 m/uL (4.30-5.90); RDW 15.7 % (11.5-15.5); WBC 4.2 k/uL (3.8-10.6); WBC (Perox) 4.62
[2016-10-31] MEDS ORDERED: SODIUM CHLORIDE 0.9% IV ONE (14:00)
[2016-10-31] MEDS ORDERED: RITUXIMAB IV ONE (14:00)
--- NOTE | 2016-10-31 14:08 | XR ---
EXAMINATION TYPE: XR chest 2V DATE OF EXAM: 10/31/2016 2:04 PM COMPARISON: Prior chest x-ray 20 September 2016 HISTORY: Non-Hodgkin's Phoma, fever and chills TECHNIQUE: Frontal and lateral views of the chest are obtained. FINDINGS: There is no focal air space opacity, pleural effusion, or pneumothorax seen. The cardiac silhouette size is within normal limits. Port-A-Cath is stable. Interstitium appears somewhat promin ent. Overlying artifact noted. The osseous structures are intact. IMPRESSION: Some mild interstitial changes are suspected within the lungs. This is likely an interva l change. Correlate for interstitial pneumonia, edema
[2016-10-31] MEDS: FAMOTIDINE 20 MG/2 ML VIAL IVP SCH (14:18)
[2016-10-31] MEDS: predniSONE 50 MG TAB PO SCH ×2 (14:19→21:47)
[2016-10-31 14:20] LABS: ALT 33 U/L (21-72); AST 17 U/L (17-59); Alkaline Phosphatase 82 U/L (38-126); Anion Gap 8 mmol/L; Blood Urea Nitrogen 8 mg/dL (9-20); Calcium 8.7 mg/dL (8.4-10.2); Carbon Dioxide 31 mmol/L (22-30); Chloride 99 mmol/L (98-107); Glucose 108 mg/dL (74-99); Non-African American GFR(MDRD) >60 (>60 ml/min/1.73 sqM); Sodium 138 mmol/L (137-145); Total Bilirubin 0.8 mg/dL (0.2-1.3); Total Protein 5.1 g/dL (6.3-8.2)
[2016-10-31 14:35] LABS: Potassium 4.2 mmol/L (3.5-5.1)
[2016-10-31] MEDS ORDERED: MAGNESIUM HYDROXIDE 2,400 MG/10 ML CUP PO PRN ×2 (17:22→20:06)
[2016-10-31] MEDS ORDERED: LOPERAMIDE 2 MG CAP PO PRN (17:22)
[2016-10-31] MEDS ORDERED: DOCUSATE 100 MG CAP PO PRN (17:22)
[2016-10-31] MEDS ORDERED: HYDROcodone/APAP 10-325MG 1 EACH TAB PO PRN (17:25)
[2016-10-31] MEDS ORDERED: POLYETHYLENE GLYCOL 3350 17 GM POWD.PACK PO PRN (17:28)
[2016-10-31] MEDS ORDERED: PROCHLORPERAZINE 10 MG TAB PO PRN (17:28)
[2016-10-31] MEDS ORDERED: FLUTICASONE 50MCG/SPRAY NASAL 16GM EA NOSTRIL PRN (17:37)
[2016-10-31] MEDS: oxyCODONE ER 20 MG TAB.ER.12H PO SCH (17:54)
[2016-10-31] MEDS: DOXORUBICIN HCL IV SCH (18:34)
[2016-10-31] MEDS: VINCRISTINE SULFATE IV SCH (18:34)
[2016-10-31] MEDS: SODIUM CHLORIDE 0.9% IV SCH ×3 (18:34)
[2016-10-31] MEDS: ETOPOSIDE IV SCH (18:34)
[2016-10-31] MEDS: SALT AND SODA MOUTHWASH 1,000 ML PO SCH ×2 (19:09→21:48)
[2016-10-31] MEDS: SODIUM CHLORIDE 0.9% 1,000 ML IV SCH (19:09)
--- NOTE | 2016-10-31 19:18 | P.HPIM ---
History of Present Illness H&P Date: 10/31/16 Chief Complaint: CIVI chemotherpay Gopal is a very pleasant 51-year-old male patient who is very well- known to our service. He is being admitted for systemic treatment with R-EPOCH cycle #4. Patient was initially diagnosed in September 2014. He had an axillary node biopsied on 10/12/2014 revealing a low grade B-cell non-Hodgkin's lymphoma, felt to be consistent with follicular lymphoma. PET staging showed stage III disease. Patient was placed in observation as he was asymptomatic. In 2015 patient started having increased back pain and was found to have progressive virgie enlargement and right hydronephrosis. Patient was started on Rituxan and Bendeka, completing 5 cycles in June 2016. After 3 cycles imaging showed he had an excellent response and cycle #6 was ultimately omitted due to treatment toxicities. About 6 weeks later patient presented with increased pain and swelling in the right groin. 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 Patient is status post 3 cycles. During cycles 2 and 3 patient did have elevated LFTs and bilirubin, workup was negative for any obstruction, this did resolve after treatment. When patient was admitted for cycle #3 he did have the left anterior cervical lymph node enlargement, this was biopsied and consistent with patient's known lymphoma. Patient had severe scrotal and bilateral groin pain and swelling. He was evaluated by urology and treated for folliculitis, this is resolved. Patient's CBC and CMP has been reviewed my he is chronically anemic, LFTs are within normal limits, CBG is elevated, patient is mild to moderately protein calorie deficient. He admitted for cycle #4 of treatment. When seen today the patient has complaints of general malaise. He has been nauseated but denies any vomiting, his appetite is poor and he has early satiety. The lymph node in his neck is smaller and softer, the previous inguinal swelling and discomfort are significantly improved. Patient denies any fevers, painful or difficulty in swallowing, no chest pain or shortness of breath, he states that he does have difficulty coughing, he denies any hemoptysis or purulent sputum production. No abdominal pain or cramping, jaundice, distention, no dysuria or hematuria, his pain is currently controlled , he is having complaints of constipation and would like something for it. Patient is fully ambulatory. Review of Systems All systems: negative Constitutional: Reports as per HPI Past Medical History Past Medical History: Cancer, Hypertension, Osteoarthritis (OA) Additional Past Medical History / Comment(s): Diffuse large B cell Lymphoma of lymph nodes-multiple regions, elevated LFTs, right lower quadrant abdominal pain intermittently, chemo induced anemia per pt, right inguinal hernia History of Any Multi-Drug Resistant Organisms: None Reported Past Surgical History: Orthopedic Surgery Additional Past Surgical History / Comment(s): SHATTERED RT HEEL-SX TO REPAIR- HAS PLATE, TEETH EXTRACTED , laparoscopy w/ bx. LYMPH NODE BX., mediport Additional Past Anesthesia/Blood Transfusion Reaction / Comment(s): HAS OCC BECOME COMBATIVE AFTER SX, AND YELLING AND SCREAMING Past Psychological History: No Psychological Hx Reported Additional Psychological History / Comment(s): Pt resides alone. He is independent. Smoking Status: Former smoker Past Alcohol Use History: None Reported Additional Past Alcohol Use History / Comment(s): SMOKED OFF AND ON WHEN IN 3RD -4TH AND 5TH GRADE THEN MOVED [place] AND DID'NT SMOKE AGAIN UNTIL HE WAS 18- SMOKED 1PPD.quit 08-01-. Past Drug Use History: None Reported - Past Family History Father Family Medical History: Diabetes Mellitus, Myocardial Infarction (ND) Additional Family Medical History / Comment(s): ORGANIC BRAIN DISEASE. Father at the age of 68yrs. Mother Family Medical History: No Reported History Additional Family Medical History / Comment(s): HERNIA SX. MOM IS 83 AND VERY ACTIVE LIVES IN [place] AND STILL MOWS HER OWN GRASS. Medications and Allergies Home Medications Medication Instructions Recorded Confirmed Type Lactose-Reduced Food [Boost] 237 ml PO TID 09/19/16 10/31/16 History Prochlorperazine [Compazine] 10 mg PO Q6H PRN 10/09/16 10/31/16 History oxyCODONE ER [OxyCONTIN] 20 mg PO Q12H 10/31/16 10/31/16 History Allergies Allergy/AdvReac Type Severity Reaction Status Date / Time No Known Allergies Allergy Verified 10/31/16 15:43 Physical Exam Vitals: Vital Signs Temp Pulse Resp BP Pulse Ox 10/31/16 18:35 97.8 F 72 18 149/88 97 10/31/16 17:32 69 18 148/84 10/31/16 17:00 69 18 157/87 97 10/31/16 16:30 98.2 F 69 18 138/81 96 10/31/16 16:00 98.0 F 67 18 129/70 97 10/31/16 15:26 98.2 F 75 18 155/87 96 10/31/16 13:35 97.2 F L 77 18 146/92 97 Intake and Output 10/31/16 10/31/16 10/31/16 06:59 14:59 22:59 Intake Total 280.045 Balance 280.045 Intake: Intake, IV Titration 280.045 Amount riTUXimab 650 mg In 280.045 Sodium Chloride 0.9% 500 ml @ Titrate IV .Q0M ONE Rx#:[id number] Other: Weight 58.695 kg Patient Weight 11/01/16 06:59 Weight 58.695 kg - Constitutional General appearance: cooperative, no acute distress, thin - EENT Eyes: anicteric sclerae, edentulous, normal appearance ENT: normal oropharynx - Neck left anterior cervical LN, 2.5cm, soft. No other lymphadenopathy - Respiratory Respiratory: bilateral: CTA - Cardiovascular Rhythm: regular Heart sounds: normal: S1, S2 Abnormal Heart Sounds: no systolic murmur, no diastolic murmur, no rub, no S3 Gallop, no S4 Gallop, no click, no other leg Peripheral Edema: bilateral: None - Gastrointestinal General gastrointestinal: no absent bowel sounds, no decreased bowel sounds, no distended, no hepatomegaly, no hyperactive bowel sounds, normal bowel sounds, no organomegaly, no rigid, no scaphoid, soft, no splenomegaly, no tenderness, no umbilical hernia, no ventral hernia - Genitourinary right groin is less swollen, no scrotal edema, minimal discomfort - Integumentary Integumentary: pale - Neurologic Neurologic: CNII-XII intact - Musculoskeletal Musculoskeletal: generalized weakness, strength equal bilaterally - Psychiatric Psychiatric: A&O x's 3, appropriate affect, intact judgment & insight Results CBC & Chem 7: 10/31/16 13:46 10/31/16 13:46 Labs: Abnormal Lab Results - Last 24 Hours (Table) 10/31/16 10/31/16 Range/Units 13:46 13:46 RBC 3.28 L (4.30-5.90) m/uL Hgb 9.6 L (13.0-17.5) gm/dL Hct 29.7 L (39.0-53.0) % RDW 15.7 H (11.5-15.5) % Lymphocytes # 0.2 L (1.0-4.8) k/uL Carbon Dioxide 31 H (22-30) mmol/L BUN 8 L (9-20) mg/dL Creatinine 0.60 L (0.66-1.25) mg/dL Glucose 108 H (74-99) mg/dL Total Protein 5.1 L (6.3-8.2) g/dL Albumin 3.1 L (3.5-5.0) g/dL Chest x-ray: report reviewed Thrombosis Risk Factor Assmnt - DVT/VTE Prophylaxis DVT/VTE Prophylaxis: Pharmacologic Prophylaxis ordered - Choose All That Apply Any of the Below Risk Factors Present?: Yes Each Factor Represents 1 point: Age 41-60 years Other Risk Factors: Yes Each Risk Factor Represents 2 Points: Malignancy Other congenital or acquired thrombophilia - If yes, enter type in comment: No Thrombosis Risk Factor Assessment Total Risk Factor Score: 3 Thrombosis Risk Factor Assessment Level: Moderate Risk Assessment and Plan (1) Anemia due to chemotherapy Narrative/Plan: No acute intervention, labs will be monitored Status: Chronic (2) Constipation Narrative/Plan: Colace BID, MOM PRN, monitor closely Status: Acute (3) Diffuse large B-cell lymphoma of lymph nodes of multiple regions Narrative/Plan: Admit for cycle 4 of R-EPOCH, orders reviewed, supportive meds ordered, labs daily Status: Chronic (4) Left cervical lymphadenopathy Narrative/Plan: Improved, pathology confirmed lymphoma at last admit. Status: Chronic
--- NOTE | 2016-10-31 19:57 | CONS ---
DATE OF CONSULTATION: REASON FOR CONSULTATION: Interstitial changes in the chest x-ray, rule out pneumonia and sinusitis. HISTORY OF PRESENT ILLNESS: The patient is a very pleasant 51 -year-old gentleman well known to me from his previous admissions. He is admitted for elective chemotherapy, cycle 4 for his lymphoma. Patient has diffuse B cell lymphoma and patient is actively receiving chemotherapy at this point of time. ( ) 150 mL of IV normal saline. Patient denied any shortness of breath. Patient is complaining of sinusitis like symptoms for which I am going to go ahead and order Flonase. Patient denied any cough, runny nose. Patient denied any orthopnea, PND. The patient chest x-ray did show some interstitial infiltrate, although patient does not have any symptoms of pneumonia or congestive heart failure at this point of time. REVIEW OF SYSTEMS: CONSTITUTIONAL: No fever, no malaise, no fatigue. HEENT: Allergic sinusitis symptoms. CARDIOVASCULAR: No chest pain, orthopnea, PND, no palpitations, no syncope. PULMONARY: No shortness of breath, no cough, no hemoptysis. GASTROINTESTINAL: No diarrhea, no nausea, no vomiting, no abdominal pain. Normoactive bowel sounds. NEUROLOGICAL: No headaches, no weakness, no numbness. HEMATOLOGICAL: Denies any bleeding or petechiae. GENITOURINARY: Denies any burning micturition, frequency, or urgency. MUSCULOSKELETAL/RHEUMATOLOGICAL: Chronic low back pain. ENDOCRINE: Denies any polyuria or polydipsia. The rest of the 14 point review of systems is negative. PAST MEDICAL HISTORY: Significant for cancer, hypertension, osteoarthritis, that is patient has lymphoma, inguinal hernia in the past. Patient had swelling of the testicles in the past, secondary to lymphatic infiltration. SOCIAL HISTORY: Used to smoke in the past, quit July last year. FAMILY HISTORY: Significant for diabetes mellitus, myocardial infarction in the family. PHYSICAL EXAMINATION: Temperature 98.2, pulse of 69, respiratory rate of 18, blood pressure 148/84, saturating at 97% on room air. GENERAL: The patient is alert and oriented x3, not in any acute distress. Well developed, well nourished. HEENT: Pupils are round and equally reacting to light. EOMI. No scleral icterus. No conjunctival pallor. Normocephalic, atraumatic. No pharyngeal erythema. No thyromegaly. CARDIOVASCULAR: S1 and S2 present. No murmurs, rubs, or gallops. PULMONARY: Chest is clear to auscultation, no wheezing or crackles. ABDOMEN: Soft, nontender, nondistended, normoactive bowel sounds. No palpable organomegaly. MUSCULOSKELETAL: No joint swelling or deformity. EXTREMITIES: No cyanosis, clubbing, or pedal edema. NEUROLOGICAL: Gross neurological examination did not reveal any focal deficits. SKIN: No rashes. LABORATORY DATA: CBC, CMP are abnormal for mildly low hemoglobin of 9.6. Chest x-ray as mentioned above. ASSESSMENT AND PLAN: 1. Interstitial infiltrate on the chest x-ray. My suspicion is low for pneumonia. I do not believe patient will need any antibiotics at this point of time unless the patient becomes febrile. Patient does not have leukocytosis either. 2. Diffuse B-cell lymphoma for which patient is actively receiving chemotherapy. 3. Chronic low back pain. 4. Allergic sinusitis for which I will use Flonase. Recommend to continue IV fluids for chemotherapy. I do not believe patient has any heart failure at this point of time, although ( ) order a chest ( ) BNP ( ) the patient does not have any JVD or S3. Thank you for letting me participate in the patient's care. Will continue to follow the patient.
[2016-10-31] MEDS ORDERED: MAGNESIUM HYDROXIDE 2,400 MG/10 ML CUP PO ONE (20:05)
[2016-10-31] MEDS: DOCUSATE 100 MG CAP PO SCH (21:47)
[2016-10-31] MEDS ORDERED: NON-FORMULARY DRUG (Lactose-Reduced Food [Boost] 237 ML) PO SCH (22:00)
[2016-10-31] MEDS: oxyCODONE-APAP 10-325MG 1 EACH TAB PO PRN (23:41)
[2016-11-01] MEDS: SODIUM CHLORIDE 0.9% 1,000 ML IV SCH ×5 (03:58→21:03)
[2016-11-01] MEDS: oxyCODONE ER 20 MG TAB.ER.12H PO SCH ×2 (06:20→17:59)
[2016-11-01] MEDS: predniSONE 50 MG TAB PO SCH ×2 (09:03→21:02)
[2016-11-01] MEDS: ENOXAPARIN 40 MG/0.4 ML SYRINGE SQ SCH (09:04)
[2016-11-01] MEDS: DOCUSATE 100 MG CAP PO SCH ×2 (09:04→21:03)
[2016-11-01] MEDS: SALT AND SODA MOUTHWASH 1,000 ML PO SCH ×4 (09:04→21:03)
[2016-11-01] MEDS: FAMOTIDINE 20 MG/2 ML VIAL IVP SCH (09:04)
[2016-11-01 10:10] VITALS: BMI 20.9
[2016-11-01] MEDS: ONDANSETRON 16 MG in SODIUM CHLORIDE 0.9% 50 ML IVPB SCH (16:51)
--- NOTE | 2016-11-01 17:22 | P.PN ---
Subjective Principal diagnosis: Diffuse large B-cell NHL, admit for CIVI chemotherapy Pt seen in follow up, he feels much better today, no fever, nausea, oral irritation, cough, SOB, his appetite is better today, no abd pain, he thinks he will have a BM today, he is ambulating. Objective - Vital Signs Vital signs: Vital Signs Temp 97.2 F L 11/01/16 15:00 Pulse 69 11/01/16 15:00 Resp 16 11/01/16 15:00 BP 125/74 11/01/16 15:00 Pulse Ox 96 11/01/16 15:00 Intake & Output 10/31/16 11/01/16 11/01/16 18:59 06:59 18:59 Intake Total 057.986 6846 1660 Output Total 275 Balance 278.023 2547 1385 Weight 58.695 kg 58.695 kg Intake: IV 1800 1200 Sodium Chloride 0.9% 1, 1800 1200 000 ml @ 150 mls/hr IV . Q6H40M [facility] Rx#:[id number] Intake, IV Titration 280.045 330 220 Amount DOXOrubicin HCL 17 mg In 60 40 Sodium Chloride 0.9% 100 ml @ 4.521 mls/hr IV Q24H [facility] Rx#:[id number] Etoposide 85 mg In Sodium 240 160 Chloride 0.9% 425 ml @ 17.885 mls/hr IV Q24H [facility] Rx#:[id number] riTUXimab 650 mg In 280.045 Sodium Chloride 0.9% 500 ml @ Titrate IV .Q0M ONE Rx#:[id number] vinCRIStine SULFATE 0.67 30 20 mg In Sodium Chloride 0.9 % 50 ml @ 2.111 mls/hr IV Q24H [facility] Rx#:[id number] Oral 240 Output: Urine 275 Other: Voiding Method Toilet # Voids 2 - Constitutional General appearance: Present: average body habitus, cooperative, no acute distress - EENT Eyes: Present: edentulous, PERRLA, normal appearance ENT: Present: hearing grossly normal, normal oropharynx. Absent: hard of hearing, other, pharyngeal erythema, thrush, tonsillar exudates, tonsillar swelling - Neck Details: persistent left anterior cervical LN, soft - Respiratory Respiratory: bilateral: CTA - Cardiovascular Rhythm: regular Heart sounds: normal: S1, S2 - Peripheral edema leg Peripheral Edema: bilateral: None - Gastrointestinal General gastrointestinal: Present: normal bowel sounds, soft - Integumentary Integumentary: Present: normal - Neurologic Neurologic: Present: CNII-XII intact - Musculoskeletal Musculoskeletal: Present: strength equal bilaterally - Psychiatric Psychiatric: Present: A&O x's 3, appropriate affect, intact judgment & insight - Labs CBC & Chem 7: 10/31/16 13:46 10/31/16 13:46 Labs: Microbiology - Last 24 Hours (Table) 10/31/16 13:55 Blood Culture - Preliminary Blood No Growth after 24 hours 10/31/16 13:46 Blood Culture - Preliminary Blood No Growth after 24 hours 10/31/16 15:40 Urine Culture - Preliminary Urine,Clean Catch Assessment and Plan (1) Anemia due to chemotherapy Narrative/Plan: No acute intervention, labs will be monitored Status: Chronic (2) Constipation Narrative/Plan: Cont meds, monitor closely Status: Acute (3) Diffuse large B-cell lymphoma of lymph nodes of multiple regions Narrative/Plan: Admit for cycle 4 of R-EPOCH, orders reviewed, supportive meds ordered, labs daily Status: Chronic (4) Left cervical lymphadenopathy Status: Chronic
--- NOTE | 2016-11-01 17:26 | P.PN ---
Subjective Date of service 11/01/2016 Progress note being dictated for Dr. Grayson Interval history: This a 51-year-old gentleman admitted for elective chemotherapy, cycle 4 for diffuse B cell lymphoma. Second day of chemotherapy , tolerating well. States nausea and vomiting much improved compared to yesterday. Complaining of constipation. Denies any chest pain, palpitations, or shortness of breath. Denies cough. Pain controlled. Ambulating, tolerating exertion well. Denies lightheadedness dizziness or focal deficits. Afebrile. Objective - Vital Signs Vital signs: Vital Signs Temp 97.2 F L 11/01/16 15:00 Pulse 69 11/01/16 15:00 Resp 16 11/01/16 15:00 BP 125/74 11/01/16 15:00 Pulse Ox 96 11/01/16 15:00 Intake & Output 10/31/16 11/01/16 11/01/16 18:59 06:59 18:59 Intake Total 418.015 7666 1660 Output Total 275 Balance 954.026 2315 1385 Weight 58.695 kg 58.695 kg Intake: IV 1800 1200 Sodium Chloride 0.9% 1, 1800 1200 000 ml @ 150 mls/hr IV . Q6H40M [facility] Rx#:[id number] Intake, IV Titration 280.045 330 220 Amount DOXOrubicin HCL 17 mg In 60 40 Sodium Chloride 0.9% 100 ml @ 4.521 mls/hr IV Q24H [facility] Rx#:[id number] Etoposide 85 mg In Sodium 240 160 Chloride 0.9% 425 ml @ 17.885 mls/hr IV Q24H [facility] Rx#:[id number] riTUXimab 650 mg In 280.045 Sodium Chloride 0.9% 500 ml @ Titrate IV .Q0M ONE Rx#:[id number] vinCRIStine SULFATE 0.67 30 20 mg In Sodium Chloride 0.9 % 50 ml @ 2.111 mls/hr IV Q24H [facility] Rx#:[id number] Oral 240 Output: Urine 275 Other: Voiding Method Toilet # Voids 2 - Exam PHYSICAL EXAM: VITAL SIGNS: As above GENERAL: [Sitting up at side of bed, no acute distress] HEENT: [Pupils equal conjunctiva normal.] NECK: [Supple, no JVD] RESPIRATORY EFFORT:[Normal] LUNGS: [Clear, no wheezing, no crackles] CARDIOVASCULAR[regular S1-S2, no murmurs rubs or gallops, no edema] GI: [Abdomen soft, nontender, positive bowel sounds.] PSYCH: [Alert and oriented -3, mood and affect normal.] NEURO: No focal deficits, moves all 4 extremities, strength and sensation grossly intact - Labs CBC & Chem 7: 10/31/16 13:46 10/31/16 13:46 Labs: Microbiology - Last 24 Hours (Table) 10/31/16 13:55 Blood Culture - Preliminary Blood No Growth after 24 hours 10/31/16 13:46 Blood Culture - Preliminary Blood No Growth after 24 hours 10/31/16 15:40 Urine Culture - Preliminary Urine,Clean Catch Assessment and Plan Plan: 1. [Diffuse B-cell lymphoma, actively receiving chemotherapy, cycle 4]. 2. [Interstitial infiltrate on chest x-ray with low suspicion of pneumonia, no antibiotics recommended at this time]. 3. [Chronic low back pain]. 4. [ALLERGY sinusitis]. 5. [Constipation]. 6. [Anemia secondary to chemotherapy]. 7. [Left cervical lymphadenopathy]. Plan: Continue on current medication regime , Colace, milk of mag, monitoring and symptomatic treatment. Close monitoring of electrolytes, hemoglobin with repeat labs ordered for a.m. scheduled for third day chemotherapy tomorrow as per oncology. Increase ambulation as tolerated. The impression and plan of care has been dictated as directed. : I performed a H&P examination of this patient and discussed the same with the dictator. I agree with the dictator's note. Any additional findings/opinions/ etc. will be noted.
[2016-11-01] MEDS: SODIUM CHLORIDE 0.9% IV SCH ×3 (18:34)
[2016-11-01] MEDS: ETOPOSIDE IV SCH (18:34)
[2016-11-01] MEDS: DOXORUBICIN HCL IV SCH (18:34)
[2016-11-01] MEDS: VINCRISTINE SULFATE IV SCH (18:34)
[2016-11-01] MEDS: oxyCODONE-APAP 10-325MG 1 EACH TAB PO PRN (23:14)
[2016-11-02] MEDS: SODIUM CHLORIDE 0.9% 1,000 ML IV SCH ×4 (01:17→20:47)
[2016-11-02] MEDS: oxyCODONE ER 20 MG TAB.ER.12H PO SCH ×2 (05:59→17:32)
[2016-11-02 07:09] LABS: Anisocytosis Slight; Basophils % (A) 0 %; CH 29.3; CHCM 31.8; Eosinophils % (A) 0 %; HDW 3.69; HGB 8.7 gm/dL (13.0-17.5); Hypochromasia Moderate; Luc # (Auto) 0.03; Luc % (Auto) 0; Lymphocytes # (A) 0.2 k/uL (1.0-4.8); Lymphocytes % (A) 2 %; MCH 28.9 pg (25.0-35.0); MCHC 31.1 g/dL (31.0-37.0); MCV 92.8 fL (80.0-100.0); Mean Platelet Volume 7.3; Monocytes # (A) 0.3 k/uL (0-1.0); Monocytes % (A) 4 %; Neutrophils # (A) 7.2 k/uL (1.3-7.7); Neutrophils % (A) 94 %; Poikilocytosis Slight; RBC 3.01 m/uL (4.30-5.90); RDW 16.1 % (11.5-15.5); WBC 7.7 k/uL (3.8-10.6)
[2016-11-02] MEDS: DOCUSATE 100 MG CAP PO SCH (07:26)
[2016-11-02] MEDS: SALT AND SODA MOUTHWASH 1,000 ML PO SCH ×4 (07:26→20:46)
[2016-11-02] MEDS: ENOXAPARIN 40 MG/0.4 ML SYRINGE SQ SCH (07:26)
[2016-11-02] MEDS: predniSONE 50 MG TAB PO SCH ×2 (07:26→20:45)
[2016-11-02 07:32] LABS: Anion Gap 7 mmol/L; Blood Urea Nitrogen 13 mg/dL (9-20); Calcium 8.5 mg/dL (8.4-10.2); Carbon Dioxide 30 mmol/L (22-30); Chloride 106 mmol/L (98-107); Glucose 141 mg/dL (74-99); Non-African American GFR(MDRD) >60 (>60 ml/min/1.73 sqM); Potassium 4.4 mmol/L (3.5-5.1); Sodium 143 mmol/L (137-145)
[2016-11-02] MEDS: SENNOSIDES-DOCUSATE SODIUM 1 EACH TAB PO SCH ×2 (09:59→20:45)
[2016-11-02] MEDS: FAMOTIDINE 20 MG/2 ML VIAL IVP SCH (10:15)
--- NOTE | 2016-11-02 12:35 | P.PN ---
Subjective Principal diagnosis: Diffuse large B-cell NHL, admit for CIVI chemotherapy Pt seen in follow up, he continues to feel good, no BM yet, he is taking multiple medications to resolve, he is drinking and eating well, fully ambulatory, no fevers, nausea is very mild, no oral irritation, abd pain. Objective - Vital Signs Vital signs: Vital Signs Temp 98.8 F 11/02/16 07:00 Pulse 72 11/02/16 07:00 Resp 16 11/02/16 07:00 BP 157/72 11/02/16 07:00 Pulse Ox 98 11/02/16 07:00 Intake & Output 11/01/16 11/02/16 11/02/16 18:59 06:59 18:59 Intake Total 1900 2720 Output Total 275 1300 Balance 1625 1420 Weight 58.695 kg Intake: IV 1200 1800 Sodium Chloride 0.9% 1, 1200 1800 000 ml @ 150 mls/hr IV . Q6H40M [facility] Rx#:[id number] Intake, IV Titration 220 330 Amount DOXOrubicin HCL 17 mg In 40 60 Sodium Chloride 0.9% 100 ml @ 4.521 mls/hr IV Q24H [facility] Rx#:[id number] Etoposide 85 mg In Sodium 160 240 Chloride 0.9% 425 ml @ 17.885 mls/hr IV Q24H [facility] Rx#:[id number] vinCRIStine SULFATE 0.67 20 30 mg In Sodium Chloride 0.9 % 50 ml @ 2.111 mls/hr IV Q24H [facility] Rx#:[id number] Oral 480 590 Output: Urine 275 1300 Other: Voiding Method Toilet Toilet Urinal Urinal # Voids 2 - Constitutional General appearance: Present: average body habitus, cooperative, no acute distress - EENT Eyes: Present: anicteric sclerae, edentulous, normal appearance ENT: Present: normal oropharynx - Neck Details: left anterior cervical LN is softer, less defined - Respiratory Respiratory: bilateral: CTA - Cardiovascular Rhythm: regular Heart sounds: normal: S1, S2 - Peripheral edema foot Peripheral Edema: bilateral: None - Gastrointestinal General gastrointestinal: Present: normal bowel sounds, soft. Absent: absent bowel sounds, decreased bowel sounds, distended, hepatomegaly, hyperactive bowel sounds, organomegaly, rigid, scaphoid, splenomegaly, tenderness, umbilical hernia, ventral hernia - Integumentary Integumentary: Present: normal - Neurologic Neurologic: Present: CNII-XII intact - Musculoskeletal Musculoskeletal: Present: strength equal bilaterally - Psychiatric Psychiatric: Present: A&O x's 3, appropriate affect, intact judgment & insight - Labs CBC & Chem 7: 11/02/16 06:05 11/02/16 06:05 Labs: Abnormal Lab Results - Last 24 Hours (Table) 11/02/16 11/02/16 Range/Units 06:05 06:05 RBC 3.01 L (4.30-5.90) m/uL Hgb 8.7 L (13.0-17.5) gm/dL Hct 28.0 L (39.0-53.0) % RDW 16.1 H (11.5-15.5) % Lymphocytes # 0.2 L (1.0-4.8) k/uL Creatinine 0.62 L (0.66-1.25) mg/dL Glucose 141 H (74-99) mg/dL Microbiology - Last 24 Hours (Table) 10/31/16 15:40 Urine Culture - Final Urine,Clean Catch 10/31/16 13:55 Blood Culture - Preliminary Blood No Growth after 24 hours 10/31/16 13:46 Blood Culture - Preliminary Blood No Growth after 24 hours - Imaging and Cardiology Chest x-ray: report reviewed, other (discussed results with pt) Assessment and Plan (1) Anemia due to chemotherapy Narrative/Plan: stable, no intervention Status: Chronic (2) Constipation Narrative/Plan: meds adjusted, continue ATC and PRN med use Status: Acute (3) Diffuse large B-cell lymphoma of lymph nodes of multiple regions Narrative/Plan: Continue chemo without adjustment, cycle 4 of R-EPOCH, supportive meds ordered, labs daily Status: Chronic (4) Left cervical lymphadenopathy Narrative/Plan: slightly improved Status: Chronic
--- NOTE | 2016-11-02 15:44 | P.PN ---
Subjective Date of service 11/02/2016 Progress note being dictated for Dr. Spear. Interval history: This a 51-year-old gentleman admitted for elective chemotherapy, cycle 4 for diffuse B cell lymphoma. Completing third day of chemotherapy, tolerating well. Ambulating in hallway, tolerating exertion well. Good Diet intake without nausea and vomiting. No bowel movement. Denies any chest pain, palpitations, or shortness of breath. Denies cough. Pain controlled. Denies lightheadedness dizziness or focal deficits. Afebrile. Objective - Vital Signs Vital signs: Vital Signs Temp 98.8 F 11/02/16 07:00 Pulse 72 11/02/16 07:00 Resp 16 11/02/16 07:00 BP 157/72 11/02/16 07:00 Pulse Ox 98 11/02/16 07:00 Intake & Output 11/01/16 11/02/16 11/02/16 18:59 06:59 18:59 Intake Total 1900 2720 Output Total 275 1300 Balance 1625 1420 Weight 58.695 kg Intake: IV 1200 1800 Sodium Chloride 0.9% 1, 1200 1800 000 ml @ 150 mls/hr IV . Q6H40M VIJAY Rx#:[id number] Intake, IV Titration 220 330 Amount DOXOrubicin HCL 17 mg In 40 60 Sodium Chloride 0.9% 100 ml @ 4.521 mls/hr IV Q24H VIJAY Rx#:[id number] Etoposide 85 mg In Sodium 160 240 Chloride 0.9% 425 ml @ 17.885 mls/hr IV Q24H VIJAY Rx#:[id number] vinCRIStine SULFATE 0.67 20 30 mg In Sodium Chloride 0.9 % 50 ml @ 2.111 mls/hr IV Q24H VIJAY Rx#:[id number] Oral 480 590 Output: Urine 275 1300 Other: Voiding Method Toilet Toilet Urinal Urinal # Voids 2 3 - Exam PHYSICAL EXAM: VITAL SIGNS: As above GENERAL: [Sitting up at side of bed, no acute distress] HEENT: [Pupils equal conjunctiva normal.] NECK: [Supple, no JVD] RESPIRATORY EFFORT:[Normal] LUNGS: [Clear, no wheezing, no crackles] CARDIOVASCULAR[regular S1-S2, no murmurs rubs or gallops, no edema] GI: [Abdomen soft, nontender, positive bowel sounds.] PSYCH: [Alert and oriented -3, mood and affect normal.] NEURO: No focal deficits, moves all 4 extremities, strength and sensation grossly intact - Labs CBC & Chem 7: 11/02/16 06:05 11/02/16 06:05 Labs: Abnormal Lab Results - Last 24 Hours (Table) 11/02/16 11/02/16 Range/Units 06:05 06:05 RBC 3.01 L (4.30-5.90) m/uL Hgb 8.7 L (13.0-17.5) gm/dL Hct 28.0 L (39.0-53.0) % RDW 16.1 H (11.5-15.5) % Lymphocytes # 0.2 L (1.0-4.8) k/uL Creatinine 0.62 L (0.66-1.25) mg/dL Glucose 141 H (74-99) mg/dL Microbiology - Last 24 Hours (Table) 10/31/16 15:40 Urine Culture - Final Urine,Clean Catch 10/31/16 13:55 Blood Culture - Preliminary Blood No Growth after 24 hours 10/31/16 13:46 Blood Culture - Preliminary Blood No Growth after 24 hours Assessment and Plan Plan: 1. [Diffuse B-cell lymphoma, actively receiving chemotherapy, cycle 4]. 2. [Interstitial infiltrate on chest x-ray with low suspicion of pneumonia, no antibiotics recommended at this time]. 3. [Chronic low back pain]. 4. [ALLERGY sinusitis]. 5. [Constipation]. 6. [Anemia secondary to chemotherapy]. 7. [Left cervical lymphadenopathy]. Plan: Continue on current medication regime , monitoring and symptomatic treatment. Lactulose added to med regime for constipation.Close monitoring of electrolytes, hemoglobin with repeat labs ordered for a.m. scheduled for fourth day chemotherapy tomorrow as per oncology. Further recommendations to follow. The impression and plan of care has been dictated as directed. : I performed a H&P examination of this patient and discussed the same with the dictator. I agree with the dictator's note. Any additional findings/opinions/ etc. will be noted.
[2016-11-02] MEDS: ONDANSETRON 16 MG in SODIUM CHLORIDE 0.9% 50 ML IVPB SCH (16:37)
[2016-11-02] MEDS: LACTULOSE 20 GM/30 ML CUP PO SCH ×2 (16:37→20:45)
[2016-11-02] MEDS: DOXORUBICIN HCL IV SCH (17:16)
[2016-11-02] MEDS: ETOPOSIDE IV SCH (17:16)
[2016-11-02] MEDS: SODIUM CHLORIDE 0.9% IV SCH ×3 (17:16→17:17)
[2016-11-02] MEDS: VINCRISTINE SULFATE IV SCH (17:17)
[2016-11-02] MEDS ORDERED: LACTULOSE 20 GM/30 ML CUP PO SCH (21:00)
[2016-11-03] MEDS: oxyCODONE-APAP 10-325MG 1 EACH TAB PO PRN ×2 (00:14→13:22)
[2016-11-03] MEDS: SODIUM CHLORIDE 0.9% 1,000 ML IV SCH ×3 (03:19→21:13)
[2016-11-03] MEDS: oxyCODONE ER 20 MG TAB.ER.12H PO SCH (06:14)
[2016-11-03] MEDS: SALT AND SODA MOUTHWASH 1,000 ML PO SCH ×4 (07:22→21:18)
[2016-11-03] MEDS: LACTULOSE 20 GM/30 ML CUP PO SCH ×2 (07:22→21:17)
[2016-11-03] MEDS: predniSONE 50 MG TAB PO SCH ×2 (07:22→21:17)
[2016-11-03] MEDS: SENNOSIDES-DOCUSATE SODIUM 1 EACH TAB PO SCH ×2 (07:25→23:53)
[2016-11-03] MEDS: FAMOTIDINE 20 MG/2 ML VIAL IVP SCH (10:00)
--- NOTE | 2016-11-03 10:51 | PN ---
DATE OF SERVICE: 11/02/2016 This 51-year-old gentleman admitted with diffuse B cell lymphoma. He is being closely monitored. The patient receiving chemotherapy. No chest pain. No palpitations. Seen and evaluated the patient along with nurse practitioner. Please refer to the nurse practitioner notes and impression documented as a scribe for further information.
[2016-11-03] MEDS: ONDANSETRON 16 MG in SODIUM CHLORIDE 0.9% 50 ML IVPB SCH (16:53)
--- NOTE | 2016-11-03 17:21 | P.PN ---
Subjective Principal diagnosis: Diffuse large B-cell NHL, admit for CIVI chemotherapy Pt seen in follow up, he continues to do well with treatment, pt had BM today and feels much better, no fevers, oral irritation, SOB, cough,he is drinking and eating well, fully ambulatory, pain is fairly well controlled. Objective - Vital Signs Vital signs: Vital Signs Temp 97.3 F L 11/03/16 15:06 Pulse 68 11/03/16 15:06 Resp 14 11/03/16 15:06 BP 140/86 11/03/16 15:06 Pulse Ox 98 11/03/16 15:06 Intake & Output 11/02/16 11/03/16 11/03/16 18:59 06:59 18:59 Intake Total 2091.6 Output Total 400 1000 Balance -400 1091.6 Intake: IV 1800 Sodium Chloride 0.9% 1, 1800 000 ml @ 150 mls/hr IV . Q6H40M VIJAY Rx#:[id number] Intake, IV Titration 291.6 Amount DOXOrubicin HCL 17 mg In 54 Sodium Chloride 0.9% 100 ml @ 4.521 mls/hr IV Q24H [facility]JAY Rx#:[id number] Etoposide 85 mg In Sodium 212.4 Chloride 0.9% 425 ml @ 17.885 mls/hr IV Q24H VIJAY Rx#:[id number] vinCRIStine SULFATE 0.67 25.2 mg In Sodium Chloride 0.9 % 50 ml @ 2.111 mls/hr IV Q24H VIJAY Rx#:[id number] Output: Urine 400 1000 Other: Voiding Method Toilet Toilet Toilet Urinal Urinal Urinal # Voids 3 3 # Bowel Movements 1 1 - Constitutional General appearance: Present: average body habitus, cooperative, no acute distress - EENT Eyes: Present: anicteric sclerae, normal appearance ENT: Present: normal oropharynx - Neck Details: left anterior cervical LN persists but is soft, ill defined - Respiratory Respiratory: bilateral: CTA - Cardiovascular Heart sounds: normal: S1, S2 - Peripheral edema leg Peripheral Edema: bilateral: None - Gastrointestinal General gastrointestinal: Present: normal bowel sounds, soft. Absent: absent bowel sounds, decreased bowel sounds, distended, hepatomegaly, hyperactive bowel sounds, organomegaly, rigid, scaphoid, splenomegaly, tenderness, umbilical hernia, ventral hernia - Integumentary Integumentary: Present: pale - Neurologic Neurologic: Present: CNII-XII intact - Musculoskeletal Musculoskeletal: Present: strength equal bilaterally - Psychiatric Psychiatric: Present: A&O x's 3, appropriate affect, intact judgment & insight - Labs CBC & Chem 7: 11/02/16 06:05 11/02/16 06:05 Labs: Microbiology - Last 24 Hours (Table) 10/31/16 13:55 Blood Culture - Preliminary Blood No Growth after 72 hours 10/31/16 13:46 Blood Culture - Preliminary Blood No Growth after 72 hours Assessment and Plan (1) Anemia due to chemotherapy Narrative/Plan: stable, no intervention Status: Chronic (2) Constipation Narrative/Plan: Resolved today, pt will continue on senna BID, hold for diarrhea Status: Acute (3) Diffuse large B-cell lymphoma of lymph nodes of multiple regions Narrative/Plan: Cont chemotherapy without adjustment. Pt has appt for neulasta on Mon at the office, he will make CBC/follow up appts when there. Status: Chronic (4) Left cervical lymphadenopathy Narrative/Plan: Stable Status: Chronic
[2016-11-03] MEDS: SODIUM CHLORIDE 0.9% IV SCH ×3 (17:33)
[2016-11-03] MEDS: VINCRISTINE SULFATE IV SCH (17:33)
[2016-11-03] MEDS: DOXORUBICIN HCL IV SCH (17:33)
[2016-11-03] MEDS: ETOPOSIDE IV SCH (17:33)
[2016-11-03] MEDS: oxyCODONE ER 15 MG TAB.ER.12H PO SCH (21:27)
--- NOTE | 2016-11-03 21:29 | PN ---
DATE OF SERVICE: 11/03/2016 This 51 -year-old gentleman admitted with diffuse B-cell lymphoma, chemotherapy. No chest pain. No palpitations. No fever. On exam, alert and oriented x3. Pulse is 68, blood pressure 140/86, respirations 14, temperature 97.3, pulse ox 98% on room air. HEENT: Conjunctivae normal. NECK: No jugular venous distention. CARDIOVASCULAR: S1, S2 muffled. RESPIRATORY: Breath sounds diminished at the bases. No rhonchi. No crackles. ABDOMEN: Soft, nontender. No mass palpable. LEGS: No edema. No swelling. CENTRAL NERVOUS SYSTEM: No focal deficits. LABS: WBC 7.7, hemoglobin 8.7. Other labs albumin 3.1. ASSESSMENT: 1. Diffuse B cell lymphoma on active chemotherapy cycle 4. 2. Interstitial infiltrate on chest x-ray with low suspicion pneumonia no antibiotics recommend at this time. 3. Chronic low back pain. 4. Allergic sinusitis. 5. Constipation. 6. Anemia, secondary to chemotherapy. 7. Left cervical lymphadenopathy history. RECOMMENDATION AND DISCUSSION: I recommend to continue current medications. Continue symptomatic treatment. Otherwise, at this time, continue chemotherapy. Labs and closely monitor. Patient is and steroids as well. Prognosis guarded. Further recommendations to follow. MTDD
[2016-11-04] MEDS: oxyCODONE-APAP 10-325MG 1 EACH TAB PO PRN ×2 (01:31→16:06)
[2016-11-04] MEDS: SODIUM CHLORIDE 0.9% 1,000 ML IV SCH ×3 (05:22→22:59)
--- NOTE | 2016-11-04 09:19 | P.PN ---
Subjective Principal diagnosis: Diffuse large B-cell non-Hodgkin's lymphoma-on high dose infusional chemotherapy The patient continues to tolerate chemotherapy well. He denies any specific complaints today. No history of any nausea or vomiting or diarrhea. He had been constipated previously, but bowels have been moving over the last day. Urine output remains excellent. He reports a fair appetite. No history of any mouth sores. Review of systems otherwise negative out of 10 Objective - Vital Signs Vital signs: Vital Signs Temp 97.1 F L 11/04/16 07:00 Pulse 56 L 11/04/16 07:00 Resp 16 11/04/16 07:00 BP 146/83 11/04/16 07:00 Pulse Ox 99 11/04/16 07:00 Intake & Output 11/03/16 11/04/16 11/04/16 18:59 06:59 18:59 Intake Total 590 Output Total 4300 Balance -3710 Intake: Oral 590 Output: Urine 4300 Other: Voiding Method Toilet Toilet Urinal Urinal # Voids 3 # Bowel Movements 1 - Constitutional General appearance: Present: no acute distress - EENT Eyes: Present: EOMI, PERRLA ENT: Present: hearing grossly normal, normal oropharynx - Respiratory Respiratory: bilateral: CTA - Cardiovascular Rhythm: regular Heart sounds: normal: S1, S2 - Gastrointestinal General gastrointestinal: Present: normal bowel sounds, soft - Integumentary Integumentary: Present: normal - Neurologic Neurologic: Present: CNII-XII intact - Musculoskeletal Musculoskeletal: Present: strength equal bilaterally - Psychiatric Psychiatric: Present: A&O x's 3, appropriate affect - Labs CBC & Chem 7: 11/02/16 06:05 11/02/16 06:05 Labs: Microbiology - Last 24 Hours (Table) 10/31/16 13:55 Blood Culture - Preliminary Blood No Growth after 72 hours 10/31/16 13:46 Blood Culture - Preliminary Blood No Growth after 72 hours Assessment and Plan (1) Diffuse large B-cell lymphoma of lymph nodes of multiple regions Narrative/Plan: The patient has been admitted for high dose infusional chemotherapy. He is tolerating treatment well. No new side effects reported, as noted above. Counts and chemistries are being monitored per protocol. Continue treatment. He will complete the chemotherapy early tomorrow morning and will subsequently be discharged, with clinical exam as well as labs are satisfactory Status: Chronic (2) Anemia due to chemotherapy Narrative/Plan: Hemoglobin was 8.7 which is acceptable. This is due to chemotherapy. White blood cells and platelets are in the normal range. He will be getting Neulasta as an outpatient postchemotherapy Status: Chronic Plan: The patient has been taking Percocet for musculoskeletal back and hip pain. He states that he is doing much better with the OxyContin, with the very low need for Percocet, as well as much better bowel movements. On 10 was not approved by his insurance however. We will check if MS Contin would be covered. The patient was advised, however, that you and if this was covered, there is no guarantee that it wouldn't work as well as the OxyContin for him.
[2016-11-04] MEDS: predniSONE 50 MG TAB PO SCH ×2 (09:53→22:56)
[2016-11-04] MEDS: SENNOSIDES-DOCUSATE SODIUM 1 EACH TAB PO SCH ×2 (09:53→22:59)
[2016-11-04] MEDS: LACTULOSE 20 GM/30 ML CUP PO SCH ×2 (09:53→22:55)
[2016-11-04] MEDS: oxyCODONE ER 15 MG TAB.ER.12H PO SCH ×2 (09:53→22:54)
[2016-11-04] MEDS: SALT AND SODA MOUTHWASH 1,000 ML PO SCH ×4 (09:55→22:56)
[2016-11-04] MEDS ORDERED: CYCLOPHOSPHAMIDE IV ONE (18:00)
[2016-11-04] MEDS ORDERED: SODIUM CHLORIDE 0.9% IV ONE (18:00)
[2016-11-04] MEDS: FAMOTIDINE 20 MG/2 ML VIAL IVP SCH (18:14)
[2016-11-04] MEDS: ONDANSETRON 16 MG in SODIUM CHLORIDE 0.9% 50 ML IVPB SCH (18:14)
--- NOTE | 2016-11-04 20:17 | PN ---
DATE OF SERVICE: 11/04/2016 This 51-year-old gentleman who was admitted with diffuse B cell lymphoma on active chemotherapy cycle 4. The patient is feeling better. The patient has some anemia at this time. No chest pain. No palpitations. No fever. On exam, alert and oriented times three. Pulse 65. Blood pressure 141/72, respirations 18, temperature 98.2. Pulse ox 95% on room air. HEENT: Conjunctivae normal. NECK: No jugular venous distention. CARDIOVASCULAR: S1, S2 muffled. RESPIRATORY: Breath sounds diminished at the bases. A few scattered rhonchi and crackles. ABDOMEN: Soft. Nontender. No mass palpable. LEGS: No edema, no swelling. Nervous system: No focal deficits. LABS: WBC 7.7, hemoglobin is 8.7, sodium 143, potassium 4.4. ASSESSMENT: 1. Diffuse B cell lymphoma on active chemotherapy cycle 4. 2. infiltrate on the chest x-ray with low suspicion pneumonia. Antibiotics recommend at this time. 3. Chronic back pain and degenerative joint disease. 4. Allergic sinusitis. 5. Constipation. 6. Anemia secondary to chemotherapy, normocytic. 7. Cervical lymphadenopathy history. 8. Mild hypoalbuminemia. 9. Mild protein calorie malnutrition. RECOMMENDATIONS AND DISCUSSION: In this 51-year-old gentleman who presented with multiple complex medical issues, we will monitor the patient closely. Continue the chemotherapy. Continue symptomatic treatment. Repeat labs. Closely follow with hematology/oncology. Increase ambulation. Further recommendations to follow. MTDD
[2016-11-04 22:14] VITALS: RESP 16
[2016-11-05] MEDS: oxyCODONE-APAP 10-325MG 1 EACH TAB PO PRN (03:18)
[2016-11-05] MEDS: SODIUM CHLORIDE 0.9% 1,000 ML IV SCH (05:59)
[2016-11-05] MEDS: SENNOSIDES-DOCUSATE SODIUM 1 EACH TAB PO SCH (08:26)
[2016-11-05] MEDS: oxyCODONE ER 15 MG TAB.ER.12H PO SCH (08:26)
[2016-11-05] MEDS: SALT AND SODA MOUTHWASH 1,000 ML PO SCH (08:26)
[2016-11-05] MEDS: LACTULOSE 20 GM/30 ML CUP PO SCH (08:26)
[2016-11-05 08:55] VITALS: BP 142/71; PULSE 57; TEMP 97.8
[2016-11-05 09:04] LABS: CH 28.7; CHCM 31.5; HCT 25.9 % (39.0-53.0); HDW 3.54; HGB 8.3 gm/dL (13.0-17.5); Hypochromasia Moderate; MCH 29.5 pg (25.0-35.0); MCHC 32.2 g/dL (31.0-37.0); MCV 91.4 fL (80.0-100.0); Mean Platelet Volume 6.7; Poikilocytosis Slight; RBC 2.83 m/uL (4.30-5.90); RDW 14.7 % (11.5-15.5); WBC 4.2 k/uL (3.8-10.6)
[2016-11-05 09:19] LABS: Anion Gap 9 mmol/L; Blood Urea Nitrogen 15 mg/dL (9-20); Calcium 8.4 mg/dL (8.4-10.2); Carbon Dioxide 30 mmol/L (22-30); Chloride 103 mmol/L (98-107); Glucose 161 mg/dL (74-99); Non-African American GFR(MDRD) >60 (>60 ml/min/1.73 sqM); Potassium 3.9 mmol/L (3.5-5.1); Sodium 142 mmol/L (137-145)
--- NOTE | 2016-11-05 11:20 | P.DS ---
Providers Date of admission: 10/31/16 12:22 Expected date of discharge: 11/05/16 Attending physician: Jerrod Stacy Consults: 10/31/16 17:21 Consult Physician Routine Consulting Provider: Leana Grayson Consult Reason/Comments: medical managment Do you want consulting provider notified?: Yes, Notify in am Primary care physician: Stated None - Discharge Diagnosis(es) (1) Diffuse large B-cell lymphoma of lymph nodes of multiple regions Current Visit: Yes Status: Chronic Priority: High (2) Anemia due to chemotherapy Current Visit: No Status: Chronic Priority: Medium Hospital Course: Mr Peralta is a very pleasant 51-year-old male patient who is very well-known to our service. He is being admitted for systemic treatment with R- EPOCH cycle #4. Patient was initially diagnosed in September 2014. He had an axillary node biopsied on 10/12/2014 revealing a low grade B-cell non-Hodgkin's lymphoma, felt to be consistent with follicular lymphoma. PET staging showed stage III disease. Patient was placed in observation as he was asymptomatic. In 2015 patient started having increased back pain and was found to have progressive virgie enlargement and right hydronephrosis. Patient was started on Rituxan and Bendeka, completing 5 cycles in June 2016. After 3 cycles imaging showed he had an excellent response and cycle #6 was ultimately omitted due to treatment toxicities. About 6 weeks later patient presented with increased pain and swelling in the right groin. 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 Patient is status post 3 cycles. During cycles 2 and 3 patient did have elevated LFTs and bilirubin, workup was negative for any obstruction, this did resolve after treatment. When patient was admitted for cycle #3 he did have the left anterior cervical lymph node enlargement, this was biopsied and consistent with patient's known lymphoma. Patient had severe scrotal and bilateral groin pain and swelling. He was evaluated by urology and treated for folliculitis, this is resolved. The patient had chemotherapy per protocol. He tolerated treatment quite well without any untoward side effects. A slow downward drift of hemoglobin was noted due to chemotherapy. However hemoglobin remained in the safe range and did not require supplementation. Interestingly, left lower cervical node enlargement was again seen on admission, but essentially disappeared as he progressed through chemotherapy. After compression of chemotherapy as the patient is clinically stable it was decided discharge him home. Procedures: High dose infusional chemotherapy Patient Condition at Discharge: Fair Plan - Discharge Summary New Discharge Prescriptions: Lactulose [Cephulac] 30 gm PO BID PRN #16 oz MDD 60 grams PRN Reason: Constipation Morphine Sulfate ER [Ms Contin 30Mg] 30 mg PO Q12HR #60 tab Sennosides-Docusate Sodium [Senokot-S] 1 tab PO BID #120 tablet Discharge Medication List Polyethylene Glycol 3350 [Miralax] 17 gm PO DAILY PRN #0 powd.pack 08/21/16 [Rx] Docusate [Colace] 100 mg PO BID #100 capsule 09/13/16 [Rx] Lactose-Reduced Food [Boost] 237 ml PO TID 09/19/16 [History] oxyCODONE-APAP 10-325MG [Percocet 10-325 mg] 1 tab PO Q6HR PRN #20 tab 10/07/16 [Rx] Prochlorperazine [Compazine] 10 mg PO Q6H PRN 10/09/16 [History] Lactulose [Cephulac] 30 gm PO BID PRN #16 oz MDD 60 grams 11/03/16 [Rx] Sennosides-Docusate Sodium [Senokot-S] 1 tab PO BID #120 tablet 11/03/16 [Rx] Morphine Sulfate ER [Ms Contin 30Mg] 30 mg PO Q12HR #60 tab 11/05/16 [Rx] Follow up Appointment(s)/Referral(s): Jerrod Stacy MD [STAFF PHYSICIAN] - 11/06/16 9:00 am (PT TO GO TO [facility] FOR NEULASTA INJECTION WHEN DISCHARGE) Activity/Diet/Wound Care/Special Instructions: Diet as tolerated Activity as tolerated Salt and soda oral rinse 4-5 times a day CBC at Dr. Stacy's office twice weekly Discharge Disposition: HOME SELF-CARE
--- NOTE | 2016-11-05 15:23 | PN ---
DATE OF SERVICE: 11/05/2016 This is a 51-year-old gentleman who was admitted with diffuse B-cell lymphoma, on chemotherapy. Patient is feeling much better. Patient has constipation. No chest pain, no palpitation, no fever. On exam, alert and oriented x3, pulse 57, blood pressure 140/57, respirations 16, temperature 97.8, pulse ox 97% on room air. HEENT: Conjunctivae normal. NECK: No jugular venous distension. CARDIOVASCULAR SYSTEM: S1, S2, muffled. RESPIRATORY: Breath sounds diminished at the bases. No rhonchi, no crackles. Abdomen is soft, nontender. NERVOUS SYSTEM: No focal deficits. LABS: WBC is 4.8, hemoglobin is 8.3. ASSESSMENT: 1. Diffuse B-cell lymphoma on active chemotherapy, cycle 4. 2. Anemia, normocytic secondary to chemotherapy. 3. Pneumonia, unlikely. 4. Chronic back pain and degenerative joint disease. 5. Allergic sinusitis. 6. Constipation. 7. Cervical lymphadenopathy history. 8. Mild hypoalbuminemia. 9. Mild protein calorie malnutrition. 10. FULL CODE. RECOMMENDATION: Recommend to continue with current medications, continue with symptomatic treatment. Continue with the constipation regimen. Follow with the primary physician and Dr. Stacy. The rest of the recommendations per Dr. Stacy. Further recommendations to follow.
== END 2016-11-05 13:26 | disposition home or self-care (01) | DRG 847 ==
LOC: 5ONC 12:22
PROVIDERS: ADMIT Internal Medicine Hematology & Oncology; ATTEND Internal Medicine Hematology & Oncology
DX: Z51.11 Encounter for antineoplastic chemotherapy (principal); C83.30 Diffuse large B-cell lymphoma, unspecified site; E44.1 Mild protein-calorie malnutrition; D64.81 Anemia due to antineoplastic chemotherapy; N13.30 Unspecified hydronephrosis; G89.29 Other chronic pain; I10 Essential (primary) hypertension; J30.9 Allergic rhinitis, unspecified; K59.00 Constipation, unspecified; M19.90 Unspecified osteoarthritis, unspecified site; T45.1X5A Adverse effect of antineoplastic and immunosuppressive drugs, initial encounter; Z82.49 Family history of ischemic heart disease and other diseases of the circulatory system; Z87.891 Personal history of nicotine dependence
CPT/HCPCS: 71020; 80048; 80053; 83880; 85025; 85027; 87040; 87086

== ENCOUNTER 2016-11-18 12:32 | Emergency (ER) | payer OTHER ==
[2016-11-18] MEDS ORDERED: ONDANSETRON 4 MG/2 ML VIAL IVP STA (12:53)
--- NOTE | 2016-11-18 12:54 | ED ---
General Adult HPI - General Chief complaint: Nausea/Vomiting/Diarrhea Stated complaint: dehydration, cancer pt Time Seen by Provider: 11/18/16 12:44 Source: patient, RN notes reviewed Mode of arrival: ambulatory Limitations: no limitations - History of Present Illness Initial comments: 51-year-old male with a past medical history of lymphoma currently under chemo treatment with Dr. Stacy presents to the emergency Department chief complaint of dehydration nausea vomiting. Patient states she's noticed some flushing of his skin. Patient also has had vomiting for the past few days. Patient states it just has some queasiness in the belly. Patient denies any diarrhea. Patient denies any fever. Patient has a cough cold runny nose. Patient states it is concerned because he just continued to vomit he started to feel dehydrated that he should be evaluated. Patient states he is not currently having any other symptoms at this time.Patient denies any recent fever, chills, shortness of breath, chest pain, back pain, numbness or tingling, dysuria or hematuria, constipation or diarrhea, headaches or visual changes, or any other current symptoms. - Related Data Home Medications Medication Instructions Recorded Confirmed Lactose-Reduced Food [Boost] 237 ml PO TID 09/19/16 11/18/16 Prochlorperazine [Compazine] 10 mg PO Q6H PRN 10/09/16 11/18/16 Previous Rx's Medication Instructions Recorded Polyethylene Glycol 3350 [Miralax] 17 gm PO DAILY PRN #0 powd.pack 08/21/16 oxyCODONE-APAP 10-325MG [Percocet 1 tab PO Q6HR PRN #20 tab 10/07/16 10-325 mg] Lactulose [Cephulac] 30 gm PO BID PRN #16 oz MDD 60 11/03/16 grams Morphine Sulfate ER [Ms Contin 30 mg PO Q12HR #60 tab 11/05/16 30Mg] Ciprofloxacin HCl [Cipro] 500 mg PO Q12HR #14 tablet 11/18/16 Metoclopramide HCl [Reglan] 10 mg PO Q8H #20 tablet 11/18/16 Allergies Allergy/AdvReac Type Severity Reaction Status Date / Time No Known Allergies Allergy Verified 11/18/16 12:56 Review of Systems ROS Statement: Those systems with pertinent positive or pertinent negative responses have been documented in the HPI. ROS Other: All systems not noted in ROS Statement are negative. 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 LYMPH NODE BX., mediport Additional Past Anesthesia/Blood Transfusion Reaction / Comment(s): HAS OCC BECOME COMBATIVE AFTER SX, AND YELLING AND SCREAMING Past Psychological History: No Psychological Hx Reported Additional Psychological History / Comment(s): Pt resides alone. He is independent. Smoking Status: Former smoker Past Alcohol Use History: None Reported Additional Past Alcohol Use History / Comment(s): SMOKED OFF AND ON WHEN IN 3RD -4TH AND 5TH GRADE THEN [place] AND DID'NT SMOKE AGAIN UNTIL HE WAS 18- SMOKED 1PPD.quit 08-01-. Past Drug Use History: None Reported - Past Family History Father Family Medical History: Diabetes Mellitus, Myocardial Infarction ([place]) Additional Family Medical History / Comment(s): ORGANIC BRAIN DISEASE. Father at the age of 68yrs. Mother Family Medical History: No Reported History Additional Family Medical History / Comment(s): HERNIA SX. MOM IS 83 AND VERY ACTIVE LIVES IN [place] AND STILL MOWS HER OWN GRASS. General Exam - General Exam Comments Initial Comments: General: The patient is awake and alert, in no distress, and does not appear acutely ill. Eye: Pupils are equal, round and reactive to light, extra-ocular movements are intact; there is normal conjunctiva bilaterally. No signs of icterus. Ears, nose, mouth and throat: There are dry mucous membranes. Neck: The neck is supple, there is no tenderness. Cardiovascular: There is a regular rate and rhythm. No murmur, rub or gallop is appreciated. Respiratory: Lungs are clear to auscultation, respirations are non-labored, breath sounds are equal. No wheezes, stridor, rales, or rhonchi. Gastrointestinal: Soft, non-distended, non-tender abdomen without masses or organomegaly noted. There is no rebound or guarding present. No CVA tenderness. Bowel sounds are unremarkable. Back: There is no tenderness to palpation in the midline. There is no obvious deformity. No rashes noted. Musculoskeletal: Normal ROM, no tenderness, There is no pedal edema. There is no calf tenderness or swelling. Sensation intact. Pulses equal bilaterally 2+. Neurological: CN II-XII intact, There are no obvious motor or sensory deficits. Coordination appears grossly intact. Speech is normal. Skin: Skin is warm and dry and no rashes or lesions are noted. Psychiatric: Cooperative, appropriate mood & affect, normal judgment. Limitations: no limitations Course Vital Signs 11/18/16 11/18/16 12:41 14:20 Temperature 96.6 F L 97.8 F Pulse Rate 84 74 Respiratory 16 16 Rate Blood Pressure 146/86 131/70 O2 Sat by Pulse 99 98 Oximetry EKG Findings - EKG Comments: EKG Findings:: normal sinus rhythm 68 bpm, normal axis, no atopy, no S-T depressions or elevations, Medical Decision Making - Medical Decision Making 51-year-old male presents to emergency room chief complaint of nausea vomiting. Patient's laboratory is reviewed that does show some dehydration. This time he was hydrated. Patient also has suspicion for UTI at this point he was started on Cipro. We did discuss follow-up with his doctor on Sunday we discussed return parameters. Patient was offered chest pain hospital but at this time he would like to go home. All discussions have been answered. He will be discharged. - Lab Data Result diagrams: 11/18/16 13:16 11/18/16 13:16 Lab Results 11/18/16 11/18/16 11/18/16 Range/Units 13:16 13:16 13:16 WBC 11.8 H (3.8-10.6) k/uL RBC 3.09 L (4.30-5.90) m/uL Hgb 8.7 L (13.0-17.5) gm/dL Hct 27.1 L (39.0-53.0) % MCV 87.5 (80.0-100.0) fL MCH 28.2 (25.0-35.0) pg MCHC 32.2 (31.0-37.0) g/dL RDW 15.9 H (11.5-15.5) % Plt Count 265 (150-450) k/uL Neutrophils % 89 % Lymphocytes % 3 % Monocytes % 6 % Eosinophils % 1 % Basophils % 0 % Neutrophils # 10.5 H (1.3-7.7) k/uL Lymphocytes # 0.3 L (1.0-4.8) k/uL Monocytes # 0.7 (0-1.0) k/uL Eosinophils # 0.1 (0-0.7) k/uL Basophils # 0.0 (0-0.2) k/uL Poikilocytosis Slight PT (9.0-12.0) sec INR (<1.1) APTT (22.0-30.0) sec Sodium 141 (137-145) mmol/L Potassium 3.4 L (3.5-5.1) mmol/L Chloride 96 L (98-107) mmol/L Carbon Dioxide 34 H (22-30) mmol/L Anion Gap 11 mmol/L BUN 9 (9-20) mg/dL Creatinine 0.70 (0.66-1.25) mg/dL Est GFR (MDRD) Af Amer >60 (>60 ml/min/1.73 sqM) Est GFR (MDRD) Non-Af >60 (>60 ml/min/1.73 sqM) Glucose 115 H (74-99) mg/dL Plasma Lactic Acid Taj (0.7-2.0) mmol/L Calcium 9.7 (8.4-10.2) mg/dL Total Bilirubin 1.2 (0.2-1.3) mg/dL AST 19 (17-59) U/L ALT 50 (21-72) U/L Alkaline Phosphatase 137 H (38-126) U/L Total Creatine Kinase <20 L (55-170) U/L CK-MB (CK-2) <0.2 (0.0-2.4) ng/mL CK-MB (CK-2) Rel Index Troponin I <0.012 (0.000-0.034) ng/mL Total Protein 5.9 L (6.3-8.2) g/dL Albumin 3.8 (3.5-5.0) g/dL Cortisol 25 ug/dL Urine Color Urine Appearance (Clear) Urine pH (5.0-8.0) Ur Specific Beaver (1.001-1.035) Urine Protein (Negative) Urine Glucose (UA) (Negative) Urine Ketones (Negative) Urine Blood (Negative) Urine Nitrate (Negative) Urine Bilirubin (Negative) Urine Urobilinogen (<2.0) mg/dL Ur Leukocyte Esterase (Negative) Amorphous Sediment (None) /hpf Urine Bacteria (None) /hpf Urine Mucus (None) /hpf Influenza Type A RNA (Not Detectd) Influenza Type B (PCR) (Not Detectd) 11/18/16 11/18/16 11/18/16 Range/Units 13:16 13:16 13:16 WBC (3.8-10.6) k/uL RBC (4.30-5.90) m/uL Hgb (13.0-17.5) gm/dL Hct (39.0-53.0) % MCV (80.0-100.0) fL MCH (25.0-35.0) pg MCHC (31.0-37.0) g/dL RDW (11.5-15.5) % Plt Count (150-450) k/uL Neutrophils % % Lymphocytes % % Monocytes % % Eosinophils % % Basophils % % Neutrophils # (1.3-7.7) k/uL Lymphocytes # (1.0-4.8) k/uL Monocytes # (0-1.0) k/uL Eosinophils # (0-0.7) k/uL Basophils # (0-0.2) k/uL Poikilocytosis PT 11.5 (9.0-12.0) sec INR 1.2 (<1.1) APTT 22.3 (22.0-30.0) sec Sodium (137-145) mmol/L Potassium (3.5-5.1) mmol/L Chloride (98-107) mmol/L Carbon Dioxide (22-30) mmol/L Anion Gap mmol/L BUN (9-20) mg/dL Creatinine (0.66-1.25) mg/dL Est GFR (MDRD) Af Amer (>60 ml/min/1.73 sqM) Est GFR (MDRD) Non-Af (>60 ml/min/1.73 sqM) Glucose (74-99) mg/dL Plasma Lactic Acid Taj 1.2 (0.7-2.0) mmol/L Calcium (8.4-10.2) mg/dL Total Bilirubin (0.2-1.3) mg/dL AST (17-59) U/L ALT (21-72) U/L Alkaline Phosphatase (38-126) U/L Total Creatine Kinase (55-170) U/L CK-MB (CK-2) (0.0-2.4) ng/mL CK-MB (CK-2) Rel Index Troponin I (0.000-0.034) ng/mL Total Protein (6.3-8.2) g/dL Albumin (3.5-5.0) g/dL Cortisol ug/dL Urine Color Urine Appearance (Clear) Urine pH (5.0-8.0) Ur Specific Beaver (1.001-1.035) Urine Protein (Negative) Urine Glucose (UA) (Negative) Urine Ketones (Negative) Urine Blood (Negative) Urine Nitrate (Negative) Urine Bilirubin (Negative) Urine Urobilinogen (<2.0) mg/dL Ur Leukocyte Esterase (Negative) Amorphous Sediment (None) /hpf Urine Bacteria (None) /hpf Urine Mucus (None) /hpf Influenza Type A RNA Not Detected (Not Detectd) Influenza Type B (PCR) Not Detected (Not Detectd) 11/18/16 Range/Units 14:45 WBC (3.8-10.6) k/uL RBC (4.30-5.90) m/uL Hgb (13.0-17.5) gm/dL Hct (39.0-53.0) % MCV (80.0-100.0) fL MCH (25.0-35.0) pg MCHC (31.0-37.0) g/dL RDW (11.5-15.5) % Plt Count (150-450) k/uL Neutrophils % % Lymphocytes % % Monocytes % % Eosinophils % % Basophils % % Neutrophils # (1.3-7.7) k/uL Lymphocytes # (1.0-4.8) k/uL Monocytes # (0-1.0) k/uL Eosinophils # (0-0.7) k/uL Basophils # (0-0.2) k/uL Poikilocytosis PT (9.0-12.0) sec INR (<1.1) APTT (22.0-30.0) sec Sodium (137-145) mmol/L Potassium (3.5-5.1) mmol/L Chloride (98-107) mmol/L Carbon Dioxide (22-30) mmol/L Anion Gap mmol/L BUN (9-20) mg/dL Creatinine (0.66-1.25) mg/dL Est GFR (MDRD) Af Amer (>60 ml/min/1.73 sqM) Est GFR (MDRD) Non-Af (>60 ml/min/1.73 sqM) Glucose (74-99) mg/dL Plasma Lactic Acid Taj (0.7-2.0) mmol/L Calcium (8.4-10.2) mg/dL Total Bilirubin (0.2-1.3) mg/dL AST (17-59) U/L ALT (21-72) U/L Alkaline Phosphatase (38-126) U/L Total Creatine Kinase (55-170) U/L CK-MB (CK-2) (0.0-2.4) ng/mL CK-MB (CK-2) Rel Index Troponin I (0.000-0.034) ng/mL Total Protein (6.3-8.2) g/dL Albumin (3.5-5.0) g/dL Cortisol ug/dL Urine Color Yellow Urine Appearance Turbid (Clear) Urine pH 7.0 (5.0-8.0) Ur Specific Beaver 1.012 (1.001-1.035) Urine Protein Trace H (Negative) Urine Glucose (UA) Negative (Negative) Urine Ketones 1+ H (Negative) Urine Blood Negative (Negative) Urine Nitrate Negative (Negative) Urine Bilirubin Negative (Negative) Urine Urobilinogen <2.0 (<2.0) mg/dL Ur Leukocyte Esterase Negative (Negative) Amorphous Sediment Rare H (None) /hpf Urine Bacteria Many H (None) /hpf Urine Mucus Rare H (None) /hpf Influenza Type A RNA (Not Detectd) Influenza Type B (PCR) (Not Detectd) - Radiology Data Radiology results: report reviewed, image reviewed Disposition Clinical Impression: UTI (urinary tract infection) Disposition: HOME SELF-CARE Condition: Stable Instructions: Urinary Tract Infection in Men (ED) Additional Instructions: Please use medication as discussed. Please follow up with family doctor if symptoms have not improved over the next two days. Please return to the emergency room if your symptoms increase or worsen or for any other concerns. Prescriptions: Ciprofloxacin HCl [Cipro] 500 mg PO Q12HR #14 tablet Metoclopramide HCl [Reglan] 10 mg PO Q8H #20 tablet Referrals: Onel Alberto DO [Primary Care Provider] - 1-2 days Time of Disposition: 15:30
[2016-11-18] MEDS: SODIUM CHLORIDE 0.9% 500 ML IV SCH ×3 (13:10→15:14)
[2016-11-18] MEDS: ACETAMINOPHEN TAB 325 MG TAB PO STA ×2 (13:10→13:15)
[2016-11-18 13:33] LABS: Basophils % (A) 0 %; CH 29.1; CHCM 33.4; Eosinophils # (A) 0.1 k/uL (0-0.7); Eosinophils % (A) 1 %; HCT 27.1 % (39.0-53.0); HDW 3.81; HGB 8.7 gm/dL (13.0-17.5); Luc # (Auto) 0.21; Luc % (Auto) 2; Lymphocytes # (A) 0.3 k/uL (1.0-4.8); Lymphocytes % (A) 3 %; MCH 28.2 pg (25.0-35.0); MCHC 32.2 g/dL (31.0-37.0); MCV 87.5 fL (80.0-100.0); Mean Platelet Volume 6.4; Monocytes # (A) 0.7 k/uL (0-1.0); Monocytes % (A) 6 %; Neutrophils # (A) 10.5 k/uL (1.3-7.7); Neutrophils % (A) 89 %; Poikilocytosis Slight; RBC 3.09 m/uL (4.30-5.90); RDW 15.9 % (11.5-15.5); WBC 11.8 k/uL (3.8-10.6); WBC (Perox) 12.59
[2016-11-18 13:42] LABS: INR 1.2 (<1.1); Partial Thromboplastin Time 22.3 sec (22.0-30.0); Prothrombin Time 11.5 sec (9.0-12.0)
[2016-11-18 13:44] LABS: ALT 50 U/L (21-72); AST 19 U/L (17-59); Alkaline Phosphatase 137 U/L (38-126); Anion Gap 11 mmol/L; Blood Urea Nitrogen 9 mg/dL (9-20); Calcium 9.7 mg/dL (8.4-10.2); Carbon Dioxide 34 mmol/L (22-30); Chloride 96 mmol/L (98-107); Glucose 115 mg/dL (74-99); Non-African American GFR(MDRD) >60 (>60 ml/min/1.73 sqM); Potassium 3.4 mmol/L (3.5-5.1); Sodium 141 mmol/L (137-145); Total Bilirubin 1.2 mg/dL (0.2-1.3); Total Protein 5.9 g/dL (6.3-8.2)
--- NOTE | 2016-11-18 13:49 | XR ---
EXAMINATION TYPE: XR chest 2V DATE OF EXAM: 11/18/2016 1:43 PM COMPARISON: 10/31/2016 HISTORY: Shortness of breath TECHNIQUE: Frontal and lateral views of the chest are obtained. FINDINGS: Scattered senescent parenchymal changes noted. Hyperinflation compatible with COPD. Right-sided Mediport catheter unchanged in position. No evidence for infiltrate. No evidence for atelectasis. Heart size is stable. Mediastinal structures are stable and grossly unremarkable. No evidence for hilar prominence. Degenerative changes dorsal spine. IMPRESSION: 1. No evidence for acute pulmonary disease.
[2016-11-18 13:57] LABS: Creatine Kinase <20 U/L (55-170)
[2016-11-18 14:11] LABS: Creatine Kinase MB <0.2 ng/mL (0.0-2.4); Troponin I <0.012 ng/mL (0.000-0.034)
[2016-11-18] MEDS ORDERED: HYDROmorphone 1 MG/ML 1 ML SYRINGE IVP STA ×2 (14:16→15:29)
--- NOTE | 2016-11-18 14:21 | XR ---
EXAMINATION TYPE: XR abdomen 2V DATE OF EXAM: 11/18/2016 2:14 PM COMPARISON: NONE HISTORY: Pain TECHNIQUE: Single supine KUB image of the abdomen is obtained FINDINGS: Small bowel demonstrates no evidence for dilatation or air fluid levels. Gas and fecal material is seen in non-distended colon. No convincing evidence for pneumoperitoneum. No unusual calcifications. The lung bases are clear. The osseous structures are intact. IMPRESSION: 1. Overall nonobstructive bowel gas pattern.
[2016-11-18 15:15] LABS: Amorphous Sediment,Urine Rare /hpf; Appearance,Urine Turbid (Clear); Bacteria,Urine Many /hpf; Bilirubin,Urine Negative (Negative); Glucose,Urine (UA) Negative (Negative); Ketones,Urine 1+ (Negative); Leukocyte Esterase,Urine Negative (Negative); Mucus,Urine Rare /hpf; Nitrite,Urine Negative (Negative); Particle Count 29968; Protein,Urine Trace (Negative); Specific Gravity,Urine 1.012 (1.001-1.035); UA Billing (MACRO vs. MICRO) MICRO; Urobilinogen,Urine <2.0 mg/dL (<2.0)
[2016-11-18] MEDS ORDERED: CIPROFLOXACIN HCL 500 MG TAB PO STA (15:29)
[2016-11-18 15:42] VITALS: BP 154/79; PULSE 69; RESP 18; TEMP 97.7
== END 2016-11-18 15:53 | disposition home or self-care (01) ==
LOC: EC 12:32
DX: N39.0 Urinary tract infection, site not specified (principal); R11.2 Nausea with vomiting, unspecified; C83.38 Diffuse large B-cell lymphoma, lymph nodes of multiple sites; Z92.21 Personal history of antineoplastic chemotherapy; Z87.891 Personal history of nicotine dependence; Z79.899 Other long term (current) drug therapy
CPT/HCPCS: 99284; 96374; 96375; 96376; 36415; 93005; 80053; 82533; 82550; 82553; 83605; 84484; 85025; 85610; 85730; 81001; 87040; 87086; 87502; 71020; 74020; J2405; J1170

== ENCOUNTER 2016-11-20 00:58 | Inpatient (IN) | payer OTHER ==
[2016-11-20] MEDS ORDERED: SODIUM CHLORIDE 0.9% 1,000 ML IV STA (01:22)
[2016-11-20] MEDS ORDERED: ONDANSETRON 4 MG/2 ML VIAL IVP STA (01:22)
--- NOTE | 2016-11-20 01:47 | ED ---
Nausea/Vomiting/Diarrhea HPI <River Clemente - Last Filed: 11/20/16 02:53> - General Source: patient, RN notes reviewed, old records reviewed Mode of arrival: ambulatory Limitations: no limitations <AshwinEstee - Last Filed: 11/20/16 03:28> - General Chief complaint: Nausea/Vomiting/Diarrhea Stated complaint: Vomiting,Shoulder Pain-Revisit Time Seen by Provider: 11/20/16 01:08 - History of Present Illness Initial comments: Patient is a 51-year-old male with past medical history of lymphoma currently undergoing cream O treatment with Dr. toribio presents to the ED with chief complaint of dehydration, nausea vomiting and right shoulder pain. Patient reports that he's had vomiting for the past 4 days. He states that he feels extremely weak. He denies any diarrhea and states he had a normal bowel movement yesterday. He denies any fever. He denies any other upper respiratory symptoms. Patient reports that he was in the [facility] 1 day ago and was discharged with ciprofloxacin for urinary tract infection. Patient at that time was offered admission however he stated he wanted to go home. Patient reports that he has continued to vomit despite the discharge nausea medications. Patient reports that he does have a history of chronic back pain which seems to be exacerbated as well as that right shoulder and neck pain is chronic over his been much worse over the past day. He reports that it is a sharp pain in nature whenever it occurs. (Estee Christopher) - Related Data Home Medications Medication Instructions Recorded Confirmed Lactose-Reduced Food [Boost] 237 ml PO TID 09/19/16 11/20/16 Prochlorperazine [Compazine] 10 mg PO Q6H PRN 10/09/16 11/20/16 Previous Rx's Medication Instructions Recorded Polyethylene Glycol 3350 [Miralax] 17 gm PO DAILY PRN #0 powd.pack 08/21/16 oxyCODONE-APAP 10-325MG [Percocet 1 tab PO Q6HR PRN #20 tab 10/07/16 10-325 mg] Lactulose [Cephulac] 30 gm PO BID PRN #16 oz MDD 60 11/03/16 grams Morphine Sulfate ER [Ms Contin 30 mg PO Q12HR #60 tab 11/05/16 30Mg] Ciprofloxacin HCl [Cipro] 500 mg PO Q12HR #14 tablet 11/18/16 Metoclopramide HCl [Reglan] 10 mg PO Q8H #20 tablet 11/18/16 oxyCODONE-APAP 10-325MG [Percocet 1 tab PO Q6HR PRN #3 tab 11/18/16 10-325 mg] Allergies Allergy/AdvReac Type Severity Reaction Status Date / Time No Known Allergies Allergy Verified 11/20/16 01:06 Review of Systems ROS Other: All systems not noted in ROS Statement are negative. <River Clemente - Last Filed: 11/20/16 02:53> ROS Other: All systems not noted in ROS Statement are negative. <Estee Christopher - Last Filed: 11/20/16 03:28> ROS Statement: Those systems with pertinent positive or pertinent negative responses have been documented in the HPI. 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 LYMPH NODE BX., mediport Additional Past Anesthesia/Blood Transfusion Reaction / Comment(s): HAS OCC BECOME COMBATIVE AFTER SX, AND YELLING AND SCREAMING Past Psychological History: No Psychological Hx Reported Additional Psychological History / Comment(s): Pt resides alone. He is independent. Smoking Status: Former smoker Past Alcohol Use History: None Reported Additional Past Alcohol Use History / Comment(s): SMOKED OFF AND ON WHEN IN 3RD -4TH AND 5TH GRADE THEN [place] AND DID'NT SMOKE AGAIN UNTIL HE WAS 18- SMOKED 1PPD.quit 08-01-. Past Drug Use History: None Reported - Past Family History Father Family Medical History: Diabetes Mellitus, Myocardial Infarction ([place]) Additional Family Medical History / Comment(s): ORGANIC BRAIN DISEASE. Father at the age of 68yrs. Mother Family Medical History: No Reported History Additional Family Medical History / Comment(s): HERNIA SX. MOM IS 83 AND VERY ACTIVE LIVES IN [place] AND STILL MOWS HER OWN GRASS. <Estee Christopher - Last Filed: 11/20/16 03:28> General Exam <River Clemente - Last Filed: 11/20/16 02:53> Limitations: no limitations General appearance: alert, in no apparent distress Head exam: Present: atraumatic, normocephalic, normal inspection Eye exam: Present: normal appearance, PERRL, EOMI. Absent: scleral icterus, conjunctival injection, periorbital swelling ENT exam: Present: normal exam, mucous membranes moist Neck exam: Present: normal inspection. Absent: tenderness, meningismus, lymphadenopathy Respiratory exam: Present: normal lung sounds bilaterally. Absent: respiratory distress, wheezes, rales, rhonchi, stridor Cardiovascular Exam: Present: regular rate, normal rhythm, normal heart sounds. Absent: systolic murmur, diastolic murmur, rubs, gallop, clicks GI/Abdominal exam: Present: soft, normal bowel sounds. Absent: distended, tenderness, guarding, rebound, rigid Extremities exam: Present: normal inspection, full ROM, normal capillary refill. Absent: tenderness, pedal edema, joint swelling, calf tenderness Back exam: Present: normal inspection Neurological exam: Present: alert, oriented X3, CN II-XII intact Psychiatric exam: Present: normal affect, normal mood Skin exam: Present: warm, dry, intact, normal color. Absent: rash <Estee Christopher - Last Filed: 11/20/16 03:28> - General Exam Comments Initial Comments: is a pleasant 51-year-old male. He does not appear to be under any acute distress at this time. He does appear to be slightly lethargic. Patient is awake and alert and in no distress. (Estee Christopher) Course <River Clemente - Last Filed: 11/20/16 02:53> <Estee Christopher - Last Filed: 11/20/16 03:28> Vital Signs 11/20/16 01:01 Temperature 98.5 F Pulse Rate 100 Respiratory 18 Rate Blood Pressure 172/109 O2 Sat by Pulse 98 Oximetry - Reevaluation(s) Reevaluation #1: 11/20/16 02:53 I did personally do a [id number] evaluation the patient did discuss the findings with him. Patient does radiate be dehydrated. He's had nausea vomiting decreased oral intake for at least a week. This is his repeat visit. He is hypokalemic. He will be admitted for IV hydration and electrolyte replacement. (River Clemente) Medical Decision Making - Lab Data Result diagrams: 11/20/16 01:55 11/20/16 01:55 <BrynRiver - Last Filed: 11/20/16 02:53> - Lab Data Result diagrams: 11/20/16 01:55 11/20/16 01:55 - Radiology Data Radiology results: report reviewed <Estee Christopher - Last Filed: 11/20/16 03:28> - Medical Decision Making She is a 51-year-old male with history of lymphoma undergoing chemo treatment with 4 days of a retractable nausea and vomiting. Patient reports that he does seem to be dehydrated. He was seen in the 2 days ago and was diagnosed with a urinary tract infectionand started on Cipro. Patient's port was accessed and labs are obtained. Patient did have a negative influenza screen 1 day ago. Patient will be given IV potassium replacement X2. Patient RBC are slightly elevated from yesterday at 3.59, WBC are also elevated at 12.6. Patient given IV dilaudid, and is resting comfortably. Patient will be admitted to Dr. Benoit and Dr. Stacy will be contacted. Patients cardiac enzymes are unchanged from yesterday. Patient will continue IV hydration and nausea medication. CXR AND kub show no acute abnormalities. (Estee Christopher) - Lab Data Lab Results 11/20/16 11/20/16 11/20/16 Range/Units 01:55 01:55 01:55 WBC 12.6 H (3.8-10.6) k/uL RBC 3.59 L (4.30-5.90) m/uL Hgb 10.5 L (13.0-17.5) gm/dL Hct 31.7 L (39.0-53.0) % MCV 88.2 (80.0-100.0) fL MCH 29.1 (25.0-35.0) pg MCHC 33.0 (31.0-37.0) g/dL RDW 15.9 H (11.5-15.5) % Plt Count 264 (150-450) k/uL Neutrophils % 92 % Lymphocytes % 3 % Monocytes % 4 % Eosinophils % 0 % Basophils % 0 % Neutrophils # 11.5 H (1.3-7.7) k/uL Lymphocytes # 0.3 L (1.0-4.8) k/uL Monocytes # 0.5 (0-1.0) k/uL Eosinophils # 0.0 (0-0.7) k/uL Basophils # 0.0 (0-0.2) k/uL Hypochromasia Slight Poikilocytosis Slight PT (9.0-12.0) sec INR (<1.1) APTT (22.0-30.0) sec Sodium 141 (137-145) mmol/L Potassium 3.1 L (3.5-5.1) mmol/L Chloride 101 (98-107) mmol/L Carbon Dioxide 28 (22-30) mmol/L Anion Gap 12 mmol/L BUN 7 L (9-20) mg/dL Creatinine 0.70 (0.66-1.25) mg/dL Est GFR (MDRD) Af Amer >60 (>60 ml/min/1.73 sqM) Est GFR (MDRD) Non-Af >60 (>60 ml/min/1.73 sqM) Glucose 102 H (74-99) mg/dL Plasma Lactic Acid Taj (0.7-2.0) mmol/L Calcium 8.8 (8.4-10.2) mg/dL Magnesium (1.6-2.3) mg/dL Total Bilirubin 1.2 (0.2-1.3) mg/dL AST 17 (17-59) U/L ALT 42 (21-72) U/L Alkaline Phosphatase 128 H (38-126) U/L Total Creatine Kinase <20 L (55-170) U/L CK-MB (CK-2) <0.2 (0.0-2.4) ng/mL CK-MB (CK-2) Rel Index Troponin I <0.012 (0.000-0.034) ng/mL Total Protein 5.6 L (6.3-8.2) g/dL Albumin 3.6 (3.5-5.0) g/dL Amylase <30 L (30-110) U/L Lipase <10 L (23-300) U/L 11/20/16 11/20/16 11/20/16 Range/Units 01:55 01:55 01:55 WBC (3.8-10.6) k/uL RBC (4.30-5.90) m/uL Hgb (13.0-17.5) gm/dL Hct (39.0-53.0) % MCV (80.0-100.0) fL MCH (25.0-35.0) pg MCHC (31.0-37.0) g/dL RDW (11.5-15.5) % Plt Count (150-450) k/uL Neutrophils % % Lymphocytes % % Monocytes % % Eosinophils % % Basophils % % Neutrophils # (1.3-7.7) k/uL Lymphocytes # (1.0-4.8) k/uL Monocytes # (0-1.0) k/uL Eosinophils # (0-0.7) k/uL Basophils # (0-0.2) k/uL Hypochromasia Poikilocytosis PT 13.1 H (9.0-12.0) sec INR 1.3 (<1.1) APTT 22.8 (22.0-30.0) sec Sodium (137-145) mmol/L Potassium (3.5-5.1) mmol/L Chloride (98-107) mmol/L Carbon Dioxide (22-30) mmol/L Anion Gap mmol/L BUN (9-20) mg/dL Creatinine (0.66-1.25) mg/dL Est GFR (MDRD) Af Amer (>60 ml/min/1.73 sqM) Est GFR (MDRD) Non-Af (>60 ml/min/1.73 sqM) Glucose (74-99) mg/dL Plasma Lactic Acid Taj 0.9 (0.7-2.0) mmol/L Calcium (8.4-10.2) mg/dL Magnesium 1.9 (1.6-2.3) mg/dL Total Bilirubin (0.2-1.3) mg/dL AST (17-59) U/L ALT (21-72) U/L Alkaline Phosphatase (38-126) U/L Total Creatine Kinase (55-170) U/L CK-MB (CK-2) (0.0-2.4) ng/mL CK-MB (CK-2) Rel Index Troponin I (0.000-0.034) ng/mL Total Protein (6.3-8.2) g/dL Albumin (3.5-5.0) g/dL Amylase (30-110) U/L Lipase (23-300) U/L 11/20/16 01:46 EKG shows normal sinus rhythm. Ventricular rate 60 bpm. VA interval 142 ms. QRS duration 86seconds. QT/QTc is 408/433 ms. No evidence of ST elevation or T -wave inversion. (Estee Christopher) - Radiology Data Chest x-ray shows no acute process. No significant interval change. KUB shows no evidence of bowel obstruction. (Estee Christopher) Disposition <River Clemente - Last Filed: 11/20/16 02:53> Time of Disposition: 03:28 <Estee Christopher - Last Filed: 11/20/16 03:28> Clinical Impression: Hypokalemia, Diffuse large B-cell lymphoma of lymph nodes of multiple regions, Nausea & vomiting, Weakness, Dehydration Disposition: ADMITTED IP TO THIS HOSP Condition: Stable
[2016-11-20] MEDS: HYDROmorphone 1 MG/ML 1 ML SYRINGE IVP STA ×2 (02:03→02:56)
[2016-11-20] MEDS: SODIUM CHLORIDE 0.9% 1,000 ML IV STA ×2 (02:06→05:58)
[2016-11-20 02:22] LABS: Basophils % (A) 0 %; CH 29.1; CHCM 33.2; Eosinophils % (A) 0 %; HCT 31.7 % (39.0-53.0); HDW 3.77; HGB 10.5 gm/dL (13.0-17.5); Hypochromasia Slight; Luc # (Auto) 0.16; Luc % (Auto) 1; Lymphocytes # (A) 0.3 k/uL (1.0-4.8); Lymphocytes % (A) 3 %; MCH 29.1 pg (25.0-35.0); MCV 88.2 fL (80.0-100.0); Mean Platelet Volume 6.6; Monocytes # (A) 0.5 k/uL (0-1.0); Monocytes % (A) 4 %; Neutrophils # (A) 11.5 k/uL (1.3-7.7); Neutrophils % (A) 92 %; Poikilocytosis Slight; RBC 3.59 m/uL (4.30-5.90); RDW 15.9 % (11.5-15.5); WBC 12.6 k/uL (3.8-10.6); WBC (Perox) 13.55
[2016-11-20 02:26] LABS: ALT 42 U/L (21-72); AST 17 U/L (17-59); Alkaline Phosphatase 128 U/L (38-126); Amylase <30 U/L (30-110); Anion Gap 12 mmol/L; Blood Urea Nitrogen 7 mg/dL (9-20); Calcium 8.8 mg/dL (8.4-10.2); Carbon Dioxide 28 mmol/L (22-30); Chloride 101 mmol/L (98-107); Glucose 102 mg/dL (74-99); Non-African American GFR(MDRD) >60 (>60 ml/min/1.73 sqM); Potassium 3.1 mmol/L (3.5-5.1); Sodium 141 mmol/L (137-145); Total Bilirubin 1.2 mg/dL (0.2-1.3); Total Protein 5.6 g/dL (6.3-8.2)
[2016-11-20 02:27] LABS: INR 1.3 (<1.1); Partial Thromboplastin Time 22.8 sec (22.0-30.0); Prothrombin Time 13.1 sec (9.0-12.0)
[2016-11-20 02:38] LABS: Creatine Kinase <20 U/L (55-170)
[2016-11-20 02:51] LABS: Creatine Kinase MB <0.2 ng/mL (0.0-2.4); Troponin I <0.012 ng/mL (0.000-0.034)
[2016-11-20] MEDS ORDERED: ACETAMINOPHEN TAB 325 MG TAB PO PRN (03:03)
[2016-11-20] MEDS ORDERED: IBUPROFEN 400 MG TAB PO PRN (03:03)
[2016-11-20] MEDS ORDERED: NALOXONE 0.4 MG/ML 1 ML VIAL IV PRN (03:03)
--- NOTE | 2016-11-20 03:06 | XR ---
EXAMINATION TYPE: XR chest 1V DATE OF EXAM: 11/20/2016 2:40 AM COMPARISON: 11/18/2016 HISTORY: Weakness the not feeling well currently on chemotherapy for lymphoma TECHNIQUE: Single frontal view of the chest is obtained. FINDINGS: Right-sided jugular Mediport catheter is noted in place. Chronic interstitial lung changes are suggested bilaterally. There is no focal air space opacity, pleural effusion, or pneumothorax seen. The cardiac silhouette size is within normal limits. The osseous structures are intact. IMPRESSION: 1. No acute process. 2. No significant interval change.
--- NOTE | 2016-11-20 03:09 | XR ---
EXAMINATION TYPE: XR KUB DATE OF EXAM: 11/20/2016 2:40 AM CLINICAL HISTORY: Nausea and weakness, does not feel well, currently on chemotherapy for lymphoma. TECHNIQUE: 2 frontal upright radiographs of abdomen were obtained. COMPARISON: 11/18/2016 FINDINGS: There is no significant interval change. Scattered gas is seen in non-distended small bowel loops. Gas and fecal material is seen in non-dist ended colon. There is no visceromegaly, pneumoperitoneum, or abnormal calcification appreciated. T he lung bases are clear and the osseous structures are intact. IMPRESSION: No bowel obstruction is noted.
[2016-11-20] MEDS ORDERED: SODIUM CHLORIDE 0.9% 1,000 ML IV SCH (03:15)
[2016-11-20] MEDS: POTASSIUM CHLORIDE 10 MEQ, LIDOCAINE 2% INJ 10 MG in SODIUM CHLORIDE 0.9% 100 ML IVPB SCH ×2 (03:55→05:20)
[2016-11-20] MEDS: HYDROmorphone 1 MG/ML 1 ML SYRINGE IV PRN ×5 (05:52→21:49)
[2016-11-20] MEDS: PANTOPRAZOLE 40 MG/10 ML VIAL IV SCH (08:38)
[2016-11-20] MEDS: LORazepam 2 MG/ML SYRINGE IV PRN (09:36)
[2016-11-20] MEDS ORDERED: LACTULOSE 20 GM/30 ML CUP PO PRN (11:16)
[2016-11-20] MEDS ORDERED: POLYETHYLENE GLYCOL 3350 17 GM POWD.PACK PO PRN (11:16)
[2016-11-20] MEDS ORDERED: HYDROcodone/APAP 5-325MG 1 EACH TAB PO PRN (11:26)
[2016-11-20] MEDS ORDERED: METOCLOPRAMIDE 10 MG TAB PO SCH (11:30)
[2016-11-20] MEDS: 0.9% NACL WITH KCL 20 MEQ/L 1,000 ML IV SCH ×2 (11:46→21:31)
[2016-11-20] MEDS: FLUCONAZOLE 100 MG TAB PO SCH (11:49)
[2016-11-20] MEDS: ONDANSETRON 4 MG/2 ML VIAL IVP PRN ×2 (12:04→21:48)
[2016-11-20] MEDS: MORPHINE SULFATE ER 30 MG TABLET PO SCH ×2 (12:05→21:32)
[2016-11-20 14:39] LABS: Appearance,Urine Clear (Clear); Bilirubin,Urine Negative (Negative); Glucose,Urine (UA) Negative (Negative); Ketones,Urine 2+ (Negative); Leukocyte Esterase,Urine Negative (Negative); Nitrite,Urine Negative (Negative); Protein,Urine Negative (Negative); Specific Gravity,Urine 1.015 (1.001-1.035); UA Billing (MACRO vs. MICRO) CHEM; Urobilinogen,Urine <2.0 mg/dL (<2.0)
[2016-11-20] MEDS ORDERED: NON-FORMULARY DRUG (Lactose-Reduced Food [Boost] 237 ML) PO SCH (16:00)
--- NOTE | 2016-11-20 18:27 | HP ---
DATE OF ADMISSION: CHIEF COMPLAINT: Nausea, vomiting and pain. HISTORY OF PRESENT ILLNESS: Mr. Peralta is a 51-year-old male with known history of hypertension, osteoarthritis and large B-cell lymphoma, currently undergoing chemotherapy with Dr. Stacy. He came to the ER with complaints of nausea, vomiting and right shoulder pain which was happening for the past 4 days. Patient was recently seen in the ER for a possible urinary tract infection and was started on antibiotics in the form of ciprofloxacin. Otherwise, patient denied any diarrhea. Patient did have a normal bowel movement day before yesterday. Denied any fever or chills. No complaints of chest pain or shortness of breath. Patient also has hoarseness otherwise and possible thrush, for which patient was started on Diflucan. Patient denied any other problems. Patient is still complaining of pain and blood pressure is elevated, most likely due to pain itself. Patient's potassium is being replaced. Oncology is following this patient. Patient is scheduled for chemotherapy. Patient reports that he does have a history of chronic back pain as well as right shoulder pain and neck pain which is chronic and has been getting worse over the past one day due to intractable nausea and vomiting. REVIEW OF SYSTEMS: CONSTITUTIONAL: No fever. No chills. Patient does have generalized weakness and malaise. RESPIRATORY: No cough or sputum production. Patient does have hoarseness of the voice. CARDIOVASCULAR: No chest pain or shortness of breath. No leg swelling. ABDOMEN: Patient does have nausea and multiple episodes of vomiting and abdominal pain. No diarrhea. GENITOURINARY: No dysuria. No hematuria. ENDOCRINE: Negative. PSYCHIATRY: Negative. SKIN: Negative. MUSCULOSKELETAL: Negative. All other fourteen-point review of systems negative except as above. Past medical history includes: 1. Diffuse large B-cell lymphoma involving multiple lymph node lesions. 2. Hypertension. 3. Osteoarthritis. 4. Anemia, possibly chemo-induced. 5. Right inguinal hernia. PAST SURGICAL HISTORY: 1. Orthopedic surgery. 2. Shattered right heel and surgery to repair; had a plate. 3. Teeth extracted. 4. Laparoscopy with biopsy. 5. Lymph node biopsy. 6. Mediport placement. PSYCHOSOCIAL HISTORY: None. Patient is a former smoker; smoked off and on when in third, fourth and fifth grades, [place] until he was 18. Smoked 1 pack per day. Quit in July 2016. FAMILY HISTORY: Father had diabetes mellitus and [place]. Father at the age of 68 years. Mother has no reported history; hernia surgery. ALLERGIES: NO KNOWN DRUG ALLERGIES. Home medications include: 1. Lactulose. 2. Compazine. 3. MiraLax. 4. Percocet. 5. Morphine sulfate. 6. Ciprofloxacin. 7. Metoclopramide. 8. Oxycodone. 9. Percocet 10. PHYSICAL EXAMINATION: Rbsen-pij-iduh-old male lying in the bed. Awake, alert, oriented x3. Appears to be in mild distress due to pain. VITALS: Blood pressure is 171/74. Pulse is 62, respiration 16, temperature afebrile, pulse ox 98% on room air. HEENT: Atraumatic, normocephalic. Neck is supple. No JVD. CVS EXAM: S1, S2 heard. No murmurs or gallop. LUNGS: Bilateral air entry is present. Diminished breath sounds bilaterally basally. Non-labored breathing. No wheezing. ABDOMEN: Soft, nontender. Bowel sounds are present. No guarding or rigidity. No palpable organomegaly. ASSOCIATE CREATIVE DIRECTOR: Awake, alert, oriented x3. Able to move all his extremities. No focal deficit. EXTREMITIES: No edema. Pulses palpable bilaterally. No clubbing or cyanosis. PSYCHIATRIC: Cooperative. LABORATORY DATA: WBC 12.6, hemoglobin 10.5, platelets 264. INR 1.3. Sodium 141, potassium 3.1, chloride 101. Bicarb is 28. BUN 7, creatinine 0.7. Blood sugar is 102. Alkaline phosphatase is 128. Amylase and lipase not elevated. UA does not show infection. Urine culture has no growth in the last 18 hours. IMPRESSION: 1. Intractable nausea and vomiting, possibly chemo-induced. 2. Dehydration and weakness, possibly secondary to above. 3. Oral thrush. 4. Hoarseness of the voice. 5. Diffuse large B-cell lymphoma with multiple lymph node involvement. Currently undergoing chemotherapy under Dr. Stacy. 6. Hypertension, uncontrolled, most likely secondary to pain. 7. Hypokalemia. Will continue to replace potassium. 8. Right shoulder pain and neck pain. 9. Deep venous thrombosis prophylaxis. PLAN: Patient will be continued on his ( ) IV fluids until symptomatic management for nausea and vomiting and continue the pain management with Dilaudid IV as well as morphine sulfate ER 30 mg p.o. q.12 hours. Continue to follow closely. Will continue the PP IV and will start on diet and advance as tolerated. Further recommendations based on the clinical course.
--- NOTE | 2016-11-20 19:56 | P.CONS ---
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 He is due for cycle #4 of R-EPOCH next week but it is going to be delays a few days due to planned vacation. Pt states that he ate out on Sunday and later that evening he started having nausea and vomiting, he came to the ER and was evaluated. He had suspect UTI, influenza was negative. He was prescribed abx and was sent home. The abx irritated his stomach so he only took 1 dose. His nausea and vomiting persisted so he came to ER, was found to be hypokalemic and dehydrated so he is admitted for treatment. He denies fevers, oral irritation,SOB, cough, mild gastric irritation from vomiting but he denies hematemesis, no dysuria, hematuria, diarrhea or constipation, pain is well controlled, he is fully ambulatory, he is tolerating some liquids this AM. Review of Systems All systems: negative Constitutional: Reports as per HPI Past Medical History Past Medical History: Cancer, Hypertension, Osteoarthritis (OA) Additional Past Medical History / Comment(s): Diffuse large B cell Lymphoma of lymph nodes-multiple regions, elevated LFTs, right lower quadrant abdominal pain intermittently, chemo induced anemia per pt, right inguinal hernia History of Any Multi-Drug Resistant Organisms: None Reported Past Surgical History: Orthopedic Surgery Additional Past Surgical History / Comment(s): SHATTERED RT HEEL-SX TO REPAIR- HAS PLATE, TEETH EXTRACTED , laparoscopy w/ bx. LYMPH NODE BX., mediport Additional Past Anesthesia/Blood Transfusion Reaction / Comm: HAS OCC BECOME COMBATIVE AFTER SX, AND YELLING AND SCREAMING Past Psychological History: No Psychological Hx Reported Additional Psychological History / Comment(s): Pt resides alone. He is independent. Smoking Status: Former smoker Past Alcohol Use History: None Reported Additional Past Alcohol Use History / Comment(s): SMOKED OFF AND ON WHEN IN 3RD -4TH AND 5TH GRADE [place] AND DID'NT SMOKE AGAIN UNTIL HE WAS 18- SMOKED 1PPD.quit 08-01-16. Past Drug Use History: None Reported - Past Family History Father Family Medical History: Diabetes Mellitus, Myocardial Infarction ([place]) Additional Family Medical History / Comment(s): ORGANIC BRAIN DISEASE. Father at the age of 68yrs. Mother Family Medical History: No Reported History Additional Family Medical History / Comment(s): HERNIA SX. MOM IS 83 AND VERY ACTIVE LIVES IN [place] AND STILL MOWS HER OWN GRASS. Medications and Allergies Home Medications Medication Instructions Recorded Confirmed Type Lactose-Reduced Food [Boost] 237 ml PO TID 09/19/16 11/20/16 History Prochlorperazine [Compazine] 10 mg PO Q6H PRN 10/09/16 11/20/16 History Allergies Allergy/AdvReac Type Severity Reaction Status Date / Time No Known Allergies Allergy Verified 11/20/16 07:28 Physical Exam Vitals: Vital Signs Temp Pulse Pulse Resp BP BP Pulse Ox 11/20/16 16:00 61 16 11/20/16 14:38 98.8 F 61 16 168/80 98 11/20/16 08:00 59 L 16 11/20/16 07:00 98.6 F 59 L 16 176/74 100 11/20/16 04:58 97.8 F 62 16 171/74 98 11/20/16 03:59 62 18 155/80 97 11/20/16 03:00 97.6 F 88 18 138/78 98 Intake and Output 11/20/16 11/20/16 11/20/16 06:59 14:59 22:59 Intake Total 440 850 Output Total 300 300 Balance 440 550 -300 Intake: Intake, IV Titration 440 700 Amount 0.9% NaCl with KCl 20 Meq 100 200 /l 1,000 ml @ 100 mls/hr IV .Q10H [facility] Rx#: [id number] Potassium Chloride 10 meq 100 Lidocaine 2% Inj 10 mg In Sodium Chloride 0.9% 100 ml @ 100 mls/hr IVPB Q1HR [facility] Rx#:[id number] Sodium Chloride 0.9% 1, 240 000 ml @ 120 mls/hr IV . Q8H20M [facility] Rx#:[id number] Sodium Chloride 0.9% 1, 500 000 ml @ 999 mls/hr IV . Q1H1M [facility] Rx#:[id number] Oral 0 150 Output: Urine 300 300 Other: Voiding Method Toilet Toilet Toilet Urinal Urinal Urinal Weight 57.153 kg 57.153 kg Patient Weight 11/21/16 06:59 Weight 57.153 kg - Constitutional General appearance: average body habitus, cooperative, no acute distress - EENT Eyes: anicteric sclerae, PERRLA, normal appearance ENT: hearing grossly normal, thrush - Neck Neck: no lymphadenopathy - Respiratory Respiratory: bilateral: CTA - Cardiovascular Rhythm: regular Heart sounds: normal: S1, S2 Abnormal Heart Sounds: no systolic murmur, no diastolic murmur, no rub, no S3 Gallop, no S4 Gallop, no click, no other leg Peripheral Edema: bilateral: None - Gastrointestinal General gastrointestinal: no absent bowel sounds, no decreased bowel sounds, no distended, no hepatomegaly, no hyperactive bowel sounds, normal bowel sounds, no organomegaly, no rigid, no scaphoid, soft, no splenomegaly, no tenderness, no umbilical hernia, no ventral hernia - Neurologic Neurologic: CNII-XII intact - Musculoskeletal Musculoskeletal: strength equal bilaterally - Psychiatric Psychiatric: A&O x's 3, appropriate affect, intact judgment & insight Results CBC & Chem 7: 11/20/16 01:55 11/20/16 09:40 Labs: Abnormal Lab Results - Last 24 Hours (Table) 11/20/16 Range/Units 12:35 Urine Ketones 2+ H (Negative) Comments: reviewed lab/test results from pt ER visit over the weekend Chest x-ray: report reviewed Abdominal x-ray: report reviewed Assessment and Plan (1) Dehydration Narrative/Plan: Pt is feeling better with NS hydration, continue IV fluids until pt oral intake improved. Status: Acute (2) Hypokalemia Narrative/Plan: K+ has been added to IV fluids, pt has received IV potassium supplement. Status: Acute (3) Nausea & vomiting Narrative/Plan: Pt is several weeks out from from, in fact he will be due next week for next cycle but this is being delayed due to pt vacation. It is not felt that this episode of nausea and vomiting are chemo related. Pt states eating seafood the day that started getting sick, he also was on abx for suspected UTI. Influenza is negative. Continue current abx and supportive meds, will see how pt progresses over the next 24 hours. Status: Acute (4) Diffuse large B-cell lymphoma of lymph nodes of multiple regions Status: Chronic
[2016-11-21 02:26] LABS: Glucose,Whole Blood 98 mg/dL (75-99)
--- NOTE | 2016-11-21 02:45 | CT ---
EXAMINATION TYPE: CT brain wo con for TPA DATE OF EXAM: 11/21/2016 2:38 AM COMPARISON: NONE HISTORY: code stroke CT DLP: 1013.70 mGycm Automated exposure control for dose reduction was used. FINDINGS: There is slight prominence of the temporal horns of the lateral ventricles. There is no mass effect n or midline shift. There is no sign of intracranial hemorrhage. The calvarium is intact. I see no evid ence of cerebral edema. IMPRESSION: No acute intracranial abnormality. There is slight prominence of the temporal horns of the lateral ve ntricles consistent with minimal normal pressure type hydrocephalus.
[2016-11-21 03:24] LABS: CH 28.9; CHCM 32.3; HCT 30.9 % (39.0-53.0); HDW 3.76; Hypochromasia Slight; MCHC 32.3 g/dL (31.0-37.0); MCV 89.7 fL (80.0-100.0); Mean Platelet Volume 7.2; Poikilocytosis Slight; RBC 3.44 m/uL (4.30-5.90); RDW 15.7 % (11.5-15.5); WBC 12.6 k/uL (3.8-10.6)
[2016-11-21 03:30] LABS: INR 1.2 (<1.1); Partial Thromboplastin Time 22.2 sec (22.0-30.0); Prothrombin Time 12.2 sec (9.0-12.0)
[2016-11-21] MEDS: HYDROmorphone 1 MG/ML 1 ML SYRINGE IV PRN ×6 (03:36→19:26)
[2016-11-21 03:39] LABS: Anion Gap 11 mmol/L; Blood Urea Nitrogen 6 mg/dL (9-20); Carbon Dioxide 30 mmol/L (22-30); Chloride 101 mmol/L (98-107); Creatine Kinase <20 U/L (55-170); Glucose 107 mg/dL (74-99); Non-African American GFR(MDRD) >60 (>60 ml/min/1.73 sqM); Phosphorous 2.9 mg/dL (2.5-4.5); Potassium 3.8 mmol/L (3.5-5.1); Sodium 142 mmol/L (137-145)
[2016-11-21] MEDS ORDERED: Potassium Replacement Protocol 1 EACH MISC MISCELLANE PRN ×2 (04:18→18:49)
[2016-11-21] MEDS: POTASSIUM CHLORIDE 10 MEQ, LIDOCAINE 2% INJ 10 MG in SODIUM CHLORIDE 0.9% 100 ML IV SCH ×2 (04:44→06:27)
[2016-11-21] MEDS: 0.9% NACL WITH KCL 20 MEQ/L 1,000 ML IV SCH ×2 (06:27→17:04)
[2016-11-21] MEDS: ONDANSETRON 4 MG/2 ML VIAL IVP PRN ×2 (08:29→19:19)
[2016-11-21] MEDS: PANTOPRAZOLE 40 MG/10 ML VIAL IV SCH (08:32)
[2016-11-21] MEDS: FLUCONAZOLE 100 MG TAB PO SCH (08:34)
[2016-11-21] MEDS: MORPHINE SULFATE ER 30 MG TABLET PO SCH ×2 (08:36→21:56)
[2016-11-21] MEDS ORDERED: amLODIPine 5 MG TAB PO SCH (09:00)
[2016-11-21] MEDS ORDERED: PROCHLORPERAZINE SUPPOSITORY 25 MG SUPP RECTAL PRN ×2 (14:46→15:30)
[2016-11-21] MEDS ORDERED: SODIUM CHLORIDE 0.9% 1,000 ML IV ONE (15:03)
[2016-11-21] MEDS ORDERED: KETOROLAC 30 MG/ML 1 ML VIAL IVP PRN (15:29)
--- NOTE | 2016-11-21 15:38 | P.CNNES ---
History of Present Illness Consult date: 11/21/16 Reason for Consult: Patient being evaluated for acute stroke. History of Present Illness: This patient is a 51-year-old right-handed white male who was admitted to hospital for treatment of dehydration and recent chemotherapy. Patient has a history of large cell B-cell lymphoma and has been undergoing chemotherapy with Dr. Stacy. He came to the emergency room for symptoms of nausea vomiting. He is on multiple antibiotics at this time. Apparently at 2 AM the patient developed some facial weakness. A code stroke was initiated and he was sent for a computed tomography scan of the brain at 2 AM. CAT scan revealed no acute intracranial abnormality. The neurological interventionalist was contacted and his NIH stroke scale was noted to be 1.0. They did not recommend TPA for this patient and he was transferred to the intensive care unit early this morning. The patient has no previous history of TIA or stroke. As noted he was not felt to be a candidate for any TPA given his essentially normal neurological examination as was evaluated with the interventionalists yesterday. The patient is examined this morning in the intensive care unit. He is noted to have a left facial droop. On further evaluation his findings are consistent with an acute left Palma's palsy. 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 We did discuss this finding today with the patient in detail. We would recommend starting the patient on a Medrol Dosepak for further management. Case was discussed with the ICU nurse and she will conveyed this to Dr. Stacy as well. Patient has no evidence of acute stroke at this time. We will continue close neurological follow-up for the patient during this admission. Review of Systems Constitutional: Denies chills, Denies fever Eyes: denies blurred vision, denies pain Ears, nose, mouth and throat: Denies headache, Denies sore throat Cardiovascular: Denies chest pain, Denies shortness of breath Respiratory: Denies cough Gastrointestinal: Denies abdominal pain, Denies diarrhea, Denies nausea, Denies vomiting Musculoskeletal: Denies myalgias Integumentary: Denies pruritus, Denies rash Neurological: Reports change in speech, Reports confusion, Reports tingling, Denies numbness, Denies weakness Psychiatric: Denies anxiety, Denies depression Endocrine: Denies fatigue, Denies weight change Past Medical History Past Medical History: Cancer, Hypertension, Osteoarthritis (OA) Additional Past Medical History / Comment(s): Diffuse large B cell Lymphoma of lymph nodes-multiple regions, elevated LFTs, right lower quadrant abdominal pain intermittently, chemo induced anemia per pt, right inguinal hernia History of Any Multi-Drug Resistant Organisms: None Reported Past Surgical History: Orthopedic Surgery Additional Past Surgical History / Comment(s): SHATTERED RT HEEL-SX TO REPAIR- HAS PLATE, TEETH EXTRACTED , laparoscopy w/ bx. LYMPH NODE BX., mediport Additional Past Anesthesia/Blood Transfusion Reaction / Comment(s): HAS OCC BECOME COMBATIVE AFTER SX, AND YELLING AND SCREAMING Past Psychological History: No Psychological Hx Reported Additional Psychological History / Comment(s): Pt resides alone. He is independent. Smoking Status: Former smoker Past Alcohol Use History: None Reported Additional Past Alcohol Use History / Comment(s): SMOKED OFF AND ON WHEN IN 3RD -4TH AND 5TH GRADE [place] AND DID'NT SMOKE AGAIN UNTIL HE WAS 18- SMOKED 1PPD.quit 08-01-16. Past Drug Use History: None Reported - Past Family History Father Family Medical History: Diabetes Mellitus, Myocardial Infarction ([place]) Additional Family Medical History / Comment(s): ORGANIC BRAIN DISEASE. Father at the age of 68yrs. Mother Family Medical History: No Reported History Additional Family Medical History / Comment(s): HERNIA SX. MOM IS 83 AND VERY ACTIVE LIVES IN [place] AND STILL MOWS HER OWN GRASS. Medications and Allergies Home Medications Medication Instructions Recorded Confirmed Type Lactose-Reduced Food [Boost] 237 ml PO TID 09/19/16 11/20/16 History Prochlorperazine [Compazine] 10 mg PO Q6H PRN 10/09/16 11/20/16 History Allergies Allergy/AdvReac Type Severity Reaction Status Date / Time No Known Allergies Allergy Verified 11/20/16 07:28 Physical Examination - Vital Signs Vital Signs: Vital Signs Temp Pulse Pulse Resp BP BP Pulse Ox 11/21/16 09:00 60 10 L 160/77 96 11/21/16 08:50 61 16 160/77 99 11/21/16 08:40 56 L 8 L 160/77 96 11/21/16 08:30 60 16 175/84 96 11/21/16 08:20 101 H 16 175/84 99 11/21/16 08:10 98 16 175/84 100 11/21/16 08:00 59 L 16 175/84 100 11/21/16 07:50 62 13 160/78 100 11/21/16 07:40 63 11 L 160/78 100 11/21/16 07:30 60 10 L 160/89 100 11/21/16 07:20 61 9 L 170/98 100 11/21/16 07:10 72 16 170/98 100 11/21/16 07:00 59 L 9 L 196/96 100 11/21/16 06:50 60 9 L 191/96 100 11/21/16 06:40 60 8 L 191/96 100 11/21/16 06:30 59 L 11 L 191/101 100 11/21/16 06:20 61 10 L 197/98 100 11/21/16 06:10 60 15 197/98 100 11/21/16 06:00 59 L 64 12 187/92 175/88 100 11/21/16 05:50 54 L 12 178/88 100 11/21/16 05:45 59 L 16 187/85 100 11/21/16 05:40 70 11 L 208/111 100 11/21/16 05:30 58 L 10 L 185/94 184/90 100 11/21/16 05:20 62 25 H 185/93 100 11/21/16 05:15 64 18 192/98 100 11/21/16 05:10 59 L 22 185/93 100 11/21/16 05:00 60 64 13 192/90 192/94 100 11/21/16 04:59 64 16 192/94 100 11/21/16 04:50 58 L 9 L 164/94 100 11/21/16 04:44 62 18 170/85 100 11/21/16 04:40 60 13 164/94 100 11/21/16 04:30 59 L 19 176/85 100 11/21/16 04:29 59 L 16 164/94 100 11/21/16 04:20 57 L 11 L 177/93 100 11/21/16 04:14 59 L 18 176/85 100 11/21/16 04:10 58 L 13 177/93 100 11/21/16 04:00 97.1 F L 57 L 59 L 12 175/94 164/94 100 11/21/16 03:59 58 L 16 175/94 100 11/21/16 03:50 55 L 9 L 189/97 100 11/21/16 03:44 57 L 18 189/97 100 11/21/16 03:40 57 L 9 L 189/97 100 11/21/16 03:30 48 L 7 L 189/93 100 11/21/16 03:29 56 L 20 202/104 100 11/21/16 03:20 78 35 H 197/87 98 11/21/16 03:14 97.1 F L 46 L 18 198/102 100 11/21/16 03:10 62 23 197/87 100 11/21/16 03:05 57 L 13 202/91 100 11/21/16 03:00 20 11/21/16 02:45 52 L 18 184/105 100 11/21/16 02:30 67 16 185/103 99 11/21/16 02:20 65 18 181/95 100 11/21/16 02:10 75 20 181/99 100 11/20/16 22:42 98 F 54 L 16 166/79 94 L 11/20/16 16:00 61 16 11/20/16 14:38 98.8 F 61 16 168/80 98 Intake and Output 11/20/16 11/21/16 11/21/16 22:59 06:59 14:59 Intake Total 400 100 Output Total 400 400 400 Balance 0 -300 -400 Intake: IV 400 100 0.9% NaCl with KCl 20 Meq 400 100 /l 1,000 ml @ 100 mls/hr IV .Q10H [facility] Rx#: [id number] Output: Urine 400 400 400 Other: Voiding Method Toilet Indwelling Catheter Urinal Urinal Weight 57.153 kg 57.1 kg - Constitutional General appearance: average body habitus, cooperative - EENT EENT: mucous membranes moist - Respiratory Respiratory: lungs clear, normal breath sounds - Cardiovascular Cardiovascular: regular rate, normal S1, normal S2 Extremities: no peripheral edema bilaterally - Gastrointestinal Gastrointestinal: normoactive bowel sounds - Integumentary Integumentary: normal - Neurologic Cranial nerve examination: PERRL, EOMI, VFF, V1/V2/V3 grossly intact, face symmetric, tongue midline, intact gag reflex, intact corneal reflex, normal palatal elevation Speech examination: intact Sensorimotor examination: intact Detailed motor examination: grossly full strength in all extremities Motor examination - right side: 5/5: biceps, triceps, wrist flexion, wrist extension, supervisor refining, hip flexors, knee extensors, dorsiflexion, toe extension (EHL) , plantarflexion Motor examination - left side: 5/5: biceps, triceps, wrist flexion, wrist extension, supervisor refining, hip flexors, knee extensors, dorsiflexion, toe extension (EHL) , plantarflexion Detailed sensory examination: intact Reflex and gait examination: intact Reflexes: 1+: ankle, bicep, knee, tricep - Musculoskeletal Musculoskeletal: no pain - Psychiatric Psychiatric: mood/affect appropriate, cooperative Results - Laboratory Findings CBC and BMP: 11/21/16 03:00 11/21/16 03:00 Abnormal Lab Findings: Abnormal Labs 11/20/16 11/21/16 11/21/16 12:35 03:00 03:00 WBC 12.6 H RBC 3.44 L Hgb 10.0 L Hct 30.9 L RDW 15.7 H PT 12.2 H BUN Glucose Creatine Kinase Urine Ketones 2+ H 11/21/16 03:00 WBC RBC Hgb Hct RDW PT BUN 6 L Glucose 107 H Creatine Kinase <20 L Urine Ketones Assessment and Plan (1) Facial paralysis/Sandy palsy Status: Acute Code(s): G51.0 - PALMA'S PALSY (2) Diffuse large B-cell lymphoma of lymph nodes of multiple regions Status: Chronic Code(s): C83.38 - DIFFUSE LARGE B-CELL LYMPHOMA, LYMPH NODES OF MULTIPLE SITES Plan: Patient was examined today in the intensive care unit for acute stroke findings. His neurological examination reveals evidence of an acute idiopathic left-sided Palma's palsy. He was recommended to start on a course of steroids and will be transferred out of the ICU later today. He has no evidence of acute stroke based on his exam findings and computed tomography scan results. Patient may benefit from physical therapy evaluation for facial muscle exercises. He is at risk for Palma's palsy due to his immunosuppressed state. He is being treated for underlying lymphoma and will await further recommendations from Dr. Stacy in regards to his chemotherapy treatment plans. So overall prognosis at this time remains guarded. Time with Patient: Greater than 30
[2016-11-21] MEDS: LORazepam 2 MG/ML SYRINGE IV PRN (16:28)
[2016-11-21] MEDS ORDERED: KETOROLAC 30 MG/ML 1 ML VIAL IVP SCH (18:00)
--- NOTE | 2016-11-21 18:36 | P.PN ---
Subjective Principal diagnosis: nausea and vomiting Pt seen today in ICU, he lost function of the left side of his face last night, unable to close eye tightly, drools out the left side of his mouth if he drinks anything. He was worked up and is being seen by Neurology today. Pt has persistent nausea and he has lost his voice, he is achy. No fevers, chest pain , SOB, diarrhea or constipation. He is weak and tired. Objective - Vital Signs Vital signs: Vital Signs Temp 97.6 F 11/21/16 15:18 Pulse 79 11/21/16 16:24 Resp 22 11/21/16 16:24 BP 189/101 11/21/16 16:24 Pulse Ox 100 11/21/16 16:24 Intake & Output 11/20/16 11/21/16 11/21/16 18:59 06:59 18:59 Intake Total 850 500 100 Output Total 600 500 700 Balance 250 0 -600 Weight 57.153 kg 57.1 kg Intake: IV 500 100 0.9% NaCl with KCl 20 Meq 500 100 /l 1,000 ml @ 100 mls/hr IV .Q10H [facility] Rx#: [id number] Intake, IV Titration 700 Amount 0.9% NaCl with KCl 20 Meq 200 /l 1,000 ml @ 100 mls/hr IV .Q10H [facility] Rx#: [id number] Sodium Chloride 0.9% 1, 500 000 ml @ 999 mls/hr IV . Q1H1M [facility] Rx#:[id number] Oral 150 Output: Urine 600 500 700 Other: Voiding Method Toilet Indwelling Catheter Urinal Urinal - Constitutional General appearance: Present: average body habitus, cooperative - EENT ENT: Present: thrush (improved) - Neck Details: residual left anterior cervical lymphadenopathy - Respiratory Respiratory: bilateral: CTA - Cardiovascular Heart sounds: normal: S1, S2 - Peripheral edema leg Peripheral Edema: bilateral: None - Gastrointestinal General gastrointestinal: Present: normal bowel sounds, soft - Neurologic Neurologic Comment(s): Left facial features are flaccid/loss of tone, he cannot completely shut left eye, left side of mouth drooping. Bilateral upper and lower extremity strength are equal - Musculoskeletal Musculoskeletal: Present: strength equal bilaterally - Psychiatric Psychiatric: Present: A&O x's 3, appropriate affect, intact judgment & insight - Labs CBC & Chem 7: 11/21/16 03:00 02/07/17 03:00 Labs: Abnormal Lab Results - Last 24 Hours (Table) 11/21/16 11/21/16 11/21/16 Range/Units 03:00 03:00 03:00 WBC 12.6 H (3.8-10.6) k/uL RBC 3.44 L (4.30-5.90) m/uL Hgb 10.0 L (13.0-17.5) gm/dL Hct 30.9 L (39.0-53.0) % RDW 15.7 H (11.5-15.5) % PT 12.2 H (9.0-12.0) sec BUN 6 L (9-20) mg/dL Glucose 107 H (74-99) mg/dL Creatine Kinase <20 L (55-170) U/L - Imaging and Cardiology CT Scan - head: report reviewed Assessment and Plan (1) Dehydration Narrative/Plan: Pt currently on a regular diet, encouraging oral intake. Pt may need to be reduced to full liquid or soft foods due to persistent nausea and he may now need swallow evaluation to ensure no aspiration risk, will await Neurology eval. Status: Acute (2) Hypokalemia Narrative/Plan: K+ replaced, lab monitoring while inpatient Status: Acute (3) Nausea & vomiting Narrative/Plan: Persistent today, continue supportive care. Status: Acute (4) Diffuse large B-cell lymphoma of lymph nodes of multiple regions Narrative/Plan: Pt was going to delay next Treatment for 1 week due to a planned vacation but now he needs to recover from his current illness, highly suspect viral condition. Status: Chronic Plan: Dr. Stacy suspects Patel's Palsy vs stoke due to the presentation but, will await evaluation and recommendations from Neurology.
[2016-11-21] MEDS ORDERED: hydrALAZINE HCL 20 MG/ML 1 ML VIAL IVP STA (20:33)
[2016-11-21] MEDS: POTASSIUM CHLORIDE 10 MEQ in WATER FOR INJECTION 1 100ML.BAG IVPB SCH ×2 (20:55→21:57)
[2016-11-21] MEDS ORDERED: amLODIPine 5 MG TAB PO STA (21:06)
[2016-11-21] MEDS: SODIUM CHLORIDE 0.9% 1,000 ML IV SCH (22:00)
[2016-11-22] MEDS: HYDROmorphone 1 MG/ML 1 ML SYRINGE IV PRN ×2 (00:26→06:17)
[2016-11-22] MEDS: hydrALAZINE HCL 20 MG/ML 1 ML VIAL IVP PRN ×3 (00:36→08:30)
[2016-11-22] MEDS: SODIUM CHLORIDE 0.9% 1,000 ML IV SCH (00:38)
[2016-11-22] MEDS: LORazepam 2 MG/ML SYRINGE IV PRN (02:15)
[2016-11-22] MEDS: POTASSIUM CHLORIDE 10 MEQ in WATER FOR INJECTION 1 100ML.BAG IVPB SCH ×4 (02:16→10:02)
[2016-11-22 04:20] LABS: Glucose,Whole Blood 124 mg/dL (75-99)
[2016-11-22 04:41] LABS: Glucose,Whole Blood 113 mg/dL (75-99)
[2016-11-22] MEDS: LABETALOL SYRINGE 5 MG/ML IVP SCH ×3 (04:47→13:04)
--- NOTE | 2016-11-22 05:36 | PN ---
SUBJECTIVE DATA/HOSPITAL COURSE: This is a 51-year-old gentleman with history of diffuse large B-cell lymphoma currently undergoing chemotherapy status post third cycle with R-EPOCH regimen comes into the hospital with intractable nausea, vomiting, since his chemotherapy over 10 days ago. Patient apparently did receive a dose of steroids and has been receiving symptomatic treatment; however, patient stated that he has progressively gotten worse and was not able to tolerate it any longer., hence came into the ER for further evaluation. Initial evaluation, patient was noted to be hypokalemic and appeared to be dehydrated, which is consistent with poor oral intake and significant persistent emesis. Today, patient states to have significant pain in his neck and his shoulder. There appears to be some concern over patient repetitively asking pain medication; however, it appears that the patient is forgetful easily. No other complaints have been described by the patient. OBJECTIVE DATA: VITAL SIGNS: Pulse rate 61, temperature 98.8, respiratory rate 16, blood pressure is 155/80. GENERAL APPEARANCE: Alert and oriented x3. Does not appear to be in distress. FACE: There is a left-sided facial droop including a lid drag and loss of muscle tone on the forehead. Neck is supple. No JVD. RESPIRATORY EXAM: Good air entry. Clear to auscultation. No rhonchi or wheezing appreciated. HEART: S1, S2 heard, regular rate and rhythm. A slight systolic murmur is appreciated. ABDOMEN: Soft, nontender, no organomegaly. CRANIAL NERVES: No focal motor or sensory deficit noted. There appears to be a facial nerve palsy, which appears to be upper motor in nature as patient does have a lid lag and actions like frowning are depreciated. EXTREMITIES: No lower extremity edema. MUSCULOSKELETAL: No point tenderness noted along the spine. LABORATORY DATA: Hemoglobin 10.5, hematocrit 31.7, white count is 12.6, platelets are 264. Potassium is 3.8, sodium 142, 101, bicarb 30, BUN is 6 and creatinine of 0.70. ASSESSMENT AND PLAN: 1. Intractable nausea, vomiting, unknown etiology, question of recent chemotherapy. 2. Hypokalemia likely secondary to severe dehydration. 3. Starvation ketosis. 4. Chronic lower back pain. 5. Anemia of chronic disease. 6. Patel's palsy. 7. Hypertension that is slightly uncontrolled. 8. Severe protein calorie malnutrition from physical ( ). PLAN: Continue ongoing care. Patient will be treated with steroid therapy for the Patel's palsy. Symptomatic management for intractable nausea, vomiting. Oncology recommendations were noted. Patient's amlodipine will be increased to 10 mg. The patient's IV fluids will be decreased to 50 mL per hour. Repeat laboratory work in the morning. Pain control has been addressed. GI prophylaxis. Patient will also be started on Lovenox at this time.
[2016-11-22 05:49] LABS: Anisocytosis Slight; Basophils % (A) 0 %; CH 29.1; CHCM 33.5; Eosinophils # (A) 0.1 k/uL (0-0.7); Eosinophils % (A) 0 %; HDW 3.73; HGB 11.2 gm/dL (13.0-17.5); Luc # (Auto) 0.13; Luc % (Auto) 1; Lymphocytes # (A) 0.2 k/uL (1.0-4.8); Lymphocytes % (A) 1 %; MCH 27.9 pg (25.0-35.0); MCV 87.3 fL (80.0-100.0); Mean Platelet Volume 6.9; Monocytes # (A) 0.9 k/uL (0-1.0); Monocytes % (A) 3 %; Neutrophils # (A) 25.8 k/uL (1.3-7.7); Neutrophils % (A) 95 %; Poikilocytosis Slight; RBC 4.01 m/uL (4.30-5.90); RDW 16.2 % (11.5-15.5); WBC (Perox) 28.72
[2016-11-22 05:58] LABS: WBC 27.2 k/uL (3.8-10.6)
[2016-11-22 06:01] LABS: ALT 35 U/L (21-72); AST 22 U/L (17-59); Alkaline Phosphatase 156 U/L (38-126); Anion Gap 16 mmol/L; Blood Urea Nitrogen 4 mg/dL (9-20); Calcium 9.6 mg/dL (8.4-10.2); Carbon Dioxide 26 mmol/L (22-30); Chloride 90 mmol/L (98-107); Glucose 131 mg/dL (74-99); Non-African American GFR(MDRD) >60 (>60 ml/min/1.73 sqM); Potassium 3.7 mmol/L (3.5-5.1); Sodium 132 mmol/L (137-145); Total Bilirubin 1.6 mg/dL (0.2-1.3); Total Protein 6.8 g/dL (6.3-8.2)
[2016-11-22] MEDS: amLODIPine 10 MG TAB PO SCH (06:23)
[2016-11-22] MEDS: methylPREDNISolone SOD SUCCI 40 MG/ML 1 ML VIAL IV SCH (10:03)
[2016-11-22] MEDS: FLUCONAZOLE 100 MG TAB PO SCH (10:04)
[2016-11-22] MEDS: PANTOPRAZOLE 40 MG TABLET PO SCH (10:04)
[2016-11-22] MEDS: MORPHINE SULFATE ER 30 MG TABLET PO SCH (10:11)
[2016-11-22] MEDS: cloNIDine 0.2 MG/24HR PATCH 1 PATCH PATCH TRANSDERM SCH (11:57)
--- NOTE | 2016-11-22 12:33 | CONS ---
DATE OF CONSULTATION: CHIEF COMPLAINT: Uncontrolled hypertension. Gopal is a 51-year-old gentleman with history of hypertension, large B-cell lymphoma on chemotherapy by Dr. Stacy. Came to hospital complaining of nausea, vomiting and shoulder discomfort. He has been diagnosed with urinary tract infection and had recently been started on ciprofloxacin. I have been asked to see him because of elevated blood pressures. His blood pressures have been in the 170s systolic. I am going to start him on Catapres patch to optimally control his blood pressure. Past medical history is significant for diffuse large B-cell lymphoma, hypertension, anemia, right inguinal hernia. Past surgical history is significant for teeth extraction, lymph node biopsy, Mediport placement. ALLERGIES: There are no known drug allergies. MEDICATIONS: Include lactulose, Compazine, MiraLax, Percocet, morphine, Cipro, oxycodone and metoclopramide. Family history is negative for premature coronary artery disease. Social history is negative for smoking, EtOH abuse, or drug abuse. REVIEW OF SYSTEMS: HEENT is unremarkable. CARDIAC: As described above. RESPIRATORY: Negative. GENITOURINARY: Negative. ENDOCRINE: Negative. PSYCH: Negative. SKIN: Negative. MUSCULOSKELETAL: Negative, other than feeling fatigued and tired. On exam, patient is comfortable at rest. Blood pressure is elevated at 174/90, respiratory rate is 18. There is no jugular venous distention. Chest exam reveals good air entry bilaterally. Heart exam reveals first and second heart sounds. No gallop. No murmur. Abdomen is soft, nontender. Exam of the extremities did not reveal any edema. Peripheral pulses are felt. A detailed neurological exam was not done. Labs show a white cell count of 37, hemoglobin is 11.2. Potassium is 3.7. Creatinine is 0.5. ASSESSMENT: Uncontrolled hypertension. PLAN: I am going to treat with Catapres. Patient has multiple other problems. Family is going to have a conization with the oncologist and the primary care physician. I am going to see the patient on an as-needed basis at this time. Go up on the dose of the Catapres if you need to.
[2016-11-22] MEDS: LABETALOL 5 MG/ML VIAL MDV IVP SCH (17:19)
[2016-11-22] MEDS: ONDANSETRON 4 MG/2 ML VIAL IVP PRN (17:24)
--- NOTE | 2016-11-22 19:53 | P.PN ---
Subjective This patient is a 51-year-old right hand white male who has a history of diffuse large B-cell lymphoma. He has been undergoing chemotherapy and completed his third cycle of treatment. He was admitted to Hospital with symptoms of nausea and vomiting and electrolyte abnormalities. He was transferred to the intensive care unit with suspect of possible acute stroke. Neurology was consulted yesterday for further evaluation he had evidence of an acute Palma's palsy on examination. He was started on short course of oral steroids for further management. He is being followed by Dr. Stacy for treatment of the B-cell lymphoma. He was transferred to the cardiac floor as he had ongoing evidence of uncontrolled hypertension. He has been started on Catapres. There is been no other changes in his overall medical condition. Patient to continue treatment of underlying Palma's palsy. We will continue close neurological follow-up for the patient. Objective - Vital Signs Vital signs: Vital Signs Temp 98.1 F 11/22/16 04:50 Pulse 66 11/22/16 10:00 Resp 19 11/22/16 10:00 BP 174/91 11/22/16 10:00 Pulse Ox 99 11/22/16 10:00 Intake & Output 11/21/16 11/22/16 11/22/16 18:59 06:59 18:59 Intake Total 100 400 200 Output Total 700 500 800 Balance -600 -100 -600 Weight 53.3 kg Intake: IV 100 400 200 0.9% NaCl with KCl 20 Meq 100 /l 1,000 ml @ 100 mls/hr IV .Q10H [facility] Rx#: [id number] Potassium Chloride 10 meq 200 In Water For Injection 1 100ml.bag @ 100 mls/hr IVPB Q1H [facility] Rx#: [id number] Sodium Chloride 0.9% 1, 200 200 000 ml @ 50 mls/hr IV . Q20H [facility] Rx#:[id number] Output: Urine 700 500 800 Other: Voiding Method Urinal Urinal Urinal - Exam Physical examination: PHYSICAL EXAMINATION: Patient is resting comfortably in bed. VITAL SIGNS: Blood pressure is [174/91]. Heart rate is [65]. Respiration is [19] . Temperature is [98.1]. HEENT: Head is atraumatic, neck is supple, there were no carotid bruits. CHEST: Lungs are clear to auscultation and percussion. CARDIAC: S1, S2 normal rate and rhythm. There is no murmur. ABDOMEN: Soft and nontender. Bowel sounds are present. EXTREMITIES: There is no pedal edema. Peripheral pulses are present. Neurological examination: - Labs CBC & Chem 7: 11/22/16 05:40 11/22/16 05:40 Labs: Abnormal Lab Results - Last 24 Hours (Table) 11/22/16 11/22/16 11/22/16 Range/Units 04:18 04:39 05:40 WBC 27.2 H* (3.8-10.6) k/uL RBC 4.01 L (4.30-5.90) m/uL Hgb 11.2 L (13.0-17.5) gm/dL Hct 35.0 L (39.0-53.0) % RDW 16.2 H (11.5-15.5) % Neutrophils # 25.8 H (1.3-7.7) k/uL Lymphocytes # 0.2 L (1.0-4.8) k/uL Sodium (137-145) mmol/L Chloride (98-107) mmol/L BUN (9-20) mg/dL Creatinine (0.66-1.25) mg/dL Glucose (74-99) mg/dL POC Glucose (mg/dL) 124 H 113 H (75-99) mg/dL Total Bilirubin (0.2-1.3) mg/dL Alkaline Phosphatase (38-126) U/L 11/22/16 Range/Units 05:40 WBC (3.8-10.6) k/uL RBC (4.30-5.90) m/uL Hgb (13.0-17.5) gm/dL Hct (39.0-53.0) % RDW (11.5-15.5) % Neutrophils # (1.3-7.7) k/uL Lymphocytes # (1.0-4.8) k/uL Sodium 132 L (137-145) mmol/L Chloride 90 L (98-107) mmol/L BUN 4 L (9-20) mg/dL Creatinine 0.50 L (0.66-1.25) mg/dL Glucose 131 H (74-99) mg/dL POC Glucose (mg/dL) (75-99) mg/dL Total Bilirubin 1.6 H (0.2-1.3) mg/dL Alkaline Phosphatase 156 H (38-126) U/L Assessment and Plan (1) Facial paralysis/[place] palsy Status: Acute Code(s): G51.0 - PALMA'S PALSY (2) Diffuse large B-cell lymphoma of lymph nodes of multiple regions Status: Chronic Code(s): C83.38 - DIFFUSE LARGE B-CELL LYMPHOMA, LYMPH NODES OF MULTIPLE SITES Plan: Patient was examined today in the intensive care unit for acute stroke findings. His neurological examination reveals evidence of an acute idiopathic left-sided Palma's palsy. He was recommended to start on a course of steroids and will be transferred out of the ICU later today. He has no evidence of acute stroke based on his exam findings and computed tomography scan results. Patient may benefit from physical therapy evaluation for facial muscle exercises. He is at risk for Palma's palsy due to his immunosuppressed state. He is being treated for underlying lymphoma and will await further recommendations from Dr. Stacy in regards to his chemotherapy treatment plans. Continue treatment of underlying Palma's palsy. His overall prognosis at this time remains guarded. We will await further recommendations from oncology regarding long-term management of his B-cell lymphoma.
--- NOTE | 2016-11-22 20:14 | P.PN ---
Subjective Principal diagnosis: Dehydration. Diffuse large B cell NHL, on chemo THe pt was transferred to the floor but developed uncontrolled HTN and was transferred back to the ICU Objective - Vital Signs Vital signs: Vital Signs Temp 97.1 F L 11/22/16 16:52 Pulse 87 11/22/16 16:52 Resp 16 11/22/16 16:52 BP 153/82 11/22/16 16:52 Pulse Ox 98 11/22/16 16:52 Intake & Output 11/22/16 11/22/16 11/23/16 06:59 18:59 06:59 Intake Total 400 200 Output Total 500 1700 Balance -100 -1500 Weight 53.3 kg Intake: IV 400 200 Potassium Chloride 10 meq 200 In Water For Injection 1 100ml.bag @ 100 mls/hr IVPB Q1H [facility] Rx#: [id number] Sodium Chloride 0.9% 1, 200 200 000 ml @ 50 mls/hr IV . Q20H [facility] Rx#:[id number] Output: Urine 500 1700 Other: Voiding Method Urinal Urinal - Constitutional General appearance: Present: no acute distress - EENT EENT Comment(s): L Patel's palsy. Stable - Neck Thyroid: bilateral: normal size - Respiratory Respiratory: bilateral: CTA - Cardiovascular Rhythm: regular Heart sounds: normal: S1, S2 - Gastrointestinal General gastrointestinal: Present: normal bowel sounds, soft - Integumentary Integumentary: Present: normal - Neurologic Neurologic: Present: focal deficits (L Patel's palsy) - Musculoskeletal Musculoskeletal: Present: strength equal bilaterally - Psychiatric Psychiatric Comment(s): O x 3, but speech is not coherent Psychiatric: Present: A&O x's 3 - Labs CBC & Chem 7: 11/22/16 05:40 11/22/16 05:40 Labs: Abnormal Lab Results - Last 24 Hours (Table) 11/22/16 11/22/16 11/22/16 Range/Units 04:18 04:39 05:40 WBC 27.2 H* (3.8-10.6) k/uL RBC 4.01 L (4.30-5.90) m/uL Hgb 11.2 L (13.0-17.5) gm/dL Hct 35.0 L (39.0-53.0) % RDW 16.2 H (11.5-15.5) % Neutrophils # 25.8 H (1.3-7.7) k/uL Lymphocytes # 0.2 L (1.0-4.8) k/uL Sodium (137-145) mmol/L Chloride (98-107) mmol/L BUN (9-20) mg/dL Creatinine (0.66-1.25) mg/dL Glucose (74-99) mg/dL POC Glucose (mg/dL) 124 H 113 H (75-99) mg/dL Total Bilirubin (0.2-1.3) mg/dL Alkaline Phosphatase (38-126) U/L 11/22/16 Range/Units 05:40 WBC (3.8-10.6) k/uL RBC (4.30-5.90) m/uL Hgb (13.0-17.5) gm/dL Hct (39.0-53.0) % RDW (11.5-15.5) % Neutrophils # (1.3-7.7) k/uL Lymphocytes # (1.0-4.8) k/uL Sodium 132 L (137-145) mmol/L Chloride 90 L (98-107) mmol/L BUN 4 L (9-20) mg/dL Creatinine 0.50 L (0.66-1.25) mg/dL Glucose 131 H (74-99) mg/dL POC Glucose (mg/dL) (75-99) mg/dL Total Bilirubin 1.6 H (0.2-1.3) mg/dL Alkaline Phosphatase 156 H (38-126) U/L Assessment and Plan (1) Altered mental state Narrative/Plan: The pt was less responsive on the floor, and currently is not able to speak coherently, though he is O x 3. He has no new deficits. He is more alert this am. No fever noted. Thus an infectious cause or leptomeningeal lymphoma is unlikely. Case d/w IM. This is more likely to be due to the high BP and /or srteroid effect. Steroid dose was reduced. If alteration persists despite improved BP control, I will consider a LP Status: Acute (2) Facial paralysis/[place] palsy Narrative/Plan: Diagnosis confirmed by Neulrology. Defer to them for further management Status: Acute (3) Nausea & vomiting Narrative/Plan: Improved. Given developement of Patel's palsy, a virall illness is suspected Status: Acute SNOMED Code(s): 99720869 (4) Diffuse large B-cell lymphoma of lymph nodes of multiple regions Narrative/Plan: Chemotherapy was due to resume next week. We may need to delay depending on time for resolution of his current complaints Status: Chronic
--- NOTE | 2016-11-22 23:17 | PN ---
HOSPITAL COURSE: This is a 51-year-old gentleman with a diagnosis of a large B-cell lymphoma, currently undergoing chemotherapy, status post third cycle with EPOCH regimen. He comes into the hospital with intractable nausea and vomiting. Patient has not really been tolerating his diet over the last 10 to 11 days. Today patient appeared to be more restful. Family was at bedside; stated that they were able to converse with him without any difficulty. However, on earlier examination by physicians there was some concern about altered mental status. PHYSICAL EXAM: VITALS: Temperature 97.1, heart rate 87, respiratory rate 16, blood pressure 153/82. GENERAL APPEARANCE: Patient appears to be comfortable. He was arousable. Neck is supple. No JVD. LUNGS: Good air entry. Clear to auscultation. HEART: S1, S2 heard. Regular rate and rhythm. No murmurs appreciated. ABDOMEN: Soft, nontender. No organomegaly. NEURO: Detailed exam is deferred, as patient stated he was drowsy. LABORATORY DATA: White count is 27.2, hemoglobin 11.2, hematocrit 35, platelets 306. Sodium 132, potassium 3.7, chloride 90, bicarb 16. BUN 4, creatinine 0.50. ASSESSMENT AND PLAN: 1. Mild metabolic encephalopathy likely secondary to accelerated hypertension. 2. Hypokalemia secondary to dehydration, which is improved. 3. Patel's palsy, which is improving. Steroid dose is decreased, as there was some concern about steroid-induced encephalopathy. 4. Large B-cell lymphoma, status post 3 cycles of chemotherapy. 5. Leukocytosis, likely secondary to the above diagnosis. 6. Intractable nausea that was associated with chemotherapy, which is improving. PLAN: Continue ongoing care. Patient's blood pressure is improved. There is some concern about hypertensive encephalopathy; however, blood pressure is improved. Will continue monitoring. Judicious use of narcotics was discussed with the nursing staff. There is some concern about leptomeningeal involvement. It does not appear that there would be an infectious etiology at this time. Continue ongoing care in the selective care unit. DVT prophylaxis will be started with Lovenox 40 mg subcutaneously. Patient's p.r.n. morphine dose will be decreased at this time.
[2016-11-23] MEDS: ONDANSETRON 4 MG/2 ML VIAL IVP PRN ×2 (00:31→09:15)
[2016-11-23] MEDS: HYDROmorphone 1 MG/ML 1 ML SYRINGE IM PRN ×2 (00:33→09:11)
[2016-11-23] MEDS: MORPHINE SULFATE ER 30 MG TABLET PO SCH ×2 (00:35→09:36)
[2016-11-23] MEDS: LABETALOL 5 MG/ML VIAL MDV IVP SCH ×5 (06:04→18:39)
[2016-11-23 07:32] LABS: Anisocytosis Slight; Basophils % (A) 0 %; CH 29.3; Eosinophils % (A) 0 %; HCT 32.8 % (39.0-53.0); HDW 3.61; HGB 10.6 gm/dL (13.0-17.5); Luc % (Auto) 1; Lymphocytes # (A) 0.3 k/uL (1.0-4.8); Lymphocytes % (A) 2 %; MCHC 32.3 g/dL (31.0-37.0); MCV 86.6 fL (80.0-100.0); Mean Platelet Volume 7.2; Monocytes # (A) 0.6 k/uL (0-1.0); Monocytes % (A) 4 %; Neutrophils # (A) 12.9 k/uL (1.3-7.7); Neutrophils % (A) 93 %; Poikilocytosis Slight; RBC 3.78 m/uL (4.30-5.90); RDW 16.4 % (11.5-15.5); WBC 13.9 k/uL (3.8-10.6); WBC (Perox) 14.66
[2016-11-23 07:47] LABS: ALT 53 U/L (21-72); AST 39 U/L (17-59); Alkaline Phosphatase 141 U/L (38-126); Anion Gap 10 mmol/L; Blood Urea Nitrogen 10 mg/dL (9-20); Calcium 9.2 mg/dL (8.4-10.2); Carbon Dioxide 30 mmol/L (22-30); Chloride 92 mmol/L (98-107); Glucose 131 mg/dL (74-99); Non-African American GFR(MDRD) >60 (>60 ml/min/1.73 sqM); Potassium 3.5 mmol/L (3.5-5.1); Sodium 132 mmol/L (137-145); Total Bilirubin 1.6 mg/dL (0.2-1.3); Total Protein 6.2 g/dL (6.3-8.2)
[2016-11-23] MEDS ORDERED: HYDROmorphone 1 MG/ML 1 ML SYRINGE IVP PRN (09:25)
[2016-11-23] MEDS: methylPREDNISolone SOD SUCCI 40 MG/ML 1 ML VIAL IV SCH (09:31)
[2016-11-23] MEDS: amLODIPine 10 MG TAB PO SCH (09:32)
[2016-11-23] MEDS: PANTOPRAZOLE 40 MG TABLET PO SCH (09:33)
--- NOTE | 2016-11-23 14:21 | P.PN ---
Subjective Principal diagnosis: Nausea and vomiting This is a 51-year-old gentleman with history of hypertension, large B- cell lymphoma on chemotherapy by Dr. munson, admitted to the hospital with symptoms of nausea and vomiting with associated shoulder discomfort. Patient has also been diagnosed with a urinary tract infection and is recently been on ciprofloxacin. Cardiology was requested to see the patient because of accelerated hypertension. Blood pressure this morning 158/80. Patient continues to feel nauseous this morning. Currently on a Catapres patch along with Norvasc. Objective - Vital Signs Vital signs: Vital Signs Temp 97.7 F 11/23/16 12:00 Pulse 69 11/23/16 12:00 Resp 16 11/23/16 12:00 BP 178/95 11/23/16 12:00 Pulse Ox 98 11/23/16 12:00 Intake & Output 11/22/16 11/23/16 11/23/16 18:59 06:59 18:59 Intake Total 200 360 500 Output Total 1700 1650 Balance -1500 -1290 500 Weight 53.3 kg 53.3 kg Intake: IV 200 400 Sodium Chloride 0.9% 1, 200 400 000 ml @ 50 mls/hr IV . Q20H [facility] Rx#:[id number] Oral 360 100 Output: Urine 1700 1650 Uretheral (Scott) 1200 Other: Voiding Method Urinal Urinal Indwelling Catheter - Exam PHYSICAL EXAMINATION: HEENT: Head is atraumatic, normocephalic. Pupils equal, round. Neck is supple. There is no elevated jugular venous pressure. HEART EXAMINATION: Heart S1, S2 normal. No murmur or gallop heard. CHEST EXAMINATION: Lungs are clear to auscultation and precussion. No chest wall tenderness is noted on palpation or with deep breathing. ABDOMEN: Soft, nontender. Bowel sounds are heard. No organomegaly noted. EXTREMITIES: 2+ peripheral pulses with no evidence of peripheral edema and no calf tenderness noted. NEUROLOGIC patient is awake, alert and oriented -3. . - Labs CBC & Chem 7: 11/23/16 07:08 11/23/16 07:06 Labs: Abnormal Lab Results - Last 24 Hours (Table) 11/23/16 11/23/16 Range/Units 07:06 07:08 WBC 13.9 H (3.8-10.6) k/uL RBC 3.78 L (4.30-5.90) m/uL Hgb 10.6 L (13.0-17.5) gm/dL Hct 32.8 L (39.0-53.0) % RDW 16.4 H (11.5-15.5) % Neutrophils # 12.9 H (1.3-7.7) k/uL Lymphocytes # 0.3 L (1.0-4.8) k/uL Sodium 132 L (137-145) mmol/L Chloride 92 L (98-107) mmol/L Creatinine 0.55 L (0.66-1.25) mg/dL Glucose 131 H (74-99) mg/dL Total Bilirubin 1.6 H (0.2-1.3) mg/dL Alkaline Phosphatase 141 H (38-126) U/L Total Protein 6.2 L (6.3-8.2) g/dL Assessment and Plan (1) Hypertension, accelerated Status: Acute (2) Altered mental state Status: Acute (3) Facial paralysis/[place] palsy Status: Acute (4) Nausea & vomiting Status: Acute (5) Diffuse large B-cell lymphoma of lymph nodes of multiple regions Status: Chronic Plan: From cardiology's perspective, we will recommend to continue current antihypertensive medications. We will follow her along with you now on an as- needed basis only, please don't hesitate to call with any questions. DNP note has been reviewed, I agree with a documented findings and plan of care. Patient was seen and examined.
[2016-11-23 14:27] VITALS: BMI 18.3
[2016-11-23] MEDS: cloNIDine HCL 0.1 MG TAB PO SCH ×2 (16:58→23:20)
--- NOTE | 2016-11-23 16:58 | P.PN ---
Subjective Principal diagnosis: nausea and vomiting Pt seen today in follow up, he is out of ICU. He s more alert and oriented today, he is managing to eat and drink pretty well despite the left facial deficits, he continues to have nausea requiring antiemetics, pain is not well controlled. Denies fevers, oral irritation, chest pain, SOB, diarrhea or constipation. Objective - Vital Signs Vital signs: Vital Signs Temp 97.7 F 11/23/16 12:00 Pulse 69 11/23/16 12:00 Resp 16 11/23/16 12:00 BP 178/95 11/23/16 12:00 Pulse Ox 98 11/23/16 12:00 Intake & Output 11/22/16 11/23/16 11/23/16 18:59 06:59 18:59 Intake Total 200 360 500 Output Total 1700 1650 1000 Balance -1500 -1290 -500 Weight 53.3 kg 53.3 kg 53.3 kg Intake: IV 200 400 Sodium Chloride 0.9% 1, 200 400 000 ml @ 50 mls/hr IV . Q20H [facility] Rx#:[id number] Oral 360 100 Output: Urine 1700 1650 1000 Uretheral (Scott) 1200 Other: Voiding Method Urinal Urinal Indwelling Catheter - Constitutional General appearance: Present: cooperative, no acute distress, thin - EENT EENT Comment(s): pt unable to close right eye - Respiratory Respiratory: bilateral: CTA - Cardiovascular Heart sounds: normal: S1, S2 - Peripheral edema leg Peripheral Edema: bilateral: None - Gastrointestinal General gastrointestinal: Present: normal bowel sounds, soft - Integumentary Integumentary: Present: pale - Neurologic Neurologic Comment(s): left facial weakness - Musculoskeletal Musculoskeletal: Present: generalized weakness - Psychiatric Psychiatric Comment(s): still mild confusion-could not recall date but knew month and when he was supposed to be going on vacation. Psychiatric: Present: A&O x's 3, appropriate affect - Labs CBC & Chem 7: 11/23/16 07:08 11/23/16 07:06 Labs: Abnormal Lab Results - Last 24 Hours (Table) 11/23/16 11/23/16 Range/Units 07:06 07:08 WBC 13.9 H (3.8-10.6) k/uL RBC 3.78 L (4.30-5.90) m/uL Hgb 10.6 L (13.0-17.5) gm/dL Hct 32.8 L (39.0-53.0) % RDW 16.4 H (11.5-15.5) % Neutrophils # 12.9 H (1.3-7.7) k/uL Lymphocytes # 0.3 L (1.0-4.8) k/uL Sodium 132 L (137-145) mmol/L Chloride 92 L (98-107) mmol/L Creatinine 0.55 L (0.66-1.25) mg/dL Glucose 131 H (74-99) mg/dL Total Bilirubin 1.6 H (0.2-1.3) mg/dL Alkaline Phosphatase 141 H (38-126) U/L Total Protein 6.2 L (6.3-8.2) g/dL Assessment and Plan (1) Dehydration Status: Resolved (2) Hypokalemia Status: Resolved (3) Nausea & vomiting Narrative/Plan: Antiemetics regimen adjusted Status: Acute (4) Diffuse large B-cell lymphoma of lymph nodes of multiple regions Narrative/Plan: Current presentation not felt to be related to chemotherapy, pt had completely recovered from previous cycle prior to his current presentation. Pt will not resume treatment until he has recovered. Status: Chronic Plan: Pt being treated for hypertension Close monitoring of pt mental status Medications adjusted and converted to oral
--- NOTE | 2016-11-23 18:44 | P.PN ---
Subjective This patient is a 51-year-old right hand white male who has a history of diffuse large B-cell lymphoma. He has been undergoing chemotherapy and completed his third cycle of treatment. He was admitted to Hospital with symptoms of nausea and vomiting and electrolyte abnormalities. He was transferred to the intensive care unit with suspect of possible acute stroke. Neurology was consulted yesterday for further evaluation he had evidence of an acute Palma's palsy on examination. He was started on short course of oral steroids for further management. He is being followed by Dr. Stacy for treatment of the B-cell lymphoma. He was transferred to the cardiac floor as he had ongoing evidence of uncontrolled hypertension. He has been started on Catapres. There is been no other changes in his overall medical condition. Patient to continue treatment of underlying Palma's palsy. His blood pressure remained slightly elevated today. His overall left-sided Palma's palsy has shown no worsening symptoms. He will require ongoing outpatient physical therapy over the next several months to really monitor his progress. Continue to monitor the patient closely for hypertensive urgency at this time. Cardiology is following the patient closely and we will await their further recommendations. We will continue close neurological follow-up for the patient. Objective - Vital Signs Vital signs: Vital Signs Temp 97.7 F 11/23/16 12:00 Pulse 69 11/23/16 12:00 Resp 16 11/23/16 12:00 BP 178/95 11/23/16 12:00 Pulse Ox 98 11/23/16 12:00 Intake & Output 11/22/16 11/23/16 11/23/16 18:59 06:59 18:59 Intake Total 200 360 500 Output Total 1700 1650 Balance -1500 -1290 500 Weight 53.3 kg 53.3 kg 53.3 kg Intake: IV 200 400 Sodium Chloride 0.9% 1, 200 400 000 ml @ 50 mls/hr IV . Q20H [facility] Rx#:[id number] Oral 360 100 Output: Urine 1700 1650 Uretheral (Scott) 1200 Other: Voiding Method Urinal Urinal Indwelling Catheter - Exam Physical examination: PHYSICAL EXAMINATION: Patient is resting comfortably in bed. VITAL SIGNS: Blood pressure is [178/95]. Heart rate is [69]. Respiration is [16] . Temperature is [97.7]. HEENT: Head is atraumatic, neck is supple, there were no carotid bruits. CHEST: Lungs are clear to auscultation and percussion. CARDIAC: S1, S2 normal rate and rhythm. There is no murmur. ABDOMEN: Soft and nontender. Bowel sounds are present. EXTREMITIES: There is no pedal edema. Peripheral pulses are present. Neurological examination: Patient's neurological examination is unchanged from yesterday. He has a left sided Palma's palsy on examination. - Labs CBC & Chem 7: 11/23/16 07:08 11/23/16 07:06 Labs: Abnormal Lab Results - Last 24 Hours (Table) 11/23/16 11/23/16 Range/Units 07:06 07:08 WBC 13.9 H (3.8-10.6) k/uL RBC 3.78 L (4.30-5.90) m/uL Hgb 10.6 L (13.0-17.5) gm/dL Hct 32.8 L (39.0-53.0) % RDW 16.4 H (11.5-15.5) % Neutrophils # 12.9 H (1.3-7.7) k/uL Lymphocytes # 0.3 L (1.0-4.8) k/uL Sodium 132 L (137-145) mmol/L Chloride 92 L (98-107) mmol/L Creatinine 0.55 L (0.66-1.25) mg/dL Glucose 131 H (74-99) mg/dL Total Bilirubin 1.6 H (0.2-1.3) mg/dL Alkaline Phosphatase 141 H (38-126) U/L Total Protein 6.2 L (6.3-8.2) g/dL Assessment and Plan (1) Facial paralysis/[place] palsy Status: Acute Code(s): G51.0 - PALMA'S PALSY (2) Diffuse large B-cell lymphoma of lymph nodes of multiple regions Status: Chronic Code(s): C83.38 - DIFFUSE LARGE B-CELL LYMPHOMA, LYMPH NODES OF MULTIPLE SITES Plan: This patient is a 51-year-old male who suffered an acute left-sided Palma's palsy. He is being monitored on the medical floor due to hypertensive urgency. Blood pressure is slowly improving. He has multiple medical problems including history of B-cell lymphoma and is undergone chemotherapy for treatment. He is also being treated for urinary tract infection. Due to his accelerated hypertension cardiology is monitoring him closely. His Palma's palsy remains stable at this time. He will need to continue with exercise in outpatient physical therapy. His overall prognosis at this time remains guarded.
--- NOTE | 2016-11-23 18:54 | P.PN ---
Subjective 51-year-old gentleman that is undergoing treatment for large B-cell lymphoma comes in to the hospital with complaints of intractable nausea/vomiting. Patient was noted to have severe hypokalemia on admission. Patient underwent replacement. Patient was also noted to have a Patel spells on the left side. Currently patient is symptomatically improved. However over the course last 48 hours patient's blood pressure was elevated and was noted to have some changes with encephalopathy secondary to that. This a.m. patient was comfortably sitting up was able to tolerate diet and fluids as well. Denies having any additional complaints at this time. Objective - Vital Signs Vital signs: Vital Signs Temp 98.2 F 11/23/16 16:55 Pulse 73 11/23/16 16:55 Resp 16 11/23/16 16:55 BP 101/73 11/23/16 16:55 Pulse Ox 98 11/23/16 16:55 Intake & Output 11/22/16 11/23/16 11/23/16 18:59 06:59 18:59 Intake Total 200 360 500 Output Total 1700 1650 1000 Balance -1500 -1290 -500 Weight 53.3 kg 53.3 kg 53.3 kg Intake: IV 200 400 Sodium Chloride 0.9% 1, 200 400 000 ml @ 50 mls/hr IV . Q20H [facility] Rx#:[id number] Oral 360 100 Output: Urine 1700 1650 1000 Uretheral (Scott) 1200 Other: Voiding Method Urinal Urinal Indwelling Catheter - Exam Physical exam Gen. appearance oriented 3 in no distress Neck is supple no JVD Face a left-sided Patel spell palsy consistent with the facial droop and mild lid lag but is noted however improved from admission Lungs good air entry clear to auscultation no rhonchi or wheezing Heart S1-S2 heard regular rate and rhythm no murmurs appreciated Abdomen is soft nontender no organomegaly bowel sounds are intact Neurologically cranial nerves II-12 grossly intact no focal motor or sensory deficits noted Skin no abnormalities appreciated - Labs CBC & Chem 7: 11/23/16 07:08 11/23/16 07:06 Labs: Abnormal Lab Results - Last 24 Hours (Table) 11/23/16 11/23/16 Range/Units 07:06 07:08 WBC 13.9 H (3.8-10.6) k/uL RBC 3.78 L (4.30-5.90) m/uL Hgb 10.6 L (13.0-17.5) gm/dL Hct 32.8 L (39.0-53.0) % RDW 16.4 H (11.5-15.5) % Neutrophils # 12.9 H (1.3-7.7) k/uL Lymphocytes # 0.3 L (1.0-4.8) k/uL Sodium 132 L (137-145) mmol/L Chloride 92 L (98-107) mmol/L Creatinine 0.55 L (0.66-1.25) mg/dL Glucose 131 H (74-99) mg/dL Total Bilirubin 1.6 H (0.2-1.3) mg/dL Alkaline Phosphatase 141 H (38-126) U/L Total Protein 6.2 L (6.3-8.2) g/dL Assessment and Plan Plan: #1 accelerated hypertension with hypertensive encephalopathy #2 Patel's palsy #3 large B-cell lymphoma #4 hypokalemia #5 intractable nausea/vomiting #6 chronic pain syndrome Plan Patient's blood pressure was still mildly elevated will adjust the blood pressure medications by adding 0.1 twice a day of oral clonidine which could be titrated on or off depending on further trends. Patient appears to be improved. Patient's steroids will be discontinued at that time and will likely change to a Medrol Dosepak tomorrow. Repeat lytes in the a.m. DVT prophylaxis.
[2016-11-23] MEDS: oxyCODONE-APAP 10-325MG 1 EACH TAB PO PRN (19:05)
[2016-11-23] MEDS: ENOXAPARIN 40 MG/0.4 ML SYRINGE SQ SCH (22:27)
[2016-11-24] MEDS: LABETALOL 5 MG/ML VIAL MDV IVP SCH ×3 (00:07→04:58)
[2016-11-24] MEDS: MORPHINE SULFATE ER 30 MG TABLET PO SCH ×3 (00:07→20:53)
[2016-11-24 06:21] LABS: Anisocytosis Slight; Basophils % (A) 0 %; CHCM 32.5; Eosinophils % (A) 0 %; HCT 32.6 % (39.0-53.0); HDW 3.53; HGB 10.5 gm/dL (13.0-17.5); Hypochromasia Slight; Luc # (Auto) 0.12; Luc % (Auto) 1; Lymphocytes # (A) 0.3 k/uL (1.0-4.8); Lymphocytes % (A) 4 %; MCH 28.9 pg (25.0-35.0); MCHC 32.3 g/dL (31.0-37.0); MCV 89.5 fL (80.0-100.0); Mean Platelet Volume 6.4; Monocytes # (A) 0.7 k/uL (0-1.0); Monocytes % (A) 7 %; Neutrophils # (A) 8.2 k/uL (1.3-7.7); Neutrophils % (A) 88 %; Poikilocytosis Slight; RBC 3.64 m/uL (4.30-5.90); RDW 16.3 % (11.5-15.5); WBC 9.3 k/uL (3.8-10.6); WBC (Perox) 10.81
[2016-11-24 06:31] LABS: ALT 151 U/L (21-72); AST 109 U/L (17-59); Alkaline Phosphatase 164 U/L (38-126); Anion Gap 9 mmol/L; Blood Urea Nitrogen 15 mg/dL (9-20); Calcium 9.1 mg/dL (8.4-10.2); Carbon Dioxide 33 mmol/L (22-30); Chloride 97 mmol/L (98-107); Glucose 116 mg/dL (74-99); Non-African American GFR(MDRD) >60 (>60 ml/min/1.73 sqM); Potassium 3.6 mmol/L (3.5-5.1); Sodium 139 mmol/L (137-145); Total Protein 5.9 g/dL (6.3-8.2)
[2016-11-24 07:26] LABS: Manual Review Performed; Toxic Granulation Present
[2016-11-24] MEDS: FLUCONAZOLE 100 MG TAB PO SCH (09:01)
[2016-11-24] MEDS: SODIUM CHLORIDE 0.9% 1,000 ML IV SCH (09:01)
[2016-11-24] MEDS: PANTOPRAZOLE 40 MG TABLET PO SCH (09:11)
[2016-11-24] MEDS: ENOXAPARIN 40 MG/0.4 ML SYRINGE SQ SCH (09:11)
[2016-11-24] MEDS: amLODIPine 10 MG TAB PO SCH (09:11)
[2016-11-24] MEDS: cloNIDine HCL 0.1 MG TAB PO SCH ×2 (09:11→20:57)
--- NOTE | 2016-11-24 13:00 | P.PN ---
Subjective This patient is a 51-year-old right hand white male who has a history of diffuse large B-cell lymphoma. He has been undergoing chemotherapy and completed his third cycle of treatment. He was admitted to Hospital with symptoms of nausea and vomiting and electrolyte abnormalities. He was transferred to the intensive care unit with suspect of possible acute stroke. Neurology was consulted yesterday for further evaluation he had evidence of an acute Palma's palsy on examination. He was started on short course of oral steroids for further management. He is being followed by Dr. Stacy for treatment of the B-cell lymphoma. He was transferred to the cardiac floor as he had ongoing evidence of uncontrolled hypertension. He has been started on Catapres. There is been no other changes in his overall medical condition. Patient to continue treatment of underlying Palma's palsy. His blood pressure remained slightly elevated today. His overall left-sided Palma's palsy has shown no worsening symptoms. He will require ongoing outpatient physical therapy over the next several months to really monitor his progress. Continue to monitor the patient closely for hypertensive urgency at this time. Cardiology is following the patient closely and we will await their further recommendations. We will continue close neurological follow-up for the patient. Objective - Vital Signs Vital signs: Vital Signs Temp 97.9 F 11/24/16 08:00 Pulse 73 11/24/16 08:00 Resp 16 11/24/16 08:00 BP 159/79 11/24/16 08:00 Pulse Ox 98 11/24/16 09:08 Intake & Output 11/23/16 11/24/16 11/24/16 18:59 06:59 18:59 Intake Total 500 Output Total 1000 950 550 Balance -500 -950 -550 Weight 53.3 kg Intake: IV 400 Sodium Chloride 0.9% 1, 400 000 ml @ 50 mls/hr IV . Q20H [facility] Rx#:[id number] Oral 100 Output: Urine 1000 950 550 Other: Voiding Method Indwelling Catheter Indwelling Catheter Indwelling Catheter - Exam Physical examination: PHYSICAL EXAMINATION: Patient is resting comfortably in bed. VITAL SIGNS: Blood pressure is [159/79]. Heart rate is [73]. Respiration is [16] . Temperature is [97.9]. HEENT: Head is atraumatic, neck is supple, there were no carotid bruits. CHEST: Lungs are clear to auscultation and percussion. CARDIAC: S1, S2 normal rate and rhythm. There is no murmur. ABDOMEN: Soft and nontender. Bowel sounds are present. EXTREMITIES: There is no pedal edema. Peripheral pulses are present. Neurological examination: Patient's neurological examination is unchanged from yesterday. He has a left sided Palma's palsy on examination. - Labs CBC & Chem 7: 11/24/16 05:50 11/24/16 05:50 Labs: Abnormal Lab Results - Last 24 Hours (Table) 11/24/16 11/24/16 Range/Units 05:50 05:50 RBC 3.64 L (4.30-5.90) m/uL Hgb 10.5 L (13.0-17.5) gm/dL Hct 32.6 L (39.0-53.0) % RDW 16.3 H (11.5-15.5) % Neutrophils # 8.2 H (1.3-7.7) k/uL Lymphocytes # 0.3 L (1.0-4.8) k/uL Chloride 97 L (98-107) mmol/L Carbon Dioxide 33 H (22-30) mmol/L Glucose 116 H (74-99) mg/dL AST 109 H (17-59) U/L ALT 151 H (21-72) U/L Alkaline Phosphatase 164 H (38-126) U/L Total Protein 5.9 L (6.3-8.2) g/dL Assessment and Plan (1) Facial paralysis/[place] palsy Status: Acute Code(s): G51.0 - PALMA'S PALSY (2) Diffuse large B-cell lymphoma of lymph nodes of multiple regions Status: Chronic Code(s): C83.38 - DIFFUSE LARGE B-CELL LYMPHOMA, LYMPH NODES OF MULTIPLE SITES Plan: This patient is a 51-year-old male who suffered an acute left-sided Palma's palsy. He is being monitored on the medical floor due to hypertensive urgency. Blood pressure is slowly improving. He has multiple medical problems including history of B-cell lymphoma and is undergone chemotherapy for treatment. He is also being treated for urinary tract infection. Due to his accelerated hypertension cardiology is monitoring him closely. His Palma's palsy remains stable at this time. He will need to continue with exercise in outpatient physical therapy. His blood pressure seems to be running better today. He is more awake and responsive as well. His Palma's palsy has shown no significant change since initial presentation. He will need to continue with outpatient physical therapy for exercise and muscle stimulation. Patient should complete his course of steroids orally and to continue with home exercises as instructed. We will continue to monitor his neurological status closely during this admission. He is being evaluated for possible discharge home soon. His overall prognosis at this time remains guarded.
--- NOTE | 2016-11-24 17:03 | P.PN ---
Subjective Principal diagnosis: Intractable nausea ,vomiting, Patel's palsy. Diffuse large B-cell non-Hodgkin' s lymphoma Objective - Vital Signs Vital signs: Vital Signs Temp 97.0 F L 11/24/16 12:00 Pulse 73 11/24/16 12:00 Resp 16 11/24/16 12:00 BP 147/89 11/24/16 12:00 Pulse Ox 98 11/24/16 12:00 Intake & Output 11/23/16 11/24/16 11/24/16 18:59 06:59 18:59 Intake Total 500 100 Output Total 1000 950 550 Balance -500 -950 -450 Weight 53.3 kg 53.3 kg Intake: IV 400 Sodium Chloride 0.9% 1, 400 000 ml @ 50 mls/hr IV . Q20H [facility] Rx#:[id number] Oral 100 100 Output: Urine 1000 950 550 Other: Voiding Method Indwelling Catheter Indwelling Catheter Indwelling Catheter # Voids 0 - Constitutional Constitutional Comment(s): Weak and lethargic. General appearance: Present: no acute distress - EENT EENT Comment(s): Left-sided Patel's palsy Eyes: Present: PERRLA ENT: Present: hearing grossly normal, normal oropharynx - Respiratory Respiratory: bilateral: CTA - Cardiovascular Rhythm: regular Heart sounds: normal: S1, S2 - Gastrointestinal General gastrointestinal: Present: normal bowel sounds, soft - Integumentary Integumentary: Present: normal - Neurologic Neurologic: Present: focal deficits (Left-sided Patel's palsy) - Musculoskeletal Musculoskeletal: Present: generalized weakness - Psychiatric Psychiatric: Present: A&O x's 3, appropriate affect - Labs CBC & Chem 7: 11/24/16 05:50 11/24/16 05:50 Labs: Abnormal Lab Results - Last 24 Hours (Table) 11/24/16 11/24/16 Range/Units 05:50 05:50 RBC 3.64 L (4.30-5.90) m/uL Hgb 10.5 L (13.0-17.5) gm/dL Hct 32.6 L (39.0-53.0) % RDW 16.3 H (11.5-15.5) % Neutrophils # 8.2 H (1.3-7.7) k/uL Lymphocytes # 0.3 L (1.0-4.8) k/uL Chloride 97 L (98-107) mmol/L Carbon Dioxide 33 H (22-30) mmol/L Glucose 116 H (74-99) mg/dL AST 109 H (17-59) U/L ALT 151 H (21-72) U/L Alkaline Phosphatase 164 H (38-126) U/L Total Protein 5.9 L (6.3-8.2) g/dL Assessment and Plan (1) Altered mental state Narrative/Plan: On evaluation today, the patient was alert and oriented 3. His responses were quite appropriate and the call was also normal. His brother stated that he had talked to him about where he had left different things in the house, and the patient was able to recall those accurately. However he remains overall quite weak and lethargic. There does appear to be change in his personality from before. The case was discussed extensively with the internal medicine service. To complete workup, it was felt it reasonable at this time to proceed with the lumbar puncture. Spinal fluid will be analyzed for evidence of any infection, as well as the leptomeningeal involvement with lymphoma. A viral encephalitis however appears to be very unlikely, given that the patient is conscious and appropriate Status: Acute (2) Facial paralysis/[place] palsy Narrative/Plan: This is overall stable. There was no significant improvement with steroid. Oral steroids have been discontinued this time. Status: Acute (3) Nausea & vomiting Narrative/Plan: This is overall improved Status: Acute SNOMED Code(s): 66426151 (4) Diffuse large B-cell lymphoma of lymph nodes of multiple regions Narrative/Plan: Resumption of chemotherapy will be on hold until the patient's general condition improves. At this time is too weak to start back on treatment. However there is no evidence of any progression of the lymphoma itself. Status: Chronic Plan: The dietitian has been consulted. Physical therapy is also been ordered for the patient.
--- NOTE | 2016-11-24 19:18 | P.PN ---
Subjective 51-year-old gentleman that is undergoing treatment for large B-cell lymphoma comes in to the hospital with complaints of intractable nausea/vomiting. Patient was noted to have severe hypokalemia on admission. Patient underwent replacement. Patient was also noted to have a Patel spells on the left side. Currently patient is symptomatically improved. However over the course last 48 hours patient's blood pressure was elevated and was noted to have some changes with encephalopathy secondary to that. This a.m. patient was comfortably sitting up was able to tolerate diet and fluids as well. Denies having any additional complaints at this time. More awake is answering questions. however according to the family, there is personality change. some change indecision making. Objective - Vital Signs Vital signs: Vital Signs Temp 98.2 F 11/24/16 16:00 Pulse 59 L 11/24/16 16:00 Resp 16 11/24/16 16:00 BP 139/74 11/24/16 16:00 Pulse Ox 97 11/24/16 16:00 Intake & Output 11/24/16 11/24/16 11/25/16 06:59 18:59 06:59 Intake Total 100 Output Total 950 550 Balance -950 -450 Weight 53.3 kg Intake: Oral 100 Output: Urine 950 550 Other: Voiding Method Indwelling Catheter Indwelling Catheter # Voids 0 - Exam Physical exam Gen. appearance oriented 3 in no distress Neck is supple no JVD Face a left-sided Patel spell palsy consistent with the facial droop and mild lid lag but is noted however improved from admission Lungs good air entry clear to auscultation no rhonchi or wheezing Heart S1-S2 heard regular rate and rhythm no murmurs appreciated Abdomen is soft nontender no organomegaly bowel sounds are intact Neurologically cranial nerves II-12 grossly intact no focal motor or sensory deficits noted Skin no abnormalities appreciated - Labs CBC & Chem 7: 11/24/16 05:50 11/24/16 05:50 Labs: Abnormal Lab Results - Last 24 Hours (Table) 11/24/16 11/24/16 Range/Units 05:50 05:50 RBC 3.64 L (4.30-5.90) m/uL Hgb 10.5 L (13.0-17.5) gm/dL Hct 32.6 L (39.0-53.0) % RDW 16.3 H (11.5-15.5) % Neutrophils # 8.2 H (1.3-7.7) k/uL Lymphocytes # 0.3 L (1.0-4.8) k/uL Chloride 97 L (98-107) mmol/L Carbon Dioxide 33 H (22-30) mmol/L Glucose 116 H (74-99) mg/dL AST 109 H (17-59) U/L ALT 151 H (21-72) U/L Alkaline Phosphatase 164 H (38-126) U/L Total Protein 5.9 L (6.3-8.2) g/dL Assessment and Plan Plan: #1 accelerated hypertension with hypertensive encephalopathy #2 Patel's palsy #3 large B-cell lymphoma #4 hypokalemia #5 intractable nausea/vomiting #6 chronic pain syndrome Plan Bp slighlty improved LP and CSF testing to rule out leptomeningeal involvement. Repeat lytes in the a.m. DVT prophylaxis.
--- NOTE | 2016-11-24 21:34 | P.PCN ---
Date of Procedure: 11/24/16 Procedure(s) Performed: Preoperative diagnosis: 1-Encephalopathy 2-B cell lymphoma Post operative diagnoses: Same as preoperative diagnosis Anesthesia local infiltration with lidocaine 1% 2 mL. Condition: stable Complication: none. Description of the procedure procedure risk and benefits discussed with the patient , consent signed. Patient and placed in sitting position, back prepped with chlorhexidine 3 times been local infiltration of the skin and subcutaneous tissue with lidocaine 1% 2 mL for skin and subcu interstitial frustrations at L4 5 levels then 22-gauge Quincke-type needle advanced slowly at L4- 5 interlaminar space there was positive cerebrospinal fluid which was clear, no heme, no paresthesia ,total of 6 ML of clear cerebrospinal fluid collected in 4 different tubes 1-1/2 mL in each, then the needle removed and a Band-Aid applied and patient tolerated the procedure well without any complications. note= patient received Lovenox 40 mg at 9 AM today, for this reason I have to wait 12 hours before I can do the lumbar puncture and the procedure was done at 9,10 PM
[2016-11-24 22:10] LABS: Glucose,CSF 27 mg/dL (40-70)
[2016-11-24 22:17] LABS: Appearance,CSF Clear
[2016-11-24 22:18] LABS: Diff, Total Cells Cnt, CSF 100; Polynuclear WBC,CSF 15 %
[2016-11-24 22:19] LABS: Red Blood Cell, CSF Fresh 100 %
[2016-11-25 06:56] LABS: Anisocytosis Slight; Basophils % (A) 0 %; CHCM 32.4; Eosinophils % (A) 0 %; HCT 35.4 % (39.0-53.0); HDW 3.55; HGB 11.3 gm/dL (13.0-17.5); Hypochromasia Slight; Luc # (Auto) 0.11; Luc % (Auto) 1; Lymphocytes # (A) 0.3 k/uL (1.0-4.8); Lymphocytes % (A) 3 %; MCH 28.6 pg (25.0-35.0); MCHC 31.8 g/dL (31.0-37.0); MCV 89.8 fL (80.0-100.0); Mean Platelet Volume 6.3; Monocytes # (A) 0.5 k/uL (0-1.0); Monocytes % (A) 5 %; Neutrophils # (A) 9.8 k/uL (1.3-7.7); Neutrophils % (A) 91 %; Poikilocytosis Slight; RBC 3.94 m/uL (4.30-5.90); RDW 16.2 % (11.5-15.5); WBC 10.8 k/uL (3.8-10.6); WBC (Perox) 11.58
[2016-11-25 07:34] LABS: ALT 129 U/L (21-72); AST 42 U/L (17-59); Alkaline Phosphatase 171 U/L (38-126); Anion Gap 12 mmol/L; Blood Urea Nitrogen 14 mg/dL (9-20); Calcium 9.5 mg/dL (8.4-10.2); Carbon Dioxide 34 mmol/L (22-30); Chloride 95 mmol/L (98-107); Glucose 114 mg/dL (74-99); Non-African American GFR(MDRD) >60 (>60 ml/min/1.73 sqM); Potassium 3.6 mmol/L (3.5-5.1); Sodium 141 mmol/L (137-145); Total Bilirubin 1.2 mg/dL (0.2-1.3); Total Protein 6.3 g/dL (6.3-8.2)
[2016-11-25] MEDS: MORPHINE SULFATE ER 30 MG TABLET PO SCH ×2 (07:46→21:41)
[2016-11-25] MEDS: cloNIDine HCL 0.1 MG TAB PO SCH ×2 (07:46→21:42)
[2016-11-25] MEDS: amLODIPine 10 MG TAB PO SCH (07:46)
[2016-11-25] MEDS: ENOXAPARIN 40 MG/0.4 ML SYRINGE SQ SCH (07:47)
[2016-11-25] MEDS: PANTOPRAZOLE 40 MG TABLET PO SCH (07:47)
--- NOTE | 2016-11-25 15:24 | MR ---
EXAMINATION TYPE: MR brain wo/w con DATE OF EXAM: 11/25/2016 3:08 PM COMPARISON: NONE HISTORY: Confusion CONTRAST: Multiplanar multi echo imaging of the brain was performed without and with IV contrast. Contrast was MultiHance 10 mL. FINDINGS: There is some cerebral cortical atrophy. There is no mass effect nor midline shift. There i s no sign of intracranial hemorrhage. There is mild enlargement of the ventricles. There are is abnor mal increased signal in the white matter around the lateral ventricles that measures up to 5 mm in th ickness. There is multiple small foci of increased signal in the kurtz-white matter junction of both c erebral hemispheres. Total number is less than 10. These measure up to 7 mm. Sella turcica is normal. There is a 5 mm defect in the anterior corpus callosum. There is a 5 mm defect in the midcorpus call osum. There is mild thinning of corpus callosum. I see no pathologic enhancement. IMPRESSION: There are changes of cerebral atrophy and normal pressure type hydrocephalus. There are multiple whit e matter lesions that are nonspecific and certainly demyelinating disease in the differential diagnos is. I would also consider chronic small vessel ischemia. I do not see large areas of white matter dis ease to suggest PML.
[2016-11-25] MEDS: cefTRIAXone 2,000 MG in SODIUM CHLORIDE 0.9% 100 ML IVPB SCH ×2 (15:33→21:41)
[2016-11-25] MEDS: ACYCLOVIR SODIUM 600 MG in SODIUM CHLORIDE 0.9% 100 ML IVPB SCH ×2 (15:38→23:21)
[2016-11-25] MEDS ORDERED: AMPICILLIN 2,000 MG in SODIUM CHLORIDE 0.9% 100 ML IVPB SCH (16:00)
--- NOTE | 2016-11-25 16:09 | P.PN ---
Subjective This patient is a 51-year-old right hand white male who has a history of diffuse large B-cell lymphoma. He has been undergoing chemotherapy and completed his third cycle of treatment. He was admitted to Hospital with symptoms of nausea and vomiting and electrolyte abnormalities. He was transferred to the intensive care unit with suspect of possible acute stroke. Neurology was consulted yesterday for further evaluation he had evidence of an acute Palma's palsy on examination. He was started on short course of oral steroids for further management. He is being followed by Dr. Stacy for treatment of the B-cell lymphoma. He was transferred to the cardiac floor as he had ongoing evidence of uncontrolled hypertension. He had evidence of mild hypertensive encephalopathy. He has been started on Catapres. There is been no other changes in his overall medical condition. Patient to continue treatment of underlying Palma's palsy. His blood pressure remained slightly elevated today. His overall left-sided Palma's palsy has shown no worsening symptoms. He will require ongoing outpatient physical therapy over the next several months to really monitor his progress. There is been no significant improvement with this steroid use and this has been discontinued. Apparently the patient showed some ental status changes yesterday that was noted by family. To complete his workup he did undergo a lumbar puncture yesterday to rule out leptomeningeal involvement from his B-cell lymphoma. His spinal fluid was reviewed today and reveals RBC-85 WBC-250 CSF glucose -27th CSF protein greater than 600. Gram stain failed to reveal any organisms. Final pathology is still pending regarding possibility of lymphoma cells. Protein is quite elevated dense does suggest some form of inflammatory reaction. We will await the final pathology report on the CSF. is grossly elevated CSF protein does suggest possibility of leptomeningeal involvement from his large B-cell lymphoma. Case was discussed today with Dr. Darling. Dr. Stacy is recommending MRI of the brain to be done. We will await those results and we will await further recommendations from Dr. Stacy. It is questionable whether the patient would benefit from intrathecal antibiotic therapy at this time. Continue to monitor the patient closely for hypertensive urgency at this time. Cardiology is following the patient closely and we will await their further recommendations. We will continue close neurological follow-up for the patient. His overall prognosis at this time remains very guarded. Objective - Vital Signs Vital signs: Vital Signs Temp 98.0 F 11/25/16 07:00 Pulse 63 02/11/17 07:00 Resp 18 11/25/16 07:00 BP 178/94 11/25/16 07:00 Pulse Ox 97 11/25/16 07:00 Intake & Output 11/24/16 11/25/16 11/25/16 18:59 06:59 18:59 Intake Total 100 Output Total 550 Balance -450 Weight 53.3 kg Intake: Oral 100 Output: Urine 550 Other: Voiding Method Indwelling Catheter Urinal # Voids 0 1 - Exam Physical examination: PHYSICAL EXAMINATION: Patient is resting comfortably in bed. VITAL SIGNS: Blood pressure is [178/94]. Heart rate is [63]. Respiration is [18] . Temperature is [98.0]. HEENT: Head is atraumatic, neck is supple, there were no carotid bruits. CHEST: Lungs are clear to auscultation and percussion. CARDIAC: S1, S2 normal rate and rhythm. There is no murmur. ABDOMEN: Soft and nontender. Bowel sounds are present. EXTREMITIES: There is no pedal edema. Peripheral pulses are present. Neurological examination: Patient's neurological examination is unchanged from yesterday. He has a left sided Palma's palsy on examination. - Labs CBC & Chem 7: 11/25/16 06:35 11/25/16 06:35 Labs: Abnormal Lab Results - Last 24 Hours (Table) 11/24/16 11/25/16 11/25/16 Range/Units 21:30 06:35 06:35 WBC 10.8 H (3.8-10.6) k/uL RBC 3.94 L (4.30-5.90) m/uL Hgb 11.3 L (13.0-17.5) gm/dL Hct 35.4 L (39.0-53.0) % RDW 16.2 H (11.5-15.5) % Neutrophils # 9.8 H (1.3-7.7) k/uL Lymphocytes # 0.3 L (1.0-4.8) k/uL Chloride 95 L (98-107) mmol/L Carbon Dioxide 34 H (22-30) mmol/L Creatinine 0.60 L (0.66-1.25) mg/dL Glucose 114 H (74-99) mg/dL ALT 129 H (21-72) U/L Alkaline Phosphatase 171 H (38-126) U/L CSF RBC 85 H (0-10) u/L CSF Tot Nucleated Cells 250 H (0-5) u/L CSF Glucose 27 L (40-70) mg/dL CSF Total Protein >600 H (12-60) mg/dL Microbiology - Last 24 Hours (Table) 11/24/16 21:30 CSF Gram Stain - Preliminary Cerebral Spinal Fluid CSF Culture - Preliminary Assessment and Plan (1) Facial paralysis/[place] palsy Status: Acute Code(s): G51.0 - PALMA'S PALSY (2) Diffuse large B-cell lymphoma of lymph nodes of multiple regions Status: Chronic Code(s): C83.38 - DIFFUSE LARGE B-CELL LYMPHOMA, LYMPH NODES OF MULTIPLE SITES Plan: This patient is a 51-year-old male initially evaluated in intensive care unit for possibility of acute stroke. He had evidence of an acute left-sided Palma's palsy. He has continued on treatment for this condition with very little improvement with this facial paralysis. He underwent a lumbar puncture yesterday due to increased confusion. The spinal fluid results are as noted above. CSF protein is markedly elevated. This is suggesting possibility of leptomeningeal involvement from his B-cell lymphoma. He is being followed by oncology and we will await their further recommendations. Patient may require intrathecal management of his condition. Pure also is awaiting the final pathology report regarding the spinal fluid. Patient otherwise seems to be doing relatively the same. There is no significant improvement with this Palma' s palsy. We will continue close monitoring of his condition. We'll await further recommendations from oncology regarding his MRI results and spinal fluid results. His overall prognosis at this time remains very guarded. Case was discussed today at length with Dr. Darling. We'll await the results of the MRI of the brain and we'll give further recommendations pending these results. His overall prognosis at this time remains very guarded.
--- NOTE | 2016-11-25 17:27 | P.PN ---
Subjective 51-year-old gentleman that is undergoing treatment for large B-cell lymphoma comes in to the hospital with complaints of intractable nausea/vomiting. Patient was noted to have severe hypokalemia on admission. Patient underwent replacement. Patient was also noted to have a Patel spells on the left side. Currently patient is symptomatically improved. However over the course last 48 hours patient's blood pressure was elevated and was noted to have some changes with encephalopathy secondary to that. This a.m. patient was comfortably sitting up was able to tolerate diet and fluids as well. Denies having any additional complaints at this time. More awake is answering questions. however according to the family, there is personality change. some change indecision making. 11/25/2016 Patient is awake answering some questions. Denies having any headache, blurry vision, chest pain, nausea, vomiting or diarrhea. Objective - Vital Signs Vital signs: Vital Signs Temp 98.0 F 11/25/16 15:00 Pulse 83 11/25/16 15:00 Resp 18 11/25/16 15:00 BP 162/98 11/25/16 15:00 Pulse Ox 98 11/25/16 15:00 Intake & Output 11/24/16 11/25/16 11/25/16 18:59 06:59 18:59 Intake Total 100 Output Total 550 Balance -450 Weight 53.3 kg Intake: Oral 100 Output: Urine 550 Other: Voiding Method Indwelling Catheter Urinal # Voids 0 1 - Exam Physical exam Gen. appearance oriented 3 in no distress Neck is supple no JVD Face a left-sided Patel spell palsy consistent with the facial droop and mild lid lag but is noted however improved from admission Lungs good air entry clear to auscultation no rhonchi or wheezing Heart S1-S2 heard regular rate and rhythm no murmurs appreciated Abdomen is soft nontender no organomegaly bowel sounds are intact Neurologically cranial nerves II-12 grossly intact no focal motor or sensory deficits noted Skin no abnormalities appreciated - Labs CBC & Chem 7: 11/25/16 06:35 11/25/16 06:35 Labs: Abnormal Lab Results - Last 24 Hours (Table) 11/24/16 11/25/16 11/25/16 Range/Units 21:30 06:35 06:35 WBC 10.8 H (3.8-10.6) k/uL RBC 3.94 L (4.30-5.90) m/uL Hgb 11.3 L (13.0-17.5) gm/dL Hct 35.4 L (39.0-53.0) % RDW 16.2 H (11.5-15.5) % Neutrophils # 9.8 H (1.3-7.7) k/uL Lymphocytes # 0.3 L (1.0-4.8) k/uL Chloride 95 L (98-107) mmol/L Carbon Dioxide 34 H (22-30) mmol/L Creatinine 0.60 L (0.66-1.25) mg/dL Glucose 114 H (74-99) mg/dL ALT 129 H (21-72) U/L Alkaline Phosphatase 171 H (38-126) U/L CSF RBC 85 H (0-10) u/L CSF Tot Nucleated Cells 250 H (0-5) u/L CSF Glucose 27 L (40-70) mg/dL CSF Total Protein >600 H (12-60) mg/dL Microbiology - Last 24 Hours (Table) 11/24/16 21:30 CSF Gram Stain - Preliminary Cerebral Spinal Fluid CSF Culture - Preliminary Assessment and Plan Plan: #1 accelerated hypertension with hypertensive encephalopathy #2 Patel's palsy #3 large B-cell lymphoma #4 hypokalemia #5 intractable nausea/vomiting #6 chronic pain syndrome Plan Bp slighlty improved csf analysis noted significant protein. Await testing including's Gram stain. Await pathology results and immunofixation. Patient was seen by Dr. Aaron MRI was done thereafter. Prognosis appears to be extremely poor.
[2016-11-25] MEDS ORDERED: IV VANCOMYCIN PER PHARMACY 1 EACH MISC MISCELLANE PRN (17:30)
[2016-11-25] MEDS: VANCOMYCIN 1,000 MG in SODIUM CHLORIDE 0.9% 250 ML IVPB SCH (18:23)
--- NOTE | 2016-11-25 18:51 | PN ---
DATE OF SERVICE: 11/25/2016 CHIEF COMPLAINT: Fatigue. HISTORY: Jose Enrique is seen today in follow up. He feels tired and he has facial weakness. However, he seems alert and oriented x3 and answering questions appropriately. He underwent a lumbar puncture and CSF revealed significantly elevated WBCs in the fluid and also significantly low glucose and significantly elevated total protein. The finding are suspicious for meningitis. However, the patient has been running afebrile. He denies any headaches, nausea, vomiting. No melena, hematuria, or hemoptysis. PHYSICAL EXAMINATION: He is alert, and he is oriented x3 at this time. He knows the place where he is, the date, the time, the President. He does not appear to be in acute distress. VITAL SIGNS: Temperature 98.0, afebrile, pulse 63 regular, respiration 18, blood pressure 178/94. Pulse ox 97% on room air. HEENT: Normocephalic, atraumatic. He has obvious left facial drooping. NECK: Somewhat stiff. No jugular venous distention. CHEST: Equal expansion bilaterally. LUNGS: Clear to auscultation. HEART: Regular rate and rhythm. ABDOMEN: Soft. No tenderness. EXTREMITIES: Reveal no edema. LYMPHATICS: He has a palpable left cervical node. LABORATORY DATA: In addition to what is stated above in regard to his the finding is his cerebrospinal fluid, WBC 10.8, hemoglobin 10.3, hematocrit 35.4, platelets 305, sodium 141, potassium 3.6, chloride 95, CO2 is 34. BUN is 14, creatinine 0.6, AST is 129, alkaline phosphatase 171. IMPRESSION: 1. Change in mental status along with left facial weakness. The findings on the cerebrospinal fluid with significantly elevated protein and WBC, and significantly low glucose are very suspicious for meningitis, which could represent either bacteria or more likely viral meningitis in this immunocompromised gentleman. Certainly other opportunistic infections are in the differential diagnosis. Opportunistic infection with TEAM DRIVER involvement is certainly in the differential diagnosis. 2. Diffuse large B-cell lymphoma which has transformed from a low grade lymphoma. He is currently on treatment with REBOCH regimen. He has had a total of 4 cycles so far, I believe the last cycle was on 11/06/2016. Certainly receiving steroids and also Rituxan as part of his regimen makes him high risk for infectious complications including opportunistic infection. RECOMMENDATIONS: 1. I would obtain a brain MRI to make sure there is no underlying abscess or opportunistic infection missed on the CT scan of the brain and also rarely treatment with Rituxan may lead to progressive multifocal leukoencephalopathy, however, this is felt to be clinically a much less likely possibility. 2. We will start the patient on antibiotic coverage to cover possible TEAM DRIVER infectious complication along with antiviral therapy. I did discuss his case with Dr. Mays as well. Additional studies for herpes simplex virus and varicella zoster virus will be obtained on the cerebrospinal fluid.
--- NOTE | 2016-11-25 21:40 | CONS ---
DATE OF CONSULTATION: 11/25/2016 REASON FOR CONSULTATION: Possible meningitis. HISTORY OF PRESENT ILLNESS: The patient is a 51 -year-old male with past medical history significant for diffuse large B-cell lymphoma for which the patient has been undergoing chemotherapy with Dr. Stacy. The patient apparently still having some mostly of GI nature with nausea and vomiting after he ate out on weekends for which the patient was seen at the [facility]. Patient did have influenza that was negative, thought to have possible UTI. He was started on p.o. Cipro. However, the patient took one dose and persisted to having nausea and vomiting. Hence, he did not took any further antibiotic. Subsequently the patient presented back to the [facility] ER on 11/20/2016 with persistent symptoms of nausea and vomiting. The patient was hyperkalemic and dehydrated. The patient was admitted to the hospital for further work-up. During this hospital stay, the patient did develop facial weakness for which CT of the brain was negative for any acute intracranial abnormality. Subsequently, the patient has been evaluated by neurology. The patient was diagnosed with acute left Patel's palsy. The patient did have a left facial droop with a diagnosis of idiopathic Patel's palsy. The patient being treated with Medrol Dosepak. The patient apparently had noticed to have some mental status changes, which was attributed to possible hypertensive urgency. However, the patient did have an MRI of the brain done this morning, which did show chronic changes of cerebellar atrophy and normal pressure hydrocephalus, multiple white matter lesions that are nonspecific and certainly demyelinating disease in the differential diagnosis. The patient also had a lumbar puncture done, which was clear xanthochromic. The total nucleated cells for 250 RBC were 100. Glucose was 27 with protein more than 600 with concern for possible bacterial meningitis. The patient was started on acyclovir and ampicillin, ceftriaxone and ID was consulted for further recommendation regarding antibiotic therapy. At the time of evaluation, the patient is more awake and alert. He is back to his baseline. He knows he is in the hospital. The patient denies any headache to me. He continues to complain of some nausea but no vomiting and sister present at the bedside did mention that he did not eat his lunch. He denies having any chest pain. No abdominal pain and no diarrhea. REVIEW OF SYSTEMS: CONSTITUTIONAL: Positive for weakness. No fever has been recorded on this admission. EYES: No complaint. ENT: No complaint. RESPIRATORY: No complaint. CARDIOVASCULAR: No complaint. GENITOURINARY: No complaint. GASTROINTESTINAL: As per HPI. MUSCULOSKELETAL: No complaint. INTEGUMENTARY: Complaint. PSYCHOLOGICAL: No complaint. ENDOCRINE: No complaint. NEUROLOGICAL: As per HPI. PAST MEDICAL HISTORY: Diffuse large B-cell lymphoma, hypertension, osteoarthritis, PAST SURGICAL HISTORY: Mediport placement, lymph node biopsy, laparoscopy with biopsy. Teeth extraction. SOCIAL HISTORY: Remote history of smoking; quit back in 2016. No drinking or drug use. FAMILY HISTORY: Father has diabetes and [facility]. Organic brain disease. Mother with history of no major illnesses. ALLERGIES: No known drug allergies. Medications currently include the patient is on: 1. Tylenol. 2. Acyclovir. 3. Norvasc. 4. Ampicillin 2 grams q.8 hours. 5. Ceftriaxone 2 gm q12. 6. Catapres. 7. Lovenox. 8. Hydralazine. 9. Dilaudid. 10. Lactulose. 11. Ativan. 12. [place]. 13. Zofran. 14. Percocet. 15. Protonix. 16. Maalox. On examination, blood pressure is 152/98 with a pulse of 83, temperature 98, as mentioned previously, no fever recorded during this hospital stay for the last five days. He is 98% on room air. General description is a middle-age male lying in bed in no distress. HEENT examination shows pallor. There is no scleral icterus. Oral mucous membrane dry. NECK: Trachea central. There is no thyromegaly. LUNGS: Unlabored breathing. Clear to auscultation anteriorly. HEART: S1, S2 regular rate and rhythm. ABDOMEN: Soft, no tenderness. EXTREMITIES: No edema of feet. Examination of skin, no rash or mass palpable. NEUROLOGICAL: Patient awake, alert and oriented times three. Did have evidence of left facial droop. No neck rigidity. LABS: Hemoglobin is 11.3, white count 10.8, BUN of 14, creatinine 0.60. CSF finding xanthochromic. Clear with nucleated cells about 250, Neutrophil 15, 85, glucose 27, protein 600. Gram stain so far negative. DIAGNOSTIC IMPRESSION AND PLAN: 1. Patient with an abnormal CSF in this patient who does have large B-cell lymphoma mostly consistent with possible leptomeningeal spread of lymphoma rather than acute bacterial meningitis as the patient currently denies any headache to me. The patient remains to be afebrile and did not have any elevated white count and does not look toxic, now with the new diagnosis of Aptel's Palsy, underlying encephalitis one of the diagnoses, however, the patient with normal mentation and no fever making it less likely. His case was discussed in detail with the neurologist, Dr. Melara and with the attending physician, Dr. Darling. Clinical suspicion remains to be low for possible bacterial meningitis. CT findings more likely pointing towards possible leptomeningitis in spite of his large B-cell lymphoma. 2. To be on the safe side will recommend obtaining HSV DNA by PCR from the CSF that has already been collected. 3. May continue acyclovir and also we will add Vanco to cover for possible meningitis while waiting for the cultures to finalize. However, if the cultures are negative, will recommend discontinuation of the antibiotics. Clinical suspicion remains to be low for possible listeria and ampicillin can safely be discontinued. 4. Will follow up on the clinical condition and cultures to further adjust the medication if needed. Thank you for this consultation. Will follow this patient along with you. YAMINI
[2016-11-26] MEDS: ONDANSETRON 4 MG/2 ML VIAL IVP PRN (01:20)
[2016-11-26] MEDS: VANCOMYCIN 1,000 MG in SODIUM CHLORIDE 0.9% 250 ML IVPB SCH ×2 (06:15→17:55)
[2016-11-26] MEDS: ENOXAPARIN 40 MG/0.4 ML SYRINGE SQ SCH (07:28)
[2016-11-26] MEDS: cloNIDine HCL 0.1 MG TAB PO SCH ×2 (07:29→21:20)
[2016-11-26] MEDS: amLODIPine 10 MG TAB PO SCH (07:30)
[2016-11-26] MEDS: PANTOPRAZOLE 40 MG TABLET PO SCH (07:30)
[2016-11-26] MEDS: MORPHINE SULFATE ER 30 MG TABLET PO SCH ×2 (07:31→21:19)
[2016-11-26] MEDS: ACYCLOVIR SODIUM 600 MG in SODIUM CHLORIDE 0.9% 100 ML IVPB SCH ×3 (08:49→22:29)
[2016-11-26] MEDS: cefTRIAXone 2,000 MG in SODIUM CHLORIDE 0.9% 100 ML IVPB SCH ×2 (12:02→21:19)
--- NOTE | 2016-11-26 12:19 | PN ---
DATE OF SERVICE: 11/26/2016 This is a followup on previously dictated progress note yesterday. The patient did undergo a brain MRI yesterday, which revealed cerebral atrophy and normal pressure-type hydrocephalus and there was some nonspecific white matter changes and demyelinating white matter changes. However, the findings are not suggestive of progressive multifocal leukoencephalopathy which is a rare complication from treatment with Rituxan. Additional studies on the cerebrospinal fluid are still pending including herpes simplex. Additional study of the cerebrospinal fluid for viral meningitis is still pending. Certainly, we will also obtain additional study on the fluid for flow cytometry and cytology to rule out leptomeningeal involvement of lymphoma, as the cause of his neurological condition which has also remained suspected and highly considered in the differential diagnosis. However, the only finding, which are ( ) in the CSF analysis is the significantly low glucose level, although certainly remains in the differential diagnosis. At this point in time the patient is covered for possible meningitis, awaiting additional studies to rule out viral meningitis and also awaiting additional studies to rule out leptomeningeal lymphoma disease, which is suspected in the differential diagnosis. Thank you very much.
--- NOTE | 2016-11-26 13:17 | P.PN ---
Subjective This patient is a 51-year-old right hand white male who has a history of diffuse large B-cell lymphoma. He has been undergoing chemotherapy and completed his third cycle of treatment. He was admitted to Hospital with symptoms of nausea and vomiting and electrolyte abnormalities. He was transferred to the intensive care unit with suspect of possible acute stroke. Neurology was consulted yesterday for further evaluation he had evidence of an acute Patel's palsy on examination. He was started on short course of oral steroids for further management. He is being followed by Dr. Stacy for treatment of the B-cell lymphoma. He was transferred to the cardiac floor as he had ongoing evidence of uncontrolled hypertension. He had evidence of mild hypertensive encephalopathy. He has been started on Catapres. There is been no other changes in his overall medical condition. Patient to continue treatment of underlying Patel's palsy. His blood pressure remained slightly elevated today. His overall left-sided Patel's palsy has shown no worsening symptoms. He will require ongoing outpatient physical therapy over the next several months to really monitor his progress. There is been no significant improvement with this steroid use and this has been discontinued. Apparently the patient showed some ental status changes yesterday that was noted by family. To complete his workup he did undergo a lumbar puncture yesterday to rule out leptomeningeal involvement from his B-cell lymphoma. His spinal fluid was reviewed today and reveals RBC-85 WBC-250 CSF glucose -27th CSF protein greater than 600. Gram stain failed to reveal any organisms. Final pathology is still pending regarding possibility of lymphoma cells. Protein is quite elevated dense does suggest some form of inflammatory reaction. We will await the final pathology report on the CSF. is grossly elevated CSF protein does suggest possibility of leptomeningeal involvement from his large B-cell lymphoma. Case was discussed today with Dr. Darling. Dr. Stacy is recommending MRI of the brain to be done. We will await those results and we will await further recommendations from Dr. Smith. It is questionable whether the patient would benefit from intrathecal antibiotic therapy at this time. Continue to monitor the patient closely for hypertensive urgency at this time. Infectious disease did see the patient yesterday and he has been started on vancomycin. Their impression also is one of possible leptomeningeal spread of his lymphoma. He was sent for MRI of the brain with and without contrast. MRI reveals changes of cerebral atrophy and normal pressure-type hydrocephalus. Multiple white matter lesions were nonspecific in nature. No evidence of any enhancing lesions were noted. No evidence to suggest PML. His spinal fluid is also being checked for herpes encephalitis. He remains afebrile today. Cardiology is following the patient closely and we will await their further recommendations. Case was discussed at length today with the patient's and several family members at bedside. We will await further recommendations from infectious disease in regards to the spinal fluid results. He remains afebrile at this time. Dr. Stacy will be seeing the patient tomorrow and we will await his further assessment and recommendations. Family is aware of this patient's very guarded prognosis at this time. We will continue close neurological follow-up for the patient. His overall prognosis at this time remains very guarded. Objective - Vital Signs Vital signs: Vital Signs Temp 98.1 F 11/26/16 07:00 Pulse 76 11/26/16 07:00 Resp 18 11/26/16 07:00 BP 197/99 11/26/16 07:00 Pulse Ox 97 11/26/16 07:00 Intake & Output 11/25/16 11/26/16 11/26/16 18:59 06:59 18:59 Intake Total 320 Balance 320 Intake: IV 120 ns@20 120 Intake, IV Titration 200 Amount Acyclovir Sodium 600 mg 100 In Sodium Chloride 0.9% 100 ml @ 100 mls/hr IVPB Q8H [facility] Rx#:[id number] cefTRIAXone 2,000 mg In 100 Sodium Chloride 0.9% 100 ml @ 100 mls/hr IVPB Q12HR [facility] Rx#:[id number] Other: Voiding Method Bedside Commode Bedside Commode Urinal # Voids 1 - Exam Physical examination: PHYSICAL EXAMINATION: Patient is resting comfortably in bed. VITAL SIGNS: Blood pressure is [197/90]. Heart rate is [76]. Respiration is [18] . Temperature is [98.1]. HEENT: Head is atraumatic, neck is supple, there were no carotid bruits. CHEST: Lungs are clear to auscultation and percussion. CARDIAC: S1, S2 normal rate and rhythm. There is no murmur. ABDOMEN: Soft and nontender. Bowel sounds are present. EXTREMITIES: There is no pedal edema. Peripheral pulses are present. Neurological examination: Patient's neurological examination is unchanged from yesterday. He has a left sided Patel's palsy on examination. - Labs CBC & Chem 7: 11/25/16 06:35 11/25/16 06:35 Labs: Microbiology - Last 24 Hours (Table) 11/24/16 21:30 CSF Gram Stain - Preliminary Cerebral Spinal Fluid CSF Culture - Preliminary Assessment and Plan (1) Facial paralysis/[place] palsy Status: Acute Code(s): G51.0 - PATEL'S PALSY (2) Diffuse large B-cell lymphoma of lymph nodes of multiple regions Status: Chronic Code(s): C83.38 - DIFFUSE LARGE B-CELL LYMPHOMA, LYMPH NODES OF MULTIPLE SITES Plan: This patient is a 51-year-old male who was initially evaluated for an acute Patel 's palsy. He subsequently has shown increasing signs of confusion and for this reason underwent a lumbar puncture for further assessment of leptomeningeal spread of his cancer. He also underwent MRI of the brain yesterday which results failed to reveal any enhancing lesions. There was evidence of cerebral atrophy and normal pressure-type hydrocephalus. No evidence of enhancing brain lesions. There was no evidence of suggest PML. His spinal fluid results revealed a very elevated CSF protein. For this reason there was concern for possibility of leptomeningeal carcinomatosis. We're waiting further recommendations from infectious disease and Dr. Stacy. Spinal fluid results for HSV are still pending. Patient continues to have generalized weakness. There is been no significant improvement in his overall mental status. His overall prognosis at this time remains very guarded. Case was discussed at length today at bedside with his and several family members. All of their questions were answered. They're aware of his very guarded condition.
[2016-11-26] MEDS: SODIUM CHLORIDE 0.9% 1,000 ML IV SCH (14:34)
--- NOTE | 2016-11-26 17:03 | P.PN ---
Subjective 51-year-old gentleman that is undergoing treatment for large B-cell lymphoma comes in to the hospital with complaints of intractable nausea/vomiting. Patient was noted to have severe hypokalemia on admission. Patient underwent replacement. Patient was also noted to have a Patel spells on the left side. Currently patient is symptomatically improved. However over the course last 48 hours patient's blood pressure was elevated and was noted to have some changes with encephalopathy secondary to that. This a.m. patient was comfortably sitting up was able to tolerate diet and fluids as well. Denies having any additional complaints at this time. More awake is answering questions. however according to the family, there is personality change. some change indecision making. 11/25/2016 Patient is awake answering some questions. Denies having any headache, blurry vision, chest pain, nausea, vomiting or diarrhea. 11/26/2016 Patient is awake. Denies having any additional complaints. Family was at bedside. Objective - Vital Signs Vital signs: Vital Signs Temp 97.7 F 11/26/16 14:47 Pulse 80 11/26/16 14:47 Resp 18 11/26/16 14:47 BP 163/93 11/26/16 15:54 Pulse Ox 98 11/26/16 14:47 Intake & Output 11/25/16 11/26/16 11/26/16 18:59 06:59 18:59 Intake Total 320 530 Balance 320 530 Intake: IV 120 530 Acyclovir Sodium 600 mg 100 In Sodium Chloride 0.9% 100 ml @ 100 mls/hr IVPB Q8H [facility] Rx#:[id number] Vancomycin 1,000 mg In 250 Sodium Chloride 0.9% 250 ml @ 125 mls/hr IVPB Q12H [facility] Rx#:[id number] cefTRIAXone 2,000 mg In 100 Sodium Chloride 0.9% 100 ml @ 100 mls/hr IVPB Q12HR [facility] Rx#:[id number] ns@20 120 80 Intake, IV Titration 200 Amount Acyclovir Sodium 600 mg 100 In Sodium Chloride 0.9% 100 ml @ 100 mls/hr IVPB Q8H [facility] Rx#:[id number] cefTRIAXone 2,000 mg In 100 Sodium Chloride 0.9% 100 ml @ 100 mls/hr IVPB Q12HR [facility] Rx#:[id number] Other: Voiding Method Bedside Commode Bedside Commode Urinal # Voids 1 - Exam Physical exam Gen. appearance oriented 3 in no distress Neck is supple no JVD Face a left-sided Patel spell palsy consistent with the facial droop and mild lid lag but is noted however improved from admission Lungs good air entry clear to auscultation no rhonchi or wheezing Heart S1-S2 heard regular rate and rhythm no murmurs appreciated Abdomen is soft nontender no organomegaly bowel sounds are intact Neurologically cranial nerves II-12 grossly intact no focal motor or sensory deficits noted Skin no abnormalities appreciated - Labs CBC & Chem 7: 11/25/16 06:35 11/25/16 06:35 Labs: Microbiology - Last 24 Hours (Table) 11/24/16 21:30 CSF Gram Stain - Preliminary Cerebral Spinal Fluid CSF Culture - Preliminary Assessment and Plan Plan: #1 accelerated hypertension with hypertensive encephalopathy #2 Patel's palsy #3 large B-cell lymphoma #4 hypokalemia #5 intractable nausea/vomiting #6 chronic pain syndrome Plan csf analysis noted significant protein. Await testing including's Gram stain. Await pathology results and immunofixation. MRI results are noted. Await cytology day and leptomeningeal spread to be ruled out. Prognosis is extremely poor
--- NOTE | 2016-11-26 21:17 | P.PN ---
Subjective Principal diagnosis: Altered mental status 51-year-old male who has the extensive past medical history related to his diffuse large B-cell lymphoma and has been receiving chemotherapy with Dr. Stacy. Was having difficulties with tolerance of his chemotherapy with nausea and emesis. Recently had a urinary tract infection was treated with a dose of ciprofloxacin which he did not tolerate. Recently was having difficulties with dehydration and hyperkalemia. He also was on evidence of an acute Patel's palsy. He was treated with a Medrol Dosepak and I do believe antiviral therapy. At this admission he had altered mental status which was thought to be possibly due to his markedly elevated blood pressure. However due to his history lumbar puncture was performed. A markedly abnormal fluid was found with evidence of significant amounts of white blood cells, as well as elevated protein and hypoglycorrhachia. At the time of the call for consult antibiotic therapy was initiated with ceftriaxone ampicillin and acyclovir, however at the time of the consult it was discussed with the oncologist that a noninfectious etiology was of great concern given his history in that leptomeninges involvement of his lymphoma could result in the abnormal CSF findings. Objective - Vital Signs Vital signs: Vital Signs Temp 97.7 F 11/26/16 14:47 Pulse 80 11/26/16 14:47 Resp 18 11/26/16 14:47 BP 163/93 11/26/16 15:54 Pulse Ox 98 11/26/16 14:47 Intake & Output 11/26/16 11/26/16 11/27/16 06:59 18:59 06:59 Intake Total 320 530 Balance 320 530 Intake: IV 120 530 Acyclovir Sodium 600 mg 100 In Sodium Chloride 0.9% 100 ml @ 100 mls/hr IVPB Q8H [facility] Rx#:[id number] Vancomycin 1,000 mg In 250 Sodium Chloride 0.9% 250 ml @ 125 mls/hr IVPB Q12H [facility] Rx#:[id number] cefTRIAXone 2,000 mg In 100 Sodium Chloride 0.9% 100 ml @ 100 mls/hr IVPB Q12HR [facility] Rx#:[id number] ns@20 120 80 Intake, IV Titration 200 Amount Acyclovir Sodium 600 mg 100 In Sodium Chloride 0.9% 100 ml @ 100 mls/hr IVPB Q8H [facility] Rx#:[id number] cefTRIAXone 2,000 mg In 100 Sodium Chloride 0.9% 100 ml @ 100 mls/hr IVPB Q12HR [facility] Rx#:[id number] Other: Voiding Method Bedside Commode Bedside Commode Urinal - Exam Cachectic 51-year-old male who has alopecia is not interacting well with the observer. Only eye-opening HEENT: Anicteric conjunctiva are pale , moist nasal mucosa grossly intact without significant lesions, there is no thrush. Neck: The neck is supple without significant lymphadenopathy or thyromegaly. Lungs: Good bilateral air entry without significant crackles or wheezing. There is no significant bronchial sounds. There is no egophony or dullness. Heart: Regular rate and rhythm with an audible S1-S2, no S3 no S4. There is no significant murmur click or rub, PMI was nondisplaced. Abdomen: Positive bowel sounds soft and nontender without palpable masses or organomegaly. There was no guarding or rebound. Extremities: The upper extremities have excellent pulses they are symmetric, no significant petechiae or telangiectasia. No splinter hemorrhages were noted. The lower extremities are free from significant edema. The peripheral pulses were 2+ and symmetric. Neuro: Arousable. Opens eyes to stimulation. Follows no commands. - Labs CBC & Chem 7: 11/25/16 06:35 11/25/16 06:35 Labs: Microbiology - Last 24 Hours (Table) 11/24/16 21:30 CSF Gram Stain - Preliminary Cerebral Spinal Fluid CSF Culture - Preliminary Laboratory Results WBC 10.8 k/uL (3.8-10.6) H 11/25/16 06:35 RBC 3.94 m/uL (4.30-5.90) L 11/25/16 06:35 Hgb 11.3 gm/dL (13.0-17.5) L 11/25/16 06:35 Hct 35.4 % (39.0-53.0) L 11/25/16 06:35 MCV 89.8 fL (80.0-100.0) 11/25/16 06:35 MCH 28.6 pg (25.0-35.0) 11/25/16 06:35 MCHC 31.8 g/dL (31.0-37.0) 11/25/16 06:35 RDW 16.2 % (11.5-15.5) H 11/25/16 06:35 Plt Count 305 k/uL (150-450) 11/25/16 06:35 Neutrophils % 91 % 11/25/16 06:35 Lymphocytes % 3 % 11/25/16 06:35 Monocytes % 5 % 11/25/16 06:35 Eosinophils % 0 % 11/25/16 06:35 Basophils % 0 % 11/25/16 06:35 Neutrophils # 9.8 k/uL (1.3-7.7) H 11/25/16 06:35 Lymphocytes # 0.3 k/uL (1.0-4.8) L 11/25/16 06:35 Monocytes # 0.5 k/uL (0-1.0) 11/25/16 06:35 Eosinophils # 0.0 k/uL (0-0.7) 11/25/16 06:35 Basophils # 0.0 k/uL (0-0.2) 11/25/16 06:35 Manual Slide Review Performed 11/24/16 05:50 Toxic Granulation Present 11/24/16 05:50 Hypochromasia Slight 11/25/16 06:35 Poikilocytosis Slight 11/25/16 06:35 Anisocytosis Slight 11/25/16 06:35 PT 12.2 sec (9.0-12.0) H 11/21/16 03:00 INR 1.2 (<1.1) 11/21/16 03:00 APTT 22.2 sec (22.0-30.0) 11/21/16 03:00 Sodium 141 mmol/L (137-145) 11/25/16 06:35 Potassium 3.6 mmol/L (3.5-5.1) 11/25/16 06:35 Chloride 95 mmol/L (98-107) L 11/25/16 06:35 Carbon Dioxide 34 mmol/L (22-30) H 11/25/16 06:35 Anion Gap 12 mmol/L 11/25/16 06:35 BUN 14 mg/dL (9-20) 11/25/16 06:35 Creatinine 0.60 mg/dL (0.66-1.25) L 11/25/16 06:35 Est GFR (MDRD) Af Amer >60 (>60 ml/min/1.73 sqM) 11/25/16 06:35 Est GFR (MDRD) Non-Af >60 (>60 ml/min/1.73 sqM) 11/25/16 06:35 Glucose 114 mg/dL (74-99) H 11/25/16 06:35 POC Glucose (mg/dL) 113 mg/dL (75-99) H 11/22/16 04:39 POC Glu Medical Reviewer Aysha Jones 11/22/16 04:39 Plasma Lactic Acid Taj 0.9 mmol/L (0.7-2.0) 11/20/16 01:55 Calcium 9.5 mg/dL (8.4-10.2) 11/25/16 06:35 Phosphorus 2.9 mg/dL (2.5-4.5) 11/21/16 03:00 Magnesium 2.0 mg/dL (1.6-2.3) 11/21/16 03:00 Total Bilirubin 1.2 mg/dL (0.2-1.3) 11/25/16 06:35 AST 42 U/L (17-59) 11/25/16 06:35 ALT 129 U/L (21-72) H 11/25/16 06:35 Alkaline Phosphatase 171 U/L (38-126) H 11/25/16 06:35 Creatine Kinase <20 U/L (55-170) L 11/21/16 03:00 Total Creatine Kinase <20 U/L (55-170) L 11/20/16 01:55 CK-MB (CK-2) <0.2 ng/mL (0.0-2.4) 11/20/16 01:55 CK-MB (CK-2) Rel Index 11/20/16 01:55 Troponin I <0.012 ng/mL (0.000-0.034) 11/20/16 01:55 Total Protein 6.3 g/dL (6.3-8.2) 11/25/16 06:35 Albumin 4.0 g/dL (3.5-5.0) 11/25/16 06:35 Amylase <30 U/L (30-110) L 11/20/16 01:55 Lipase <10 U/L (23-300) L 11/20/16 01:55 Urine Color Yellow 11/20/16 12:35 Urine Appearance Clear (Clear) 11/20/16 12:35 Urine pH 6.0 (5.0-8.0) 11/20/16 12:35 Ur Specific Brutus 1.015 (1.001-1.035) 11/20/16 12:35 Urine Protein Negative (Negative) 11/20/16 12:35 Urine Glucose (UA) Negative (Negative) 11/20/16 12:35 Urine Ketones 2+ (Negative) H 11/20/16 12:35 Urine Blood Negative (Negative) 11/20/16 12:35 Urine Nitrate Negative (Negative) 11/20/16 12:35 Urine Bilirubin Negative (Negative) 11/20/16 12:35 Urine Urobilinogen <2.0 mg/dL (<2.0) 11/20/16 12:35 Ur Leukocyte Esterase Negative (Negative) 11/20/16 12:35 CSF Tube Number 4 11/24/16 21:30 CSF Volume 1.0 11/24/16 21:30 CSF Appearance Clear 11/24/16 21:30 CSF Color Xanthochromic 11/24/16 21:30 CSF RBC 85 u/L (0-10) H 11/24/16 21:30 CSF Tot Nucleated Cells 250 u/L (0-5) H 11/24/16 21:30 CSF Mononuclear WBCs % 85 % 11/24/16 21:30 CSF Polynuclear WBCs % 15 % 11/24/16 21:30 CSF Fresh RBCs 100 % 11/24/16 21:30 CSF Glucose 27 mg/dL (40-70) L 11/24/16 21:30 CSF Total Protein >600 mg/dL (12-60) H 11/24/16 21:30 Microbiology 11/24/16 21:30 Cerebral Spinal Fluid CSF Gram Stain - Preliminary 11/24/16 21:30 Cerebral Spinal Fluid CSF Culture - Preliminary 11/20/16 01:55 Blood Blood Culture - Final No Growth after 144 hours As noted the Gram stain shows evidence of abnormal cells await pathology Assessment and Plan (1) Altered mental state Narrative/Plan: 51-year-old male who has diffuse large B-cell lymphoma receiving chemotherapy. Resents with altered mental status. As noted lumbar puncture was performed that shows a markedly abnormal fluid with high cell count, elevated protein, and hypoglycorrhachia. The Gram stain is reviewed and shows evidence of no severe bacteria but many early cells are noted. 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 Patient is being followed closely by oncology. As far as antibiotic therapy this is continuing while cultures are pending. Also waiting PCR for Aegis V1 into an varicella-zoster given his history of recent Patel's palsy which is often associated with a viral process. The CSF findings would not be indicative of meningeal encephalitis from herpetic infection but given his presentation is of concern. Cultures will be monitored. Status: Acute (2) Facial paralysis/[place] palsy Status: Acute (3) Abnormal finding in CSF Status: Acute
[2016-11-27] MEDS: oxyCODONE-APAP 10-325MG 1 EACH TAB PO PRN (02:36)
[2016-11-27] MEDS ORDERED: VANCOMYCIN TROUGH DUE 1 EACH MISC MISCELLANE ONE (05:00)
[2016-11-27] MEDS: VANCOMYCIN 1,000 MG in SODIUM CHLORIDE 0.9% 250 ML IVPB SCH ×3 (05:44→23:38)
[2016-11-27] MEDS: ONDANSETRON 4 MG/2 ML VIAL IVP PRN ×2 (06:07→15:20)
[2016-11-27 07:57] LABS: Varicella zoster Virus by PCR Not detected (Not detected)
[2016-11-27] MEDS: PANTOPRAZOLE 40 MG TABLET PO SCH (08:07)
[2016-11-27] MEDS: ACYCLOVIR SODIUM 600 MG in SODIUM CHLORIDE 0.9% 100 ML IVPB SCH ×3 (08:07→22:18)
[2016-11-27] MEDS: MORPHINE SULFATE ER 30 MG TABLET PO SCH ×2 (08:08→21:07)
[2016-11-27] MEDS: cloNIDine HCL 0.1 MG TAB PO SCH ×2 (08:08→21:07)
[2016-11-27] MEDS: ENOXAPARIN 40 MG/0.4 ML SYRINGE SQ SCH (08:08)
[2016-11-27] MEDS: amLODIPine 10 MG TAB PO SCH (08:10)
[2016-11-27] MEDS: cefTRIAXone 2,000 MG in SODIUM CHLORIDE 0.9% 100 ML IVPB SCH ×2 (10:39→20:18)
--- NOTE | 2016-11-27 14:34 | PN ---
DATE OF SERVICE: 11/27/2016 Reason for followup is abnormal CSF with question of active meningitis. INTERVAL HISTORY: The patient is afebrile. The patient currently denies having any headache. Complaining of some gastric upset. especially if he takes the pills oral intake remains to be poor. Denies having any chest pain or shortness of breath or cough. No diarrhea. On examination, blood pressure is 155/96 with a pulse of 84, temperature 97.5, he is 98% on room air. General description is a middle-age male lying in bed in no distress. RESPIRATORY SYSTEM: Unlabored breathing. Clear to auscultation anteriorly. HEART: S1, S2. Regular rate and rhythm. ABDOMEN: Soft, mild pain in the epigastric area. EXTREMITIES: No edema of the feet. LABS: Hemoglobin is 11.3, white count of 10.8. The stool was done on 11/25. The CSF cultures so far pending, CSF HSV pending the Varicella-Zoster serologies are pending. DIAGNOSTIC IMPRESSION AND PLAN: 1. Patient with intractable nausea, vomiting and also having some mental status changes even though no fever. He did have CSF examination, we did low glucose and high protein; however, the patient did have underlying lymphoma and a question of likely leptomeningeal spread rather than a bacterial meningitis as the patient does not look toxic, is not complaining of headache and no fever. We are waiting for the CSF cytology. If it is positive for malignancy and if the cultures are negative, antibiotic can be discontinued. 2. Patient with Patel's palsy left side, awaiting the VZV HSV DNA. If negative, acyclovir can be safely discontinued. Family present at beside. Their questions were answered. YAMINI
--- NOTE | 2016-11-27 17:11 | P.PN ---
Subjective Principal diagnosis: nausea and vomiting Pt seen today in follow up, he is out of ICU. He is weak, unsteady with out assistance just sitting up in bed, he was aroused easily and is oriented, he was able to eat soup with crackers, he is having a little trouble with liquids, drooling and coughing. Denies fevers, oral irritation, chest pain, SOB, diarrhea or constipation, he is not walking, going to bedside commode for toileting. Objective - Vital Signs Vital signs: Vital Signs Temp 97 F L 11/27/16 15:00 Pulse 88 11/27/16 15:00 Resp 16 11/27/16 15:00 BP 161/107 11/27/16 15:00 Pulse Ox 95 11/27/16 15:00 Intake & Output 11/26/16 11/27/16 11/27/16 18:59 06:59 18:59 Intake Total 530 1070 Balance 530 1070 Weight 53.3 kg Intake: IV 530 710 Acyclovir Sodium 600 mg 100 200 In Sodium Chloride 0.9% 100 ml @ 100 mls/hr IVPB Q8H [facility] Rx#:[id number] Vancomycin 1,000 mg In 250 250 Sodium Chloride 0.9% 250 ml @ 125 mls/hr IVPB Q12H [facility] Rx#:[id number] cefTRIAXone 2,000 mg In 100 100 Sodium Chloride 0.9% 100 ml @ 100 mls/hr IVPB Q12HR [facility] Rx#:[id number] ns@20 80 160 Oral 360 Other: Voiding Method Bedside Commode Bedside Commode Bedside Commode Urinal Urinal Urinal # Voids 2 2 - Constitutional General appearance: Present: cooperative, mild distress, thin - EENT EENT Comment(s): pt is unable to completely close left eye, dry mucus membranes - Respiratory Respiratory: bilateral: CTA - Cardiovascular Rhythm: regular Heart sounds: normal: S1, S2 - Peripheral edema leg Peripheral Edema: bilateral: None - Gastrointestinal General gastrointestinal: Present: normal bowel sounds, soft. Absent: absent bowel sounds, decreased bowel sounds, distended, hepatomegaly, hyperactive bowel sounds, organomegaly, rigid, scaphoid, splenomegaly, tenderness, umbilical hernia, ventral hernia - Integumentary Integumentary: Present: decreased turgor - Neurologic Neurologic Comment(s): left facial deficits persist, extremity strength is weak but equal bilaterally - Musculoskeletal Musculoskeletal: Present: generalized weakness - Psychiatric Psychiatric: Present: A&O x's 3, intact judgment & insight - Labs CBC & Chem 7: 11/25/16 06:35 11/25/16 06:35 Labs: Microbiology - Last 24 Hours (Table) 11/24/16 21:30 CSF Gram Stain - Preliminary Cerebral Spinal Fluid CSF Culture - Preliminary Assessment and Plan (1) Dehydration Narrative/Plan: Speech therapy eval for possible need for thickened liquids, IV fluids continue , pt appetite and oral intake are decreased. Strict I&O ordered for evaluation. Status: Resolved (2) Hypokalemia Status: Resolved (3) Nausea & vomiting Narrative/Plan: Stable, requiring anti-emetics, continue supportive care Status: Acute (4) Diffuse large B-cell lymphoma of lymph nodes of multiple regions Narrative/Plan: Currently awaiting flow cytomety on CSF. Concerning findings so far-WBCs and high protein present. Due to lack of fevers and clinical evaluation of pt bacterial/viral meningitis is less likely but ID is following and pt is on abx coverage. Status: Chronic Plan: l
[2016-11-27] MEDS: hydrALAZINE HCL 20 MG/ML 1 ML VIAL IVP PRN ×2 (17:24→23:38)
--- NOTE | 2016-11-27 17:53 | P.PN ---
Subjective 51-year-old gentleman that is undergoing treatment for large B-cell lymphoma comes in to the hospital with complaints of intractable nausea/vomiting. Patient was noted to have severe hypokalemia on admission. Patient underwent replacement. Patient was also noted to have a Patel spells on the left side. Currently patient is symptomatically improved. However over the course last 48 hours patient's blood pressure was elevated and was noted to have some changes with encephalopathy secondary to that. This a.m. patient was comfortably sitting up was able to tolerate diet and fluids as well. Denies having any additional complaints at this time. More awake is answering questions. however according to the family, there is personality change. some change indecision making. 11/25/2016 Patient is awake answering some questions. Denies having any headache, blurry vision, chest pain, nausea, vomiting or diarrhea. 11/26/2016 Patient is awake. Denies having any additional complaints. Family was at bedside. 2016 Pt is arousable Decreased appetite Denies additional complaints Objective - Vital Signs Vital signs: Vital Signs Temp 97 F L 11/27/16 15:00 Pulse 88 11/27/16 15:00 Resp 16 11/27/16 15:00 BP 161/107 11/27/16 15:00 Pulse Ox 95 11/27/16 15:00 Intake & Output 11/26/16 11/27/16 11/27/16 18:59 06:59 18:59 Intake Total 530 1070 Balance 530 1070 Weight 53.3 kg Intake: IV 530 710 Acyclovir Sodium 600 mg 100 200 In Sodium Chloride 0.9% 100 ml @ 100 mls/hr IVPB Q8H [facility]JAY Rx#:[id number] Vancomycin 1,000 mg In 250 250 Sodium Chloride 0.9% 250 ml @ 125 mls/hr IVPB Q12H [facility]AY Rx#:[id number] cefTRIAXone 2,000 mg In 100 100 Sodium Chloride 0.9% 100 ml @ 100 mls/hr IVPB Q12HR [facility]JAY Rx#:[id number] ns@20 80 160 Oral 360 Other: Voiding Method Bedside Commode Bedside Commode Bedside Commode Urinal Urinal Urinal # Voids 2 2 - Exam Physical exam Gen. appearance oriented 3 in no distress Neck is supple no JVD Face a left-sided Patel spell palsy consistent with the facial droop and mild lid lag but is noted however improved from admission Lungs good air entry clear to auscultation no rhonchi or wheezing Heart S1-S2 heard regular rate and rhythm no murmurs appreciated Abdomen is soft nontender no organomegaly bowel sounds are intact Neurologically cranial nerves II-12 grossly intact no focal motor or sensory deficits noted Skin no abnormalities appreciated - Labs CBC & Chem 7: 11/25/16 06:35 11/25/16 06:35 Labs: Microbiology - Last 24 Hours (Table) 11/24/16 21:30 CSF Gram Stain - Preliminary Cerebral Spinal Fluid CSF Culture - Preliminary Assessment and Plan Plan: #1 accelerated hypertension with hypertensive encephalopathy #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 Pt's oral intake has decreased significanly Cytometry from CSF appears to show leptomeningeal spread Supportive care Discussed with family. It appears they feel that pt has given up and does not want to try to eat Discussed options including keeping pt comfortable which may be appropriate at this time. Pt will be seen by Dr Ireland from [facility]. Family meeting Cma per oncology.
--- NOTE | 2016-11-27 19:49 | P.PN ---
Subjective This patient is a 51-year-old right hand white male who has a history of diffuse large B-cell lymphoma. He has been undergoing chemotherapy and completed his third cycle of treatment. He was admitted to Hospital with symptoms of nausea and vomiting and electrolyte abnormalities. He was transferred to the intensive care unit with suspect of possible acute stroke. Neurology was consulted yesterday for further evaluation he had evidence of an acute Patel's palsy on examination. He was started on short course of oral steroids for further management. He is being followed by Dr. Stacy for treatment of the B-cell lymphoma. He was transferred to the cardiac floor as he had ongoing evidence of uncontrolled hypertension. He had evidence of mild hypertensive encephalopathy. He has been started on Catapres. There is been no other changes in his overall medical condition. Patient to continue treatment of underlying Patel's palsy. His blood pressure remained slightly elevated today. His overall left-sided Patel's palsy has shown no worsening symptoms. He will require ongoing outpatient physical therapy over the next several months to really monitor his progress. There is been no significant improvement with this steroid use and this has been discontinued. Apparently the patient showed some ental status changes yesterday that was noted by family. To complete his workup he did undergo a lumbar puncture yesterday to rule out leptomeningeal involvement from his B-cell lymphoma. His spinal fluid was reviewed today and reveals RBC-85 WBC-250 CSF glucose -27th CSF protein greater than 600. Gram stain failed to reveal any organisms. Final pathology is still pending regarding possibility of lymphoma cells. Protein is quite elevated dense does suggest some form of inflammatory reaction. We will await the final pathology report on the CSF. is grossly elevated CSF protein does suggest possibility of leptomeningeal involvement from his large B-cell lymphoma. Case was discussed today with Dr. Darling. Dr. Stacy is recommending MRI of the brain to be done. We will await those results and we will await further recommendations from Dr. Smith. It is questionable whether the patient would benefit from intrathecal antibiotic therapy at this time. Continue to monitor the patient closely for hypertensive urgency at this time. Infectious disease did see the patient yesterday and he has been started on vancomycin. Their impression also is one of possible leptomeningeal spread of his lymphoma. He was sent for MRI of the brain with and without contrast. MRI reveals changes of cerebral atrophy and normal pressure-type hydrocephalus. Multiple white matter lesions were nonspecific in nature. No evidence of any enhancing lesions were noted. No evidence to suggest PML. His spinal fluid is also being checked for herpes encephalitis. He remains afebrile today. Cardiology is following the patient closely and we will await their further recommendations. Case was discussed at length today with the patient's and several family members at bedside. We will await further recommendations from infectious disease in regards to the spinal fluid results. He remains afebrile at this time. Dr. Stacy will be seeing the patient tomorrow and we will await his further assessment and recommendations. The patient underwent spinal fluid analysis with flow cytometry. Results were available today and come back positive for B-cell population consistent with leptomeningeal spread of his B- cell lymphoma to the HOGSHEAD WEIGHER. Patient was very discouraged on these recent spinal fluid results. He is being considered for comfort care measures. We will await further decisions from the family and his treating physician. Family is aware of this patient's very guarded prognosis at this time. We will continue close neurological follow-up for the patient. His overall prognosis at this time remains very guarded. Objective - Vital Signs Vital signs: Vital Signs Temp 97 F L 11/27/16 15:00 Pulse 88 11/27/16 15:00 Resp 16 11/27/16 15:00 BP 161/107 11/27/16 15:00 Pulse Ox 95 11/27/16 15:00 Intake & Output 11/26/16 11/27/16 11/27/16 18:59 06:59 18:59 Intake Total 530 1070 Balance 530 1070 Weight 53.3 kg Intake: IV 530 710 Acyclovir Sodium 600 mg 100 200 In Sodium Chloride 0.9% 100 ml @ 100 mls/hr IVPB Q8H [facility]JAY Rx#:[id number] Vancomycin 1,000 mg In 250 250 Sodium Chloride 0.9% 250 ml @ 125 mls/hr IVPB Q12H [facility]JAY Rx#:[id number] cefTRIAXone 2,000 mg In 100 100 Sodium Chloride 0.9% 100 ml @ 100 mls/hr IVPB Q12HR [facility]JAY Rx#:[id number] ns@20 80 160 Oral 360 Other: Voiding Method Bedside Commode Bedside Commode Bedside Commode Urinal Urinal Urinal # Voids 2 2 - Exam Physical examination: PHYSICAL EXAMINATION: Patient is resting comfortably in bed. VITAL SIGNS: Blood pressure is [161/107]. Heart rate is [88]. Respiration is [16 ]. Temperature is [97.0]. HEENT: Head is atraumatic, neck is supple, there were no carotid bruits. CHEST: Lungs are clear to auscultation and percussion. CARDIAC: S1, S2 normal rate and rhythm. There is no murmur. ABDOMEN: Soft and nontender. Bowel sounds are present. EXTREMITIES: There is no pedal edema. Peripheral pulses are present. Neurological examination: Patient's neurological examination is unchanged from yesterday. He has a left sided Patel's palsy on examination. - Labs CBC & Chem 7: 11/25/16 06:35 11/25/16 06:35 Labs: Microbiology - Last 24 Hours (Table) 11/24/16 21:30 CSF Gram Stain - Preliminary Cerebral Spinal Fluid CSF Culture - Preliminary Assessment and Plan (1) Facial paralysis/[place]vin palsy Status: Acute Code(s): G51.0 - PATEL'S PALSY (2) Diffuse large B-cell lymphoma of lymph nodes of multiple regions Status: Chronic Code(s): C83.38 - DIFFUSE LARGE B-CELL LYMPHOMA, LYMPH NODES OF MULTIPLE SITES Plan: This patient is a 51-year-old right-handed white male who has a known history of large B-cell lymphoma. He underwent spinal fluid analysis for further assessment of mental status changes. His flow cytometry results became available today and are consistent with B-cell lymphoma in the spinal fluid. This is consistent with leptomeningeal spread of his B-cell lymphoma. Patient now very ejected with these findings. He is being considered for further treatment options and also possibility of comfort care measures. We will await further decisions from the oncology team in terms of further treatment. His Patel's palsy continues to show no significant change or improvement. We will continue close neurological follow-up for this patient during this admission. His overall prognosis at this time remains very guarded.
[2016-11-28] MEDS: ONDANSETRON 4 MG/2 ML VIAL IVP PRN (03:30)
[2016-11-28] MEDS: HYDROmorphone 1 MG/ML 1 ML SYRINGE IVP PRN ×4 (04:31→19:28)
[2016-11-28] MEDS: ACYCLOVIR SODIUM 600 MG in SODIUM CHLORIDE 0.9% 100 ML IVPB SCH ×2 (07:18→16:22)
[2016-11-28 07:58] LABS: Anion Gap 11 mmol/L; Blood Urea Nitrogen 12 mg/dL (9-20); Calcium 9.7 mg/dL (8.4-10.2); Carbon Dioxide 32 mmol/L (22-30); Chloride 101 mmol/L (98-107); Glucose 109 mg/dL (74-99); Non-African American GFR(MDRD) >60 (>60 ml/min/1.73 sqM); Sodium 144 mmol/L (137-145)
[2016-11-28 08:14] LABS: Potassium 2.8 mmol/L (3.5-5.1)
[2016-11-28] MEDS: amLODIPine 10 MG TAB PO SCH (08:33)
[2016-11-28] MEDS: cloNIDine HCL 0.1 MG TAB PO SCH ×2 (08:33→21:41)
[2016-11-28] MEDS: PANTOPRAZOLE 40 MG TABLET PO SCH (08:34)
[2016-11-28] MEDS: ENOXAPARIN 40 MG/0.4 ML SYRINGE SQ SCH (08:34)
[2016-11-28] MEDS: oxyCODONE-APAP 10-325MG 1 EACH TAB PO PRN (08:40)
[2016-11-28] MEDS: VANCOMYCIN 1,000 MG in SODIUM CHLORIDE 0.9% 250 ML IVPB SCH ×2 (09:02→17:10)
[2016-11-28] MEDS: MORPHINE SULFATE ER 30 MG TABLET PO SCH ×2 (10:14→21:42)
[2016-11-28] MEDS ORDERED: POTASSIUM CHLORIDE 20 MEQ in WATER FOR INJECTION 1 100ML.BAG IVPB STA (12:26)
[2016-11-28] MEDS: cefTRIAXone 2,000 MG in SODIUM CHLORIDE 0.9% 100 ML IVPB SCH (12:27)
[2016-11-28] MEDS ORDERED: POTASSIUM CHLORIDE 10 MEQ in WATER FOR INJECTION 1 100ML.BAG IVPB STA (15:33)
--- NOTE | 2016-11-28 17:42 | P.PN ---
Subjective Principal diagnosis: nausea and vomiting Pt seen today in follow up with his family at bedside, he continues to be very sleepy, the left facial deficit persists but he is able to talk. He was aroused easily and is oriented. Objective - Vital Signs Vital signs: Vital Signs Temp 97.6 F 11/28/16 14:38 Pulse 94 11/28/16 14:38 Resp 16 11/28/16 14:38 BP 140/82 11/28/16 14:38 Pulse Ox 96 11/28/16 14:38 Intake & Output 11/27/16 11/28/16 11/28/16 18:59 06:59 18:59 Intake Total 220 Output Total 300 Balance 220 -300 Weight 53.3 kg Intake: Oral 220 Output: Urine 300 Other: Voiding Method Bedside Commode Bedside Commode Bedside Commode Urinal Urinal Urinal # Voids 2 2 - Constitutional General appearance: Present: cooperative, no acute distress, thin - Respiratory Respiratory: bilateral: CTA (weak inspiratory effort) - Cardiovascular Heart sounds: normal: S1, S2 - Neurologic Neurologic Comment(s): left facial deficit persists, pt is very weak and unsteady just tying to sit at bedside, leans to the left - Musculoskeletal Musculoskeletal: Present: generalized weakness, left sided weakness - Psychiatric Psychiatric: Present: A&O x's 3, appropriate affect, intact judgment & insight - Labs CBC & Chem 7: 11/25/16 06:35 11/28/16 07:20 Labs: Abnormal Lab Results - Last 24 Hours (Table) 11/28/16 Range/Units 07:20 Potassium 2.8 L* (3.5-5.1) mmol/L Carbon Dioxide 32 H (22-30) mmol/L Creatinine 0.54 L (0.66-1.25) mg/dL Glucose 109 H (74-99) mg/dL Microbiology - Last 24 Hours (Table) 11/24/16 21:30 CSF Gram Stain - Preliminary Cerebral Spinal Fluid CSF Culture - Preliminary Assessment and Plan (1) Dehydration Narrative/Plan: Pt continues on IV fluids. Awaiting swallow evaluation, speech therapy recommendations for thickened liquids. Status: Resolved (2) Hypokalemia Narrative/Plan: Replacement protocol Status: Resolved (3) Nausea & vomiting Narrative/Plan: Stable and treated Status: Acute (4) Diffuse large B-cell lymphoma of lymph nodes of multiple regions Narrative/Plan: Pt has leptomeningeal disease. 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 Risks vs benefits of treatment, prognosis and life expectancy with and without treatment were discussed with pt and family, all questions answered. Pt would like to proceed with IT chemotherapy, orders will be sent for the same and LP will be coordinated with IR. Status: Chronic Plan: l
--- NOTE | 2016-11-28 18:53 | P.PN ---
Subjective This patient is a 51-year-old right hand white male who has a history of diffuse large B-cell lymphoma. He has been undergoing chemotherapy and completed his third cycle of treatment. He was admitted to Hospital with symptoms of nausea and vomiting and electrolyte abnormalities. He was transferred to the intensive care unit with suspect of possible acute stroke. Neurology was consulted yesterday for further evaluation he had evidence of an acute Patel's palsy on examination. He was started on short course of oral steroids for further management. He is being followed by Dr. Stacy for treatment of the B-cell lymphoma. He was transferred to the cardiac floor as he had ongoing evidence of uncontrolled hypertension. He had evidence of mild hypertensive encephalopathy. He has been started on Catapres. There is been no other changes in his overall medical condition. Patient to continue treatment of underlying Patel's palsy. His blood pressure remained slightly elevated today. His overall left-sided Patel's palsy has shown no worsening symptoms. He will require ongoing outpatient physical therapy over the next several months to really monitor his progress. There is been no significant improvement with this steroid use and this has been discontinued. Apparently the patient showed some ental status changes yesterday that was noted by family. To complete his workup he did undergo a lumbar puncture yesterday to rule out leptomeningeal involvement from his B-cell lymphoma. His spinal fluid was reviewed today and reveals RBC-85 WBC-250 CSF glucose -27th CSF protein greater than 600. Gram stain failed to reveal any organisms. Final pathology is still pending regarding possibility of lymphoma cells. Protein is quite elevated dense does suggest some form of inflammatory reaction. We will await the final pathology report on the CSF. is grossly elevated CSF protein does suggest possibility of leptomeningeal involvement from his large B-cell lymphoma. Case was discussed today with Dr. Darling. Dr. Stacy is recommending MRI of the brain to be done. We will await those results and we will await further recommendations from Dr. Smith. It is questionable whether the patient would benefit from intrathecal antibiotic therapy at this time. Continue to monitor the patient closely for hypertensive urgency at this time. Infectious disease did see the patient yesterday and he has been started on vancomycin. Their impression also is one of possible leptomeningeal spread of his lymphoma. He was sent for MRI of the brain with and without contrast. MRI reveals changes of cerebral atrophy and normal pressure-type hydrocephalus. Multiple white matter lesions were nonspecific in nature. No evidence of any enhancing lesions were noted. No evidence to suggest PML. His spinal fluid is also being checked for herpes encephalitis. He remains afebrile today. Cardiology is following the patient closely and we will await their further recommendations. Case was discussed at length today with the patient's and several family members at bedside. We will await further recommendations from infectious disease in regards to the spinal fluid results. He remains afebrile at this time. Dr. Stacy will be seeing the patient tomorrow and we will await his further assessment and recommendations. The patient underwent spinal fluid analysis with flow cytometry. Results were available today and come back positive for B-cell population consistent with leptomeningeal spread of his B- cell lymphoma to the MUSEUM HOST/HOSTESS. Patient was very discouraged on these recent spinal fluid results. He is being considered for comfort care measures. We will await further decisions from the family and his treating physician. Family is aware of this patient's very guarded prognosis at this time. The patient and his family have made a decision to proceed with intrathecal chemotherapy. Oncology is arranging for this to be done as soon as possible. We will continue close neurological follow-up for the patient. His overall prognosis at this time remains very guarded. Objective - Vital Signs Vital signs: Vital Signs Temp 97.6 F 11/28/16 14:38 Pulse 94 11/28/16 14:38 Resp 16 11/28/16 14:38 BP 140/82 11/28/16 14:38 Pulse Ox 96 11/28/16 14:38 Intake & Output 11/27/16 11/28/16 11/28/16 18:59 06:59 18:59 Intake Total 220 Output Total 300 Balance 220 -300 Weight 53.3 kg Intake: Oral 220 Output: Urine 300 Other: Voiding Method Bedside Commode Bedside Commode Bedside Commode Urinal Urinal Urinal # Voids 2 2 - Exam Physical examination: PHYSICAL EXAMINATION: Patient is resting comfortably in bed. VITAL SIGNS: Blood pressure is [140/82]. Heart rate is [94]. Respiration is [16] . Temperature is [97.7]. HEENT: Head is atraumatic, neck is supple, there were no carotid bruits. CHEST: Lungs are clear to auscultation and percussion. CARDIAC: S1, S2 normal rate and rhythm. There is no murmur. ABDOMEN: Soft and nontender. Bowel sounds are present. EXTREMITIES: There is no pedal edema. Peripheral pulses are present. Neurological examination: Patient's neurological examination is unchanged from yesterday. He has a left sided Patel's palsy on examination. Patient is easily arousable when he is sleeping. - Labs CBC & Chem 7: 11/25/16 06:35 11/28/16 07:20 Labs: Abnormal Lab Results - Last 24 Hours (Table) 11/28/16 Range/Units 07:20 Potassium 2.8 L* (3.5-5.1) mmol/L Carbon Dioxide 32 H (22-30) mmol/L Creatinine 0.54 L (0.66-1.25) mg/dL Glucose 109 H (74-99) mg/dL Microbiology - Last 24 Hours (Table) 11/24/16 21:30 CSF Gram Stain - Preliminary Cerebral Spinal Fluid CSF Culture - Preliminary Assessment and Plan (1) Facial paralysis/[place] palsy Status: Acute Code(s): G51.0 - PATEL'S PALSY (2) Diffuse large B-cell lymphoma of lymph nodes of multiple regions Status: Chronic Code(s): C83.38 - DIFFUSE LARGE B-CELL LYMPHOMA, LYMPH NODES OF MULTIPLE SITES Plan: This patient is a 51-year-old male who has a history of diffuse large B-cell lymphoma. He underwent recent lumbar puncture which confirms evidence of leptomeningeal spread of the B-cell lymphoma. He had a discussion today with the oncology team and he is now proceeding with intrathecal chemotherapy. He has had episodes of intermittent lethargy off-and-on. He is easily arousable. His left Patel's palsy shows no significant improvement. We will await further evaluation and recommendations from the oncology team in terms of further management. His overall prognosis at this time remains very guarded. We will leave further care of his B-cell lymphoma to the oncology service. We will continue to monitor his overall neurological status as needed. His overall long -term prognosis at this time remains very guarded.
--- NOTE | 2016-11-28 18:55 | PN ---
DATE OF SERVICE: 11/28/2016 PRESENTING COMPLAINT: Weak and tired. INTERVAL HISTORY: This is a patient with a large B-cell lymphoma, initially admitted with nausea, vomiting. Earlier today Dr. Stacy spoke to the family and later patient decided to go with intrathecal chemotherapy. Patient's family decided also to proceed to DNR. Patient at a little bit. Feels weak and tired. The patient is a full assist. Family members at the bedside. Review of systems done for constitutional, cardiovascular, GI, pulmonary; relevant findings as above. Current medications are reviewed that include: IV acyclovir, IV ceftriaxone and vancomycin. On examination, temperature 97, pulse 93, respiratory rate 18, blood pressure 140/82. Pulse ox 96% on room air. GENERAL APPEARANCE: Sitting up, awake. EYES: Pupils equal. Conjunctivae normal. NECK: JVD not raised. RESPIRATORY: Effort normal. LUNGS: Fair air entry. CARDIOVASCULAR: First and second sounds normal. No edema. ABDOMEN: Soft, nontender. PSYCHIATRY: Awake, answering simple questions. CENTRAL NERVOUS SYSTEM: Patel's palsy. INVESTIGATIONS: Potassium 2.8, BUN 12. Creatinine 0.54. ASSESSMENT: 1. Dehydration, present on admission. 2. Hypokalemia. 3. 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 4. Medical debility, patient needs full assistance 5. Patel's palsy left side. 6. Severe hypokalemia. PLAN: Continue current medication and treatment plan. At this point, family decided for intrathecal chemotherapy. Overall prognosis remains guarded. Will follow.
[2016-11-28] MEDS ORDERED: Potassium Replacement Protocol 1 EACH MISC MISCELLANE PRN (21:18)
[2016-11-28] MEDS: hydrALAZINE HCL 20 MG/ML 1 ML VIAL IVP PRN (22:00)
[2016-11-28] MEDS ORDERED: POTASSIUM CHLORIDE 20 MEQ in WATER FOR INJECTION 1 100ML.BAG IVPB ONE (22:00)
[2016-11-29] MEDS ORDERED: RX INFO: IV CONTRAST WAS GIVEN 1 EACH MISC MISCELLANE PRN (02:38)
[2016-11-29 02:50] LABS: Glucose,Whole Blood 112 mg/dL (75-99)
--- NOTE | 2016-11-29 03:15 | CT ---
EXAMINATION TYPE: CT brain wo con DATE OF EXAM: 11/29/2016 3:10 AM COMPARISON: 11/21/2016 HISTORY: code stroke CT DLP: --- mGycm Automated exposure control for dose reduction was used. FINDINGS: There is no acute intracranial hemorrhage, mass effect, or midline shift identified. The cortical sulci and ventricles are prominent with mild atrophic changes of brain. Mild periventric ular white matter ischemic changes are suggested in the brain. Again noted is slightly prominent tem poral horn of the right lateral ventricle. The globes are intact and the visualized sinuses are clear . IMPRESSION: No acute intracranial hemorrhage, mass effect, or midline shift is seen. There is no significant interval change.
[2016-11-29] MEDS ORDERED: Potassium Replacement Protocol 1 EACH MISC MISCELLANE PRN (04:07)
[2016-11-29] MEDS ORDERED: POTASSIUM CHLORIDE 20 MEQ in WATER FOR INJECTION 1 100ML.BAG IVPB ONE (04:07)
[2016-11-29] MEDS: LORazepam 2 MG/ML SYRINGE IV PRN (04:24)
--- NOTE | 2016-11-29 04:24 | CT ---
EXAMINATION TYPE: CT angio head neck CTA head. DATE OF EXAM: 11/29/2016 3:33 AM COMPARISON: NONE HISTORY: code stroke CT DLP: 491.30 mGycm CONTRAST: CTA [place] with 3-D reconstruction is performed and with IV Contrast, patient injected with 65 mL of Omnipaque 350. Contrast CTA of the [place] was performed 3-D reconstruction imaging obtained at a separate workstation. Vertebrobasilar system as well as intracranial portions of the internal carotid arterie s and their major tributaries are patent. I do not see evidence for sizable aneurysm or vascular mal formation. Please note MRI provides greater sensitivity and specificity. Visualized brain appears g rossly unremarkable. The posterior communicating arteries are not well demonstrated on the right side. The anterior commun icating artery is poorly demonstrated. IMPRESSION: No evidence for sizable aneurysm or vascular malformation. EXAMINATION TYPE: CT angio head neck CTA neck DATE OF EXAM: 11/29/2016 3:33 AM HISTORY: code stroke COMPARISON: CT chest and abdomen September 29, 2016 CT DLP: 491.30 mGycm. Automated Exposure Control for Dose Reduction was Utilized. TECHNIQUE: CTA scan of the neck is performed with IV Contrast, patient injected with 65 mL of Omnipa que 350, axial images are obtained, coronal and sagittal reformatted images are reviewed. Three-D rec onstructed images are created on an independent workstation and reviewed. FINDINGS: The aortic arch is not completely included limiting the evaluation of the origin of the left common c arotid artery. Visualized opacified by lateral vertebral arteries showed no significant stenotic changes. The right common carotid artery showed no significant stenotic changes. The right carotid bulb and ri ght internal and external carotid arteries showed no significant atheromatous changes or narrowing. O nly minor atherosclerotic calcified plaques are suggested in the right carotid bulb area. The left common carotid artery origin is not included. The visualized left common carotid artery showed no significant atheromatous changes. Left carotid bu lb showed no significant atheromatous narrowing. The left external carotid artery appears grossly unr emarkable. The left internal carotid artery is of smaller caliber when compared to right and is proba yves related to diffuse atheromatous changes. The sagittal image 15 of 30 showed atheromatous changes with approximately 50% narrowing in the proxi mal left internal carotid artery. Other: There is evidence of large soft tissue masses in the left paratracheal area in the superior me diastinum measuring 3.4 x 3.1 cm in the axial image 8 and is probably related to multiple enlarged ly mph nodes. This mass is not related to thyroid gland. IMPRESSION: 1. There is evidence of approximately 50% narrowing in the proximal left internal carotid artery with diffuse narrowing in the rest of the left internal carotid artery probably related to diffuse athero sclerotic changes without significant calcified plaques. No significant focal occlusion is noted in t he left internal carotid artery. This may also be related to small caliber left internal carotid juan david ry. The petrous and cavernous portion of left internal carotid artery is also smaller when compared t o right. The origin of left common carotid artery is not included in these images. Previous CT scan images of chest September 29, 2016 showed no significant stenosis in the origin of left common carotid artery. A clinical correlation and follow-up is recommended. 2. Mild atherosclerotic changes are suggested in the right carotid bulb without significant stenosis in the right carotid bulb internal and external carotid artery. 3. Bilateral vertebral arteries showed no significant stenotic changes. 4. [place] arterial structures revealed no significant stenotic changes. 5. There is evidence of soft tissue masses in the superior mediastinum and are probably related to mu ltiple enlarged lymph nodes. Patient has known history of lymphoma according to the previous CT scan of chest and abdomen and pelvis September 29, 2016. There is increased lymphadenopathy since previous CT is chest of September 29, 2016 and the visualized upper chest..
[2016-11-29] MEDS ORDERED: VANCOMYCIN TROUGH DUE 1 EACH MISC MISCELLANE ONE (07:00)
--- NOTE | 2016-11-29 07:40 | PN ---
DATE OF SERVICE: 11/28/2016 Reason for followup is abnormal CSF exam with a question of possible meningitis. INTERVAL HISTORY: The patient was seen on rounds early this afternoon where the patient remains to be afebrile. He was sleepy, but arousable. Denied any headache. No nausea and vomiting. No abdominal pain or any diarrhea. On examination, blood pressure is 140/82 with a pulse of 94, temperature 97.6. He is 96% on room air. General description is a middle-age male lying in bed in no distress. RESPIRATORY SYSTEM: Unlabored breathing. Clear to auscultation anteriorly. HEART: S1, S2. Regular rate and rhythm. ABDOMEN: Soft, no tenderness. LABS: Hemoglobin is11.3 with white count of 10.8. BUN of 14, creatinine 0.60. The CSF culture has been negative. The CSF cytology did show atypical lymphocyte population consistent with involvement by B cell non-Hodgkin lymphoma. DIAGNOSTIC IMPRESSION AND PLAN: Patient with history of large B cell lymphoma in a patient who did have an LP done with concern for possible meningitis on the basis of the chemical information, however, the clinical suspicion was low for a meningitis. Clinically as the patient was not running any fever and no headache, now with confirmation of the leptomeningeal spread and the CSF culture negative. Antibiotics and antiviral has been discontinued. Will continue monitoring closely off antibiotics. Oncology is planning for further intrathecal chemo. Overall prognosis remains to be guarded. Continue supportive care. MTDD
[2016-11-29 07:52] VITALS: BP 188/106; PULSE 134; RESP 22; TEMP 98
--- NOTE | 2016-11-29 07:59 | P.PN ---
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 Patient also had evidence of a acute Palma's palsy last week. This morning at about 2:30 AM he showed significant weakness on his left side. A code stroke was initiated. He was sent for computed tomography scan of the brain and CTA angiogram. CAT scan of the brain revealed no acute intracranial abnormality. No evidence of acute stroke or hemorrhage. CTA angiogram results failed to reveal any significant stenosis. Patient is noted to be lethargic this morning but is moving his left side. After the code stroke was called the neuro interventional list did review all of his studies. He was not a candidate for TPA. Patient's family was called to the bedside early this morning and they have made him a DO NOT RESUSCITATE CODE STATUS. Patient was scheduled to undergo intrathecal chemotherapy for further management of leptomeningeal spread of his B-cell lymphoma. Family now to discuss this further with oncology this morning. Patient is arousable but not clearly speaking and continues to show left facial droop. Family is to discuss further treatment plans with oncology this morning. His overall prognosis at this time remains very guarded. Objective - Vital Signs Vital signs: Vital Signs Temp 98 F 11/29/16 07:00 Pulse 134 H 11/29/16 07:00 Resp 22 11/29/16 07:00 BP 188/106 11/29/16 07:00 Pulse Ox 97 11/29/16 07:00 Intake & Output 11/28/16 11/29/16 11/29/16 18:59 06:59 18:59 Intake Total 360 Output Total 300 Balance -300 360 Intake: IV 160 Potassium Chloride 20 meq 100 In Water For Injection 1 100ml.bag @ 50 mls/hr IVPB ONCE ONE Rx#: [id number] ns@20 60 Oral 200 Output: Urine 300 Other: Voiding Method Bedside Commode Bedside Commode Urinal Urinal # Voids 2 - Exam Physical examination: PHYSICAL EXAMINATION: Patient is resting comfortably in bed. Patient is lethargic but arousable. He is noted to move his left side occasionally. VITAL SIGNS: Blood pressure is [157/103]. Heart rate is [1:15]. Respiration is [ 20]. Temperature is [98.0]. HEENT: Head is atraumatic, neck is supple, there were no carotid bruits. CHEST: Lungs are clear to auscultation and percussion. CARDIAC: S1, S2 normal rate and rhythm. There is no murmur. ABDOMEN: Soft and nontender. Bowel sounds are present. EXTREMITIES: There is no pedal edema. Peripheral pulses are present. Neurological examination: Patient's neurological examination is unchanged from yesterday. He has a left sided Palma's palsy on examination. Patient is easily arousable when he is sleeping. Patient is noted to show more left-sided weakness as compared to yesterday. - Labs CBC & Chem 7: 11/25/16 06:35 11/29/16 02:20 Labs: Abnormal Lab Results - Last 24 Hours (Table) 11/28/16 11/28/16 11/29/16 Range/Units 07:20 20:25 02:20 Potassium 2.8 L* 3.1 L 2.9 L* (3.5-5.1) mmol/L Carbon Dioxide 32 H (22-30) mmol/L Creatinine 0.54 L (0.66-1.25) mg/dL Glucose 109 H (74-99) mg/dL POC Glucose (mg/dL) (75-99) mg/dL 11/29/16 Range/Units 02:29 Potassium (3.5-5.1) mmol/L Carbon Dioxide (22-30) mmol/L Creatinine (0.66-1.25) mg/dL Glucose (74-99) mg/dL POC Glucose (mg/dL) 112 H (75-99) mg/dL Microbiology - Last 24 Hours (Table) 11/24/16 21:30 CSF Gram Stain - Preliminary Cerebral Spinal Fluid CSF Culture - Preliminary Assessment and Plan (1) Facial paralysis/[place] palsy Status: Acute Code(s): G51.0 - PALMA'S PALSY (2) Diffuse large B-cell lymphoma of lymph nodes of multiple regions Status: Chronic Code(s): C83.38 - DIFFUSE LARGE B-CELL LYMPHOMA, LYMPH NODES OF MULTIPLE SITES Plan: This patient is a 51-year-old male with 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 He shouldn't early this morning at 2:30 AM showed new signs of left-sided weakness. Cold stroke was called. Neuro interventional is reviewed all of his studies including CT angiogram and computed tomography scan of the brain. He was not a candidate for TPA. They recommended possible MRI study to be done for further evaluation. Patient has also had MRI last week which failed to reveal spread of his B-cell lymphoma to the brain at that time. Patient is being considered for intrathecal chemotherapy. Family was called early this morning and have now made him a DO NOT RESUSCITATE CODE STATUS. They will discuss further treatment with oncology this morning given his new findings early this morning. His overall prognosis at this time remains very guarded. We will await further recommendations from oncology and the family in regards to further treatment plans.
[2016-11-29] MEDS: cloNIDine HCL 0.1 MG TAB PO SCH (09:09)
[2016-11-29] MEDS: amLODIPine 10 MG TAB PO SCH (09:09)
[2016-11-29] MEDS: PANTOPRAZOLE 40 MG TABLET PO SCH (09:10)
[2016-11-29] MEDS: MORPHINE SULFATE ER 30 MG TABLET PO SCH (09:10)
[2016-11-29] MEDS ORDERED: LORazepam 2 MG/ML SYRINGE IV PRN (09:33)
[2016-11-29] MEDS: MORPHINE SULFATE 2 MG/ML SYRINGE IVP PRN ×2 (10:19→15:54)
[2016-11-29] MEDS: cloNIDine 0.2 MG/24HR PATCH 1 PATCH PATCH TRANSDERM SCH (11:05)
--- NOTE | 2016-11-29 14:27 | PN ---
DATE OF SERVICE: 11/29/2016 Reason for followup is abnormal CSF with a question of possible meningitis. INTERVAL HISTORY: The patient is afebrile. He was noticed to have mental status changes last night which concern for possible stroke. Patient also did have significant elevation of the blood pressure which is 188 systolic and 106 diastolic. He remains to be afebrile. He is awake and answers some simple questions. The family has been around. No nausea, vomiting, or any diarrhea. On examination, blood pressure is 188/106 with a pulse of 124, temperature is 98. He is 97% on room air. General description is a middle-age male, lying in bed in no distress. RESPIRATORY SYSTEM: Unlabored breathing. Clear to auscultation anteriorly. HEART: S1, S2 with regular rate and rhythm. ABDOMEN: Soft, no tenderness. LABS: His potassium is low at 2.9. The C. diff culture remains to be negative. DIAGNOSTIC IMPRESSION AND PLAN: Patient with history of lymphoma now with concern for leptomeningeal spread. Abnormal CSF findings were more likely on the basis of the leptomeningeal spread rather than secondry to bacterial meningitis or viral as the patient's cultures remained negative. HSV DNA was negative as well. Antibiotics have been discontinued. No need for further antibiotic therapy at this point. Continue management of his underlying blood pressure, Electrolytes per Primary Team and management of the underlying malignancy by Oncology. Family was present at the bedside. Their questions were answered. YAMINI
--- NOTE | 2016-11-29 21:53 | P.PN ---
Subjective The patient's responsiveness had acutely decreased overnight due to which a code stroke was called. CT brain showed no new changes . The patient subsequently has been much more lethargic and mostly unresponsive. Due to change in his condition, a repeat meeting was held with his family Objective - Vital Signs Vital signs: Vital Signs Temp 98 F 11/29/16 07:00 Pulse 134 H 11/29/16 07:00 Resp 22 11/29/16 07:00 BP 188/106 11/29/16 07:00 Pulse Ox 97 11/29/16 07:00 Intake & Output 11/29/16 11/29/16 11/30/16 06:59 18:59 06:59 Intake Total 360 225 Balance 360 225 Weight 53.3 kg Intake: IV 160 225 Potassium Chloride 20 meq 100 100 In Water For Injection 1 100ml.bag @ 50 mls/hr IVPB ONCE ONE Rx#: [id number] ns@25 60 125 Oral 200 Other: Voiding Method Bedside Commode Diaper Urinal # Voids 2 - Constitutional Constitutional Comment(s): Very lethargic with occasional eye opening. The patient however is not responding. Mild grimacing, to sternal rub - EENT EENT Comment(s): Left-sided Patel's palsy Eyes: Present: PERRLA - Respiratory Respiratory: bilateral: CTA - Cardiovascular Rhythm: regular Heart sounds: normal: S1, S2 - Gastrointestinal General gastrointestinal: Present: normal bowel sounds, soft - Integumentary Integumentary: Present: normal - Neurologic Neurologic: Present: focal deficits (Left-sided Patel's palsy. Obtundation) - Musculoskeletal Musculoskeletal: Present: generalized weakness - Labs CBC & Chem 7: 11/25/16 06:35 11/29/16 02:20 Labs: Abnormal Lab Results - Last 24 Hours (Table) 11/29/16 11/29/16 Range/Units 02:20 02:29 Potassium 2.9 L* (3.5-5.1) mmol/L POC Glucose (mg/dL) 112 H (75-99) mg/dL Microbiology - Last 24 Hours (Table) 11/24/16 21:30 CSF Gram Stain - Final Cerebral Spinal Fluid CSF Culture - Final Assessment and Plan (1) Altered mental state Narrative/Plan: There has been further deterioration, with increased lethargy and her condition. As noted, the patient is mostly unresponsive currently Status: Acute (2) Facial paralysis/[place] palsy Narrative/Plan: This is a persistent and unchanged Status: Acute (3) Nausea & vomiting Status: Acute SNOMED Code(s): 71527823 (4) Diffuse large B-cell lymphoma of lymph nodes of multiple regions Status: Chronic (5) Cancer with leptomeningeal spread Narrative/Plan: The patient's CSF was positive for B-cell lymphoma, confirming leptomeningeal lymphomatosis. Given the major change in prognosis based on this, we had an extensive discussion with the patient and his family yesterday. Ultmately they opted for active treatment, and the patient was supposed to get intrathecal DepoCyt today. However today, his condition has deteriorated, which most likely represents an effect of his disease. This change, in my opinion affects his prognosis even more adversely. This was discussed in detail with multiple members of the family including a sister and brother. At this time, if we proceed with the treatment, there is no guarantee that the patient will respond. In addition, even if there is a response, it cannot be predicted when that will occur. If immediate major responses not obtained, the patient will need aggressive supportive measures which could even include placement of a feeding tube. If we were to commits to active treatment, would also ideally need to commit to agressive supportive care. However, the patient had clearly indicated to his family that he did not want CPR, ventilator support or a feeding tube. Disease was also quite aggressive, and though in remission at this time, he has not completed the planned cycles of systemic therapy. Therefore even if he were to respond to intrathecal chemotherapy, he would need to improve sufficiently to subsequently go back on systemic chemotherapy. In the current situation the possibility of that appears to be very slim. Based on the above factors, after extensive discussion, and the family were all in agreement that we should pursue comfort care. The same was discussed with the admitting service. Blood draws to be discontinued. The patient will be placed on morphine and Ativan when necessary for comfort. Hospice will also be consulted Status: Acute
--- NOTE | 2016-11-30 08:37 | DS ---
DATE OF ADMISSION: 11/20/2016 DATE OF DISCHARGE: 11/29/2016 FINAL DIAGNOSES: 1. Diffuse large B-cell lymphoma with [employer] involvement. 2. Medical debility, patient needs full assistance. 3. Patel's palsy on the left side. 4. Severe hypokalemia. 5. Dehydration, present on admission, decreased. ( ) diffuse large B-cell lymphoma. CONSULTATIONS: 1. Dr. Perdomo from Infectious Disease. 2. Dr. Brii Melara from Neurology. 3. Dr. Smith/Dr. tSacy from Oncology. 4. Dr. Baeza from Pain Procedure. 5. Dr. Wesly Kumar from Cardiology. HOSPITAL COURSE: This is a patient presented with nausea, vomiting and pain. Patient has known history of large B-cell lymphoma, ( ) lymphoma and because of overall going downhill, it was decided to make the patient hospice, comfort care. More details are in the hospital chart. On examination, decreased responsiveness. LUNGS: Decreased breath sounds. DISPOSITION: Hospice house in [place] with [facility]. DISCHARGE MEDICATIONS: 1. Ativan 1 mg p.o. q.4 p.r.n. for anxiety. 2. Roxanol 20 mg/mL 5 mg p.o. q.4 p.r.n. for pain. 3. Scopolamine patch q.72h.
== END 2016-11-29 16:20 | disposition hospice, home (50) | DRG 840 ==
LOC: EC 00:58 → 5ONC 02:53 → 6ICU 11-21 03:03 → 5ONC 11-21 11:33 → 6ICU 11-22 04:34 → 6SEL 11-22 10:44 → 5ONC 11-24 16:10
PROVIDERS: ADMIT Hospitalist; ATTEND Hospitalist
DX: C83.30 Diffuse large B-cell lymphoma, unspecified site (principal); E43 Unspecified severe protein-calorie malnutrition; G03.8 Meningitis due to other specified causes; I67.4 Hypertensive encephalopathy; B37.0 Candidal stomatitis; G91.2 (Idiopathic) normal pressure hydrocephalus; E86.0 Dehydration; E87.6 Hypokalemia; D63.8 Anemia in other chronic diseases classified elsewhere; G51.0 Bell's palsy; K40.90 Unilateral inguinal hernia, without obstruction or gangrene, not specified as recurrent; M19.90 Unspecified osteoarthritis, unspecified site; M54.2 Cervicalgia; M54.5 Low back pain; R19.7 Diarrhea, unspecified; M25.511 Pain in right shoulder; I10 Essential (primary) hypertension; G89.4 Chronic pain syndrome; Z51.5 Encounter for palliative care; Z68.1 Body mass index [BMI] 19.9 or less, adult; Z66 Do not resuscitate; Z79.899 Other long term (current) drug therapy; Z79.891 Long term (current) use of opiate analgesic; Z87.891 Personal history of nicotine dependence; Z82.49 Family history of ischemic heart disease and other diseases of the circulatory system
CPT/HCPCS: 36415; 70450; 70496; 70498; 70553; 71010; 74000; 80048; 80051; 80053; 80202; 81003; 82150; 82550; 82553; 82565; 82945; 82947; 83605; 83690; 83735; 84100; 84132; 84157; 84484; 84520; 85025; 85027; 85610; 85730; 87040; 87070; 87205; 87529; 87798; 88108; 88184; 88185; 89050; 93005; 94760; 96361; 96365; 96375; 99285